=== PATIENT | female | born 1930 | race Caucasian/White ===

== ENCOUNTER → 2016-07-26 | Outpatient (CLI) | payer MEDICARE, OTHER | LOC: MW.CHIM 08:00 | PROVIDERS: ATTEND Internal Medicine | DX: I42.8 Other cardiomyopathies (principal); I10 Essential (primary) hypertension; I34.0 Nonrheumatic mitral (valve) insufficiency; I35.1 Nonrheumatic aortic (valve) insufficiency | CPT/HCPCS: 99204 ==

== ENCOUNTER → 2016-08-05 | Outpatient (CLI) | payer MEDICARE, OTHER ==
--- NOTE | 2016-08-09 11:44 | ECHO ---
EXAM DATE: 08/05/16 PATIENT'S AGE: 85 The echocardiogram report can be seen in this patient's EMR (Electronic Medical Record) in the Reports section. FOREIGN
== END | disposition home or self-care (01) ==
LOC: MW.US 13:56
PROVIDERS: ATTEND Internal Medicine
DX: I42.9 Cardiomyopathy, unspecified (principal); I34.0 Nonrheumatic mitral (valve) insufficiency; I35.1 Nonrheumatic aortic (valve) insufficiency; I51.7 Cardiomegaly
CPT/HCPCS: 93306

== ENCOUNTER 2017-05-11 13:41 | Emergency (ER) | payer MEDICARE, OTHER ==
[2017-05-11] MEDS ORDERED: Ondansetron 4 MG/2 ML SDV IVPUSH ONE (13:50)
[2017-05-11] MEDS ORDERED: Morphine 2 MG/ML Syringe IVPUSH ONE (13:50)
--- NOTE | 2017-05-11 13:54 | EDM.PDOC ---
ED HPI GENERAL MEDICAL PROBLEM - General Chief Complaint: Back Pain or Injury Stated Complaint: BACK PAIN Time Seen by Provider: 05/11/17 13:45 - History of Present Illness INITIAL COMMENTS - FREE TEXT/NARRATIVE: HISTORY AND PHYSICAL: History of present illness: Patient is an 86-year-old female presents concern of acute low back pain she was in the clinic and bent over and got an acute pain in her lower back in the region of her lower lumbar spine she has had back problems but there 20 years removed which she had surgery of her upper back she denies numbness weakness incontinence or retention bowel bladder states pain is worse with any movement Review of systems: As per history of present illness and below otherwise all systems reviewed and negative. Past medical history: As per history of present illness and as reviewed below otherwise noncontributory. Surgical history: As per history of present illness and as reviewed below otherwise noncontributory. Social history: No reported history of drug or alcohol abuse. Family history: As per history of present illness and as reviewed below otherwise noncontributory. Physical exam: HEENT: Atraumatic, normocephalic, pupils reactive, negative for conjunctival pallor or scleral icterus, mucous membranes moist, throat clear, neck supple, nontender, trachea midline. Lungs: Clear to auscultation, breath sounds equal bilaterally, chest nontender. Heart: S1S2, regular, negative for clicks, rubs, or JVD. Abdomen: Soft, nondistended, nontender. Negative for masses or hepatosplenomegaly. Negative for costovertebral tenderness. Pelvis: Stable nontender. Genitourinary: Deferred. Rectal: Deferred. Extremities: Atraumatic, negative for cords or calf pain. Neurovascular unremarkable. Neuro: Awake, alert, oriented. Cranial nerves II through XII unremarkable. Cerebellum unremarkable. Motor and sensory unremarkable throughout. Exam nonfocal. Back: Patient has tenderness in the paravertebral region of the lumbar spine no vertebral body or point tenderness motor and sensory upper inferior extremity is unremarkable neurovascular exams unremarkable Diagnostics: EBC CMP UA chest x-ray EKG CT lumbar spine Therapeutics: Saline at 125 mL an hour morphine sulfate 2 mg IV Zofran 4 mg IV Impression: #1 acute low back pain Definitive disposition and diagnosis as appropriate pending reevaluation and review of above. - Related Data Allergies Allergy/AdvReac Type Severity Reaction Status Date / Time No Known Allergies Allergy Verified 06/11/15 10:34 Home Meds: Home Meds Aspirin [Adult Low Dose Aspirin EC] 81 mg PO DAILY 04/01/14 [History] Losartan Potassium [Cozaar] 50 mg PO DAILY 04/01/14 [History] Spironolactone [Aldactone] 25 mg PO DAILY 04/01/14 [History] Carvedilol [Coreg] 12.5 mg DAILY 05/11/17 [History] Past Medical History HEENT History: Reports: Cataract Cardiovascular History: Reports: Heart Failure, Pacemaker Respiratory History: Reports: None Gastrointestinal History: Reports: None Genitourinary History: Reports: None 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: Musculoskeletal History: Reports: Arthritis Neurological History: Reports: None Psychiatric History: Reports: None Endocrine/Metabolic History: Reports: None Hematologic History: Reports: None Immunologic History: Reports: None Oncologic (Cancer) History: Reports: None Dermatologic History: Reports: None - Infectious Disease History Infectious Disease History: Reports: Chicken Pox, Measles, Mumps, Rubella, Shingles - Past Surgical History HEENT Surgical History: Reports: Cataract Surgery Social & Family History - Family History Family Medical History: Noncontributory - Tobacco Use Smoking Status *Q: Never Smoker Second Hand Smoke Exposure: No - Alcohol Use Days Per Week of Alcohol Use: 0 - Recreational Drug Use Recreational Drug Use: No ED ROS GENERAL - Review of Systems Review Of Systems: ROS reveals no pertinent complaints other than HPI. ED EXAM, GENERAL - Physical Exam Exam: See Below (See dictation) Course - Vital Signs Text/Narrative:: Patient with significant improvement able to ambulate weight-bear discussed admission for observation patient declines and request discharge home states she 'll be safe and has no concerns about ability to ambulate perform routine functions or fall risk Last Recorded V/S: Last Vital Signs Temp 36.3 C 05/11/17 13:57 Pulse 60 05/11/17 13:57 Resp 16 05/11/17 13:57 BP 116/53 L 05/11/17 13:57 Pulse Ox 97 05/11/17 13:57 - Orders/Labs/Meds Orders: Active Orders 24 hr Category Date Time Status EKG Documentation Completion [RC] STAT Care 05/11/17 13:50 Active Sodium Chloride 0.9% [Normal Saline] 1,000 ml Med 05/11/17 14:00 Active IV STAT Medication Orders Sodium Chloride (Normal Saline) 1,000 mls @ 125 mls/hr IV STAT [facility] Labs: Laboratory Tests 05/11/17 05/11/17 05/11/17 Range/Units 14:03 14:03 15:30 WBC 5.74 (4.0-11.0) K/uL RBC 3.68 L (4.30-5.90) M/uL Hgb 11.0 L (12.0-16.0) g/dL Hct 33.4 L (36.0-46.0) % MCV 90.8 (80.0-98.0) fL MCH 29.9 (27.0-32.0) pg MCHC 32.9 (31.0-37.0) g/dL RDW Std Deviation 44.6 (28.0-62.0) fl RDW Coeff of Sylwia 13 (11.0-15.0) % Plt Count 184 (150-400) K/uL MPV 10.80 (7.40-12.00) fL Neut % (Auto) 60.6 (48.0-80.0) % Lymph % (Auto) 26.3 (16.0-40.0) % [place] % (Auto) 11.5 (0.0-15.0) % Eos % (Auto) 1.6 (0.0-7.0) % Baso % (Auto) 0.0 (0.0-1.5) % Neut # (Auto) 3.5 (1.4-5.7) K/uL Lymph # (Auto) 1.5 (0.6-2.4) K/uL [place] # (Auto) 0.7 (0.0-0.8) K/uL Eos # (Auto) 0.1 (0.0-0.7) K/uL Baso # (Auto) 0.0 (0.0-0.1) K/uL Nucleated RBC % 0.0 /100WBC Nucleated RBCs # 0 K/uL Sodium 136 (136-146) mmol/L Potassium 4.4 (3.5-5.1) mmol/L Chloride 104 (98-110) mmol/L Carbon Dioxide 23 (21-31) mmol/L BUN 10 (6.0-23.0) mg/dL Creatinine 0.9 (0.6-1.5) mg/dL Est Cr Clr Drug Dosing TNP Estimated GFR (MDRD) 59.1 ml/min Glucose 86 (60-110) mg/dL Calcium 9.2 (8.8-10.8) mg/dL Total Bilirubin 0.6 (0.1-1.5) mg/dL AST 18 (5-40) IU/L ALT 13 (8-54) IU/L Alkaline Phosphatase 48 (40-150) Total Protein 6.3 (6.0-8.0) g/dL Albumin 3.9 (3.4-4.8) g/dL Globulin 2.4 (2.0-3.5) g/dL Albumin/Globulin Ratio 1.6 (1.3-2.8) Urine Color YELLOW Urine Appearance CLEAR Urine pH 7.0 (5.0-8.0) Ur Specific [place] 1.010 (1.001-1.035) Urine Protein NEGATIVE (NEGATIVE) mg/dL Urine Glucose (UA) NEGATIVE (NEGATIVE) mg/dL Urine Ketones NEGATIVE (NEGATIVE) mg/dL Urine Occult Blood NEGATIVE (NEGATIVE) Urine Nitrite NEGATIVE (NEGATIVE) Urine Bilirubin NEGATIVE (NEGATIVE) Urine Urobilinogen 0.2 (<2.0) EU/dL Ur Leukocyte Esterase NEGATIVE (NEGATIVE) Urine RBC 0-1 (0-2/HPF) Urine WBC 0-1 (0-5/HPF) Ur Epithelial Cells RARE (NONE-FEW) Urine Bacteria RARE (NEGATIVE) Meds: Medications Generic Name Dose Route Start Last Admin Trade Name Freq PRN Reason Stop Dose Admin Sodium Chloride 1,000 mls @ 125 mls/hr 05/11/17 14:00 Normal Saline IV STAT [facility] Discontinued Medications Generic Name Dose Route Start Last Admin Trade Name Freq PRN Reason Stop Dose Admin Acetaminophen 1,000 mg 05/11/17 15:37 05/11/17 15:43 Tylenol Extra Strength PO 05/11/17 15:38 1,000 mg ONETIME ONE Administration Morphine Sulfate 2 mg 05/11/17 13:50 Morphine IVPUSH 05/11/17 13:51 ONETIME ONE Ondansetron HCl 4 mg 05/11/17 13:50 Zofran IVPUSH 05/11/17 13:51 ONETIME ONE Departure - Departure Time of Disposition: 16:37 Disposition: Home, Self-Care 01 Condition: Good Clinical Impression: Back pain, Compression fracture - Discharge Information Referrals: PCP,None [Primary Care Provider] - Forms: ED Department Discharge Additional Instructions: The following information is given to patients seen in the emergency department who are being discharged to home. This information is to outline your options for follow-up care. We provide all patients seen in our emergency department with a follow-up referral. The need for follow-up, as well as the timing and circumstances, are variable depending upon the specifics of your emergency department visit. If you don't have a primary care physician on staff, we will provide you with a referral. We always advise you to contact your personal physician following an emergency department visit to inform them of the circumstance of the visit and for follow-up with them and/or the need for any referrals to a consulting specialist. The emergency department will also refer you to a specialist when appropriate. This referral assures that you have the opportunity for followup care with a specialist. All of these measure are taken in an effort to provide you with optimal care, which includes your followup. Under all circumstances we always encourage you to contact your private physician who remains a resource for coordinating your care. When calling for followup care, please make the office aware that this follow-up is from your recent emergency room visit. If for any reason you are refused follow-up, please contact the [facility] emergency department at and asked to speak to the emergency department charge nurse. Motrin/Tylenol as directed follow-up primary medical doctor call to schedule appointment return as needed as discussed - My Orders Last 24 Hours: My Active Orders 05/11/17 13:50 EKG Documentation Completion [RC] STAT 05/11/17 14:00 Sodium Chloride 0.9% [Normal Saline] 1,000 ml IV STAT - Assessment/Plan Last 24 Hours: My Active Orders 05/11/17 13:50 EKG Documentation Completion [RC] STAT 05/11/17 14:00 Sodium Chloride 0.9% [Normal Saline] 1,000 ml IV STAT
[2017-05-11] MEDS ORDERED: Sodium Chloride 0.9% 1,000 ML IV SCH (14:00)
[2017-05-11 14:17] VITALS: BP 116/53
[2017-05-11 14:34] LABS: CHLORIDE,CL 104 mmol/L (98-110); SODIUM,NA 136 mmol/L (136-146)
--- NOTE | 2017-05-11 14:59 | CR ---
EXAMINATION: AP chest radiograph. HISTORY: Shortness of breath. Comparison: 09/21/2016. FINDINGS: The trachea is midline. The heart is borderline in size. There is a left-sided pacemaker noted. Chron ic interstitial prominence. No focal consolidation or pleural effusion. Osseous structures appear osteopenic. IMPRESSION: No acute cardiopulmonary process.
--- NOTE | 2017-05-11 15:09 | CT ---
EXAMINATION: CT lumbar spine HISTORY: Pain COMPARISON: None TECHNIQUE: Axial CT images obtained through the lumbar spine without contrast. Coronal and sagittal r econstructions obtained. FINDINGS: Atelectasis noted within the lung bases. Visualized osseous structures appear osteopenic. T here is a mild compression deformity at T11. Mild superior endplate compression deformity noted at L2 . SI joints are symmetric. Mild marginal osteophytes noted. The visualized retroperitoneal structures appear grossly normal. IMPRESSION: 1. Moderate generalized osteopenia. 2. Age-indeterminate mild compression deformity at T11 and superior endplate compression deformity at L2. 3. Otherwise mild degenerative changes noted within the lumbar spine.
[2017-05-11] MEDS ORDERED: Acetaminophen 500 MG Tab PO ONE (15:37)
== END 2017-05-11 16:50 | disposition home or self-care (01) ==
LOC: MW.ED 13:41
DX: M48.55XA Collapsed vertebra, not elsewhere classified, thoracolumbar region, initial encounter for fracture (principal); Z79.82 Long term (current) use of aspirin; Z98.890 Other specified postprocedural states
CPT/HCPCS: 36415; 71045; 72131; 80053; 81001; 85025; 93005; 96360; 96361; 99284; A9270

== ENCOUNTER 2017-05-14 08:59 | Observation (INO) | payer MEDICARE, OTHER ==
[2017-05-14] MEDS ORDERED: Morphine 2 MG/ML Syringe IM ONE (09:22)
[2017-05-14] MEDS ORDERED: Ondansetron 4 MG Tab.DIS PO ONE (09:22)
--- NOTE | 2017-05-14 09:56 | EDM.PDOC ---
ED HPI GENERAL MEDICAL PROBLEM - General Chief Complaint: Back Pain or Injury Stated Complaint: BACK PAIN Time Seen by Provider: 05/14/17 09:49 - History of Present Illness INITIAL COMMENTS - FREE TEXT/NARRATIVE: HISTORY AND PHYSICAL: History of present illness: Patient is a 86-year-old female was seen by myself on the for low back pain that occurred when she bent over to clinic she was diagnosed with a compression fracture she opted for discharge home she returns now with low back pain intractable unresponsive to medication. She had difficulty getting around at home with this pain. There's been no numbness weakness incontinence or retention of bowel or bladder Review of systems: As per history of present illness and below otherwise all systems reviewed and negative. Past medical history: As per history of present illness and as reviewed below otherwise noncontributory. Surgical history: As per history of present illness and as reviewed below otherwise noncontributory. Social history: No reported history of drug or alcohol abuse. Family history: As per history of present illness and as reviewed below otherwise noncontributory. Physical exam: HEENT: Atraumatic, normocephalic, pupils reactive, negative for conjunctival pallor or scleral icterus, mucous membranes moist, throat clear, neck supple, nontender, trachea midline. Lungs: Clear to auscultation, breath sounds equal bilaterally, chest nontender. Heart: S1S2, regular, negative for clicks, rubs, or JVD. Abdomen: Soft, nondistended, nontender. Negative for masses or hepatosplenomegaly. Negative for costovertebral tenderness. Pelvis: Stable nontender. Genitourinary: Deferred. Rectal: Deferred. Extremities: Atraumatic, negative for cords or calf pain. Neurovascular unremarkable. Neuro: Awake, alert, oriented. Cranial nerves II through XII unremarkable. Cerebellum unremarkable. Motor and sensory unremarkable throughout. Exam nonfocal. Back: Patient has tenderness in region of her lower thoracic and upper lumbar spine this is in the region of her compression fracture Diagnostics: None Therapeutics: Morphine 2 mg IM Zofran 4 mg Impression: #1 intractable pain #2 history of vertebral compression fracture Definitive disposition and diagnosis as appropriate pending reevaluation and review of above. back Pain Score (Numeric/FACES): 9 - Related Data Allergies Allergy/AdvReac Type Severity Reaction Status Date / Time No Known Allergies Allergy Verified 05/14/17 09:12 Home Meds: Home Meds Aspirin [Adult Low Dose Aspirin EC] 81 mg PO DAILY 04/01/14 [History] Losartan Potassium [Cozaar] 50 mg PO DAILY 04/01/14 [History] Spironolactone [Aldactone] 25 mg PO DAILY 04/01/14 [History] Carvedilol [Coreg] 12.5 mg DAILY 05/11/17 [History] Vitamin E 400 unit PO DAILY 05/14/17 [History] Past Medical History HEENT History: Reports: Cataract Cardiovascular History: Reports: Heart Failure, Pacemaker Respiratory History: Reports: None Gastrointestinal History: Reports: None Genitourinary History: Reports: None 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: Musculoskeletal History: Reports: Arthritis Other Musculoskeletal History: back surgery, 20 yrs ago Neurological History: Reports: None Psychiatric History: Reports: None Endocrine/Metabolic History: Reports: None Hematologic History: Reports: None Immunologic History: Reports: None Oncologic (Cancer) History: Reports: None Dermatologic History: Reports: None - Infectious Disease History Infectious Disease History: Reports: Chicken Pox, Measles, Mumps, Rubella, Shingles - Past Surgical History HEENT Surgical History: Reports: Cataract Surgery Social & Family History - Family History Family Medical History: Noncontributory - Tobacco Use Smoking Status *Q: Never Smoker Second Hand Smoke Exposure: No - Caffeine Use Caffeine Use: Reports: None - Alcohol Use Days Per Week of Alcohol Use: 0 - Recreational Drug Use Recreational Drug Use: No ED ROS GENERAL - Review of Systems Review Of Systems: ROS reveals no pertinent complaints other than HPI. ED EXAM,LOWER BACK PAIN/INJURY - Physical Exam Exam: See Below (See dictation) Course - Vital Signs Last Recorded V/S: Last Vital Signs Temp 36.6 C 05/14/17 09:15 Pulse 61 05/14/17 09:15 Resp 18 05/14/17 09:15 BP 128/35 L 05/14/17 09:15 Pulse Ox 94 L 05/14/17 09:15 - Orders/Labs/Meds Meds: Medications Discontinued Medications Generic Name Dose Route Start Last Admin Trade Name Freq PRN Reason Stop Dose Admin Morphine Sulfate 2 mg 05/14/17 09:22 05/14/17 09:28 Morphine IM 05/14/17 09:23 2 mg ONETIME ONE Administration Ondansetron HCl 4 mg 05/14/17 09:22 05/14/17 09:28 Zofran Odt PO 05/14/17 09:23 4 mg ONETIME ONE Administration Departure - Departure Time of Disposition: 09:56 Disposition: Home, Self-Care 01 Condition: Good Clinical Impression: Vertebral compression fracture - Discharge Information Referrals: Rene Rousseau MD [Primary Care Provider] -
[2017-05-14] MEDS ORDERED: HYDROmorphone 2 MG/ML Syringe IVPUSH ONE (10:02)
--- NOTE | 2017-05-14 10:48 | PCM.HP ---
H&P History of Present Illness - General Date of Service: 05/14/17 Admit Problem/Dx: Intractable pain secondary to Lumbar Compression fracture - History of Present Illness Initial Comments - Free Text/Narative: 86-year-old female presenting to the emergency department with a chief complaint of lower back pain 4 days with past medical history of hypertension and bradycardia with pacemaker. Patient states that on of this last week while putting on her underwear she felt immediate pain in her lower back. She states that she did not fall but experienced sudden pain without radiation into her lower extremities. She denies any numbness, tingling, or weakness. Pain is currently 7 out of 10 and centralized to her lumbar spine. She did go to the emergency department the following day, Monday05/11/17, where she was evaluated and found to have an age-indeterminate mild compression deformity at T11 and superior endplate compression deformity at L2 by CT. At that time, she refused admission for her pain and states that she went home and took ibuprofen. Pain did not seem to improve and finally on Monday she preceded to come back to the emergency department for the same complaint. In the emergency department she was assessed and it was determined that her symptoms were secondary to her findings on 04/24/17. In the emergency room 05/11/17: CBC and UA were unremarkable. CMP showed mild elevation of BNP at 223. Chest x-ray was unremarkable. CT of lumbar spine showed moderate generalized osteopenia. Age-indeterminate mild compression deformity at T11 and superior endplate compression deformity at L2. Otherwise mild degenerative changes noted within the lumbar spine. Patient was admitted for intractable pain secondary to lumbar compression fracture. back Pain Score (Numeric/FACES): 9 - Related Data Allergies/Adverse Reactions: Allergies Allergy/AdvReac Type Severity Reaction Status Date / Time No Known Allergies Allergy Verified 05/14/17 09:12 Home Medications: Home Meds Aspirin [Adult Low Dose Aspirin EC] 81 mg PO DAILY 04/01/14 [History] Losartan Potassium [Cozaar] 50 mg PO DAILY 04/01/14 [History] Spironolactone [Aldactone] 25 mg PO DAILY 04/01/14 [History] Carvedilol [Coreg] 12.5 mg DAILY 05/11/17 [History] Vitamin E 400 unit PO DAILY 05/14/17 [History] Past Medical History HEENT History: Reports: Cataract Cardiovascular History: Reports: Heart Failure, Pacemaker Respiratory History: Reports: None Gastrointestinal History: Reports: None Genitourinary History: Reports: None 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: Musculoskeletal History: Reports: Arthritis Other Musculoskeletal History: back surgery, 20 yrs ago Neurological History: Reports: None Psychiatric History: Reports: None Endocrine/Metabolic History: Reports: None Hematologic History: Reports: None Immunologic History: Reports: None Oncologic (Cancer) History: Reports: None Dermatologic History: Reports: None - Infectious Disease History Infectious Disease History: Reports: Chicken Pox, Measles, Mumps, Rubella, Shingles - Past Surgical History HEENT Surgical History: Reports: Cataract Surgery Social & Family History - Family History Family Medical History: Noncontributory - Tobacco Use Smoking Status *Q: Never Smoker Second Hand Smoke Exposure: No - Caffeine Use Caffeine Use: Reports: None - Alcohol Use Days Per Week of Alcohol Use: 0 - Recreational Drug Use Recreational Drug Use: No H&P Review of Systems - Review of Systems: Review Of Systems: See Below General: Denies: Fever, Chills, Malaise, Weakness, Fatigue HEENT: Denies: Headaches, Sore Throat Pulmonary: Denies: Shortness of Breath, Wheezing, Cough, Sputum Cardiovascular: Denies: Chest Pain, Palpitations, Edema Gastrointestinal: Denies: Abdominal Pain, Black Stool, Bloody Stool, Diarrhea, Nausea, Vomiting Genitourinary: Denies: Dysuria, Hematuria, Flank Pain Musculoskeletal: Reports: Back Pain. Denies: Neck Pain, Leg Pain Skin: Denies: Cyanosis Psychiatric: Denies: Confusion Neurological: Denies: Confusion, Dizziness, Headache Exam - Exam Exam: See Below - Vital Signs Vital Signs: Last Vital Signs Temp 97.8 F 05/14/17 09:15 Pulse 64 05/14/17 10:21 Resp 18 05/14/17 10:21 BP 113/50 L 05/14/17 10:21 Pulse Ox 94 L 05/14/17 10:21 Weight: 65.771 kg - Exam Quality Assessment: DVT Prophylaxis General: Alert, Oriented, Cooperative, Mild Distress HEENT: Conjunctiva Clear, EACs Clear, EOMI, Hearing Intact, Mucosa Moist & [place] , Nares Patent, Normal Nasal Septum, Posterior Pharynx Clear, PERRLA Neck: Supple, Trachea Midline, 2 Lungs: Clear to Auscultation, Normal Respiratory Effort. No: Crackles, Rales, Rhonchi Cardiovascular: Regular Rate, Regular Rhythm, Normal S1, Normal S2 GI/Abdominal Exam: Normal Bowel Sounds, Soft, Non-Tender, No Organomegaly, No Distention, Pelvis Stable Back Exam: Vertebral Tenderness (Lower thoracic and L2-L5 with paraspinal muscle spasms. ) Extremities: Normal Inspection, Normal Range of Motion, Non-Tender, No Pedal Edema, Normal Capillary Refill, Limited Range of Motion. No: Arm Pain, Neha's Sign Peripheral Pulses: 2+: Radial (L), Radial (R), Posterior Tibial (L), Posterior Tibial (R), Dorsalis Pedis (L), Dorsalis Pedis (R) Skin: Warm, Dry, Intact Neurological: Cranial Nerves Intact Neuro Extensive - Mental Status: Alert, Oriented x3, Normal Mood/Affect, Normal Cognition Neuro Extensive - Motor, Sensory, Reflexes: CN II-XII Intact Psychiatric: Alert, Normal Affect, Normal Mood *Q Meaningful Use (ADM) - VTE *Q VTE Criteria *Q: - Stroke *Q Stroke Criteria *Q: - AMI *Q AMI Criteria *Q: - Problem List (1) Intractable back pain SNOMED Code(s): 357364625 ICD Code: M54.9 - DORSALGIA, UNSPECIFIED Status: Acute Priority: High Current Visit: Yes (2) Hypertension SNOMED Code(s): 16976985 ICD Code: I10 - ESSENTIAL (PRIMARY) HYPERTENSION Status: Chronic Priority : Low Current Visit: Yes Qualifiers: Hypertension type: unspecified Qualified Code(s): I10 - Essential (primary ) hypertension (3) History of bradycardia SNOMED Code(s): 444227761643201 ICD Code: Z86.79 - PERSONAL HISTORY OF OTHER DISEASES OF THE CIRCULATORY SYSTEM Status: Chronic Current Visit: Yes (4) Vertebral compression fracture SNOMED Code(s): 71190395 ICD Code: M48.50XA - COLLAPSED VERTEBRA, NEC, SITE UNSP, INIT Status: Acute Priority: High Current Visit: Yes Problem List Initiated/Reviewed/Updated: Yes Assessment/Plan Comment:: 86-year-old female admitted 05/14/17 for intractable pain secondary to lumbar compression fracture with past medical history of hypertension and bradycardia with pacer. Intractable pain: We'll treat with acetaminophen, morphine, and [place] 5-325. In addition have ordered 5 mg cyclobenzaprine 3 times a day when necessary for muscle spasms. 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 She is requested that we consult Dr. Doll to possibly stop by and see if she has any options. In addition, she is requesting possible home care. Hypertension: Currently well controlled well continue home medications and monitor. 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 Patient states it was placed [address] Rios in [facility]. It is quite old and they will not replace the pacer. Patient does mention that she is DNR/DNI. VTE proph: SCD, Heparin Dispo: 1-2 days pending.
[2017-05-14] MEDS ORDERED: Polyethylene Glycol 3350 Powder 17 GM Packet PO PRN (11:21)
[2017-05-14] MEDS ORDERED: Acetaminophen 325 MG Tab PO PRN (11:21)
[2017-05-14] MEDS ORDERED: Docusate Sodium 100 MG Cap PO PRN (11:21)
[2017-05-14] MEDS ORDERED: Ondansetron 4 MG Tab.DIS PO PRN (11:21)
[2017-05-14] MEDS ORDERED: Temazepam 15 MG Cap PO PRN (11:21)
[2017-05-14] MEDS ORDERED: Cyclobenzaprine 5 MG Tab PO PRN ×2 (11:21→20:30)
[2017-05-14 12:07] LABS: CHLORIDE,CL 106 mmol/L (98-110); SODIUM,NA 140 mmol/L (136-146)
[2017-05-14] MEDS: Heparin Sodium 5,000 Units/ML Vial SUBCUT SCH (12:37)
[2017-05-14] MEDS: Morphine 2 MG/ML Syringe IVPUSH PRN ×2 (13:06→20:25)
[2017-05-15] MEDS: Heparin Sodium 5,000 Units/ML Vial SUBCUT SCH ×3 (00:19→22:41)
[2017-05-15] MEDS: Morphine 2 MG/ML Syringe IVPUSH PRN ×2 (04:12→06:33)
[2017-05-15] MEDS: Aspirin 81 MG Tab.EC PO SCH (09:25)
[2017-05-15] MEDS: Ibuprofen 400 MG Tab PO PRN ×2 (10:34→23:05)
--- NOTE | 2017-05-15 12:05 | PCM.PN ---
- General Info Date of Service: 05/15/17 Admission Dx/Problem (Free Text): Intractable pain secondary to Lumbar Compression fracture Subjective Update: Haivng pain to back with movement. Some improvement. Only has received Morphine , no oral medication for management of pain. No chest pain or SOB. No weakness to limbs, only due to pain being induced with movement. She is nervous to move. Functional Status: Reports: Tolerating Diet, Urinating. Denies: Ambulating - Review of Systems General: Reports: No Symptoms. Denies: Fever Pulmonary: Reports: No Symptoms. Denies: Shortness of Breath Cardiovascular: Reports: No Symptoms. Denies: Chest Pain Gastrointestinal: Reports: No Symptoms. Denies: Abdominal Pain, Nausea, Vomiting Genitourinary: Reports: No Symptoms. Denies: Dysuria, Frequency, Burning, Incontinence Musculoskeletal: Reports: Back Pain (low back pain). Denies: Neck Pain Neurological: Reports: No Symptoms. Denies: Confusion Psychiatric: Reports: No Symptoms - Patient Data Vitals - Most Recent: Last Vital Signs Temp 99.5 F 05/15/17 08:00 Pulse 70 05/15/17 08:00 Resp 16 05/15/17 08:00 BP 97/43 L 05/15/17 08:00 Pulse Ox 91 L 05/15/17 08:00 Weight - Most Recent: 65.771 kg I&O - Last 24 Hours: Intake & Output 05/14/17 05/15/17 05/15/17 22:59 06:59 14:59 Intake Total 100 580 Output Total 750 900 Balance -650 -320 Lab Results Last 24 Hours: Laboratory Results - last 24 hr 05/14/17 05/14/17 Range/Units 11:39 20:55 Sodium 140 (136-146) mmol/L Potassium 4.1 (3.5-5.1) mmol/L Chloride 106 (98-110) mmol/L Carbon Dioxide 23 (21-31) mmol/L BUN 13 (6.0-23.0) mg/dL Creatinine 0.8 (0.6-1.5) mg/dL Est Cr Clr Drug Dosing 47.27 mL/min Estimated GFR (MDRD) > 60.0 ml/min Glucose 85 (60-110) mg/dL Calcium 8.9 (8.8-10.8) mg/dL Phosphorus 4.4 (2.4-4.7) mg/dL Magnesium 1.5 (1.5-2.3) mEq/L Total Bilirubin 0.5 (0.1-1.5) mg/dL AST 19 (5-40) IU/L ALT 15 (8-54) IU/L Alkaline Phosphatase 49 (40-150) Total Protein 5.7 L (6.0-8.0) g/dL Albumin 3.7 (3.4-4.8) g/dL Globulin 2.0 (2.0-3.5) g/dL Albumin/Globulin Ratio 1.9 (1.3-2.8) Urine Color YELLOW Urine Appearance HAZY Urine pH 6.0 (5.0-8.0) Ur Specific [place] 1.010 (1.001-1.035) Urine Protein NEGATIVE (NEGATIVE) mg/dL Urine Glucose (UA) NEGATIVE (NEGATIVE) mg/dL Urine Ketones NEGATIVE (NEGATIVE) mg/dL Urine Occult Blood NEGATIVE (NEGATIVE) Urine Nitrite NEGATIVE (NEGATIVE) Urine Bilirubin NEGATIVE (NEGATIVE) Urine Urobilinogen 0.2 (<2.0) EU/dL Ur Leukocyte Esterase TRACE (NEGATIVE) Urine RBC NONE SEEN (0-2/HPF) Urine WBC 0-1 (0-5/HPF) Ur Epithelial Cells RARE (NONE-FEW) Urine Bacteria FEW (NEGATIVE) Med Orders - Current: Current Medications Acetaminophen (Tylenol) 650 mg PO Q4H PRN PRN Reason: Pain (Mild 1-3)/fever Hydrocodone Bitart/Acetaminophen (Leon 325-5 Mg) 1 tab PO Q4H PRN PRN Reason: Pain (moderate 4-6) Aspirin (Halfprin) 81 mg PO DAILY [facility] Last Admin: 05/15/17 09:25 Dose: 81 mg Carvedilol (Coreg) 12.5 mg PO DAILY [facility] Cyclobenzaprine HCl (Flexeril) 5 mg PO Q8H PRN PRN Reason: Muscle Spasm Last Admin: 05/14/17 20:46 Dose: 5 mg Docusate Sodium (Colace) 100 mg PO BID PRN PRN Reason: Constipation Last Admin: 05/14/17 13:06 Dose: 100 mg Heparin Sodium (Porcine) (Heparin Sodium) 5,000 units SUBCUT Q12H [facility] Last Admin: 05/15/17 10:38 Dose: 5,000 units Ibuprofen (Motrin) 400 mg PO Q6H PRN PRN Reason: back pain Last Admin: 05/15/17 10:34 Dose: 400 mg Losartan Potassium (Cozaar) 50 mg PO DAILY [facility] Morphine Sulfate (Morphine) 2 mg IVPUSH Q2H PRN PRN Reason: Pain (severe 7-10) Last Admin: 05/15/17 06:33 Dose: 2 mg Ondansetron HCl (Zofran Odt) 4 mg PO Q4H PRN PRN Reason: nausea, able to take PO Polyethylene Glycol (Miralax) 17 gm PO DAILY PRN PRN Reason: Constipation Spironolactone (Aldactone) 25 mg PO DAILY [facility] Temazepam (Restoril) 15 mg PO BEDTIME PRN PRN Reason: Sleep Discontinued Medications Cyclobenzaprine HCl (Flexeril) 5 mg PO TID PRN PRN Reason: Muscle Spasm Last Admin: 05/14/17 12:37 Dose: 5 mg Hydromorphone HCl (Dilaudid) 0.5 mg IVPUSH ONETIME ONE Stop: 05/14/17 10:03 Last Admin: 05/14/17 10:19 Dose: 0.5 mg Morphine Sulfate (Morphine) 2 mg IM ONETIME ONE Stop: 05/14/17 09:23 Last Admin: 05/14/17 09:28 Dose: 2 mg Ondansetron HCl (Zofran Odt) 4 mg PO ONETIME ONE Stop: 05/14/17 09:23 Last Admin: 05/14/17 09:28 Dose: 4 mg - Exam General: Alert, Oriented, Cooperative, No Acute Distress Neck: Supple Lungs: Clear to Auscultation, Normal Respiratory Effort Cardiovascular: Regular Rate, Regular Rhythm GI/Abdominal Exam: Normal Bowel Sounds, Soft, Non-Tender, No Organomegaly, No Distention, No Abnormal Bruit, No Mass, Pelvis Stable Back Exam: Normal Inspection, Other (tenderness lower thoracic top of lumbar region, bilateral to spine). No: Full Range of Motion Extremities: Normal Inspection, Normal Range of Motion (hurts to back when moved , but ROM not affected.), Non-Tender, No Pedal Edema, Normal Capillary Refill Neurological: No New Focal Deficit Psy/Mental Status: Alert - Problem List & Annotations (1) Intractable back pain SNOMED Code(s): 970388434 Code(s): M54.9 - DORSALGIA, UNSPECIFIED Status: Acute Priority: High Current Visit: Yes (2) Vertebral compression fracture SNOMED Code(s): 14025652 Code(s): M48.50XA - COLLAPSED VERTEBRA, NEC, SITE UNSP, INIT Status: Acute Priority: High Current Visit: Yes Qualifiers: Encounter type: subsequent encounter (3) History of bradycardia SNOMED Code(s): 570625193570882 Code(s): Z86.79 - PERSONAL HISTORY OF OTHER DISEASES OF THE CIRCULATORY SYSTEM Status: Chronic Current Visit: Yes (4) Hypertension SNOMED Code(s): 34032994 Code(s): I10 - ESSENTIAL (PRIMARY) HYPERTENSION Status: Chronic Priority : Low Current Visit: Yes Qualifiers: Hypertension type: unspecified Qualified Code(s): I10 - Essential (primary ) hypertension (5) Pacemaker SNOMED Code(s): 798323545 Code(s): Z95.0 - PRESENCE OF CARDIAC PACEMAKER Status: Chronic Current Visit: Yes - Problem List Review Problem List Initiated/Reviewed/Updated: Yes - My Orders Last 24 Hours: My Active Orders 05/15/17 08:16 Consult to Physical Therapy [PT Evaluation and Treatment] [CONS] Routine 05/15/17 10:17 Ibuprofen [Motrin] 400 mg PO Q6H PRN - Plan Plan:: 86-year-old female admitted 05/14/17 for intractable pain secondary to lumbar compression fracture with past medical history of hypertension and bradycardia with pacer. 1. Intractable pain: Continue acetaminophen, morphine, and Leon 5-325. Will NSAID, Motrin PRN. Flexeril ordered PRN as well. PT ordered for evaluate and treatment, she did well and PT recommended neoprene back brace, spoke with [facility] will obtain brace today and monitor. Will arrange Home Health for discharge home. Hoping to control pain today with PO agents and PT. Possible home in am if pain better controlled. 2. Hypertension: Controlled. continue home medications and monitor. 3. Bradycardia with pacer: Stable. At end of battery life, no plan to replace. Monitored with Cardiology. VTE prophylaxis: Heparin Dispo: 1-2 days pending.
[2017-05-15] MEDS: Acetaminophen/HYDROcodone 325-5 MG Tab PO PRN ×2 (15:26→20:54)
[2017-05-15] MEDS: Spironolactone 25 MG Tab PO SCH (17:05)
[2017-05-15] MEDS: Carvedilol 12.5 MG Tab PO SCH (17:05)
[2017-05-15] MEDS: Losartan 50 MG Tab PO SCH (17:06)
[2017-05-15] MEDS: Docusate Sodium 100 MG Cap PO SCH (20:44)
[2017-05-16] MEDS: Acetaminophen/HYDROcodone 325-5 MG Tab PO PRN ×2 (08:20→20:43)
[2017-05-16] MEDS: Aspirin 81 MG Tab.EC PO SCH (08:21)
[2017-05-16] MEDS: Spironolactone 25 MG Tab PO SCH (08:21)
[2017-05-16] MEDS: Carvedilol 12.5 MG Tab PO SCH (08:21)
[2017-05-16] MEDS: Docusate Sodium 100 MG Cap PO SCH ×2 (08:21→20:44)
[2017-05-16] MEDS: Losartan 50 MG Tab PO SCH (08:22)
--- NOTE | 2017-05-16 09:10 | PCM.PN ---
- General Info Date of Service: 05/16/17 Admission Dx/Problem (Free Text): Intractable pain secondary to Lumbar Compression fracture Subjective Update: Having pain to back with movement, feeling better today. But doesn't feel safe to go home today, feels she needs a little more PT. Reports that oral medication , when given regularly, helps for management of pain. No chest pain or SOB. No weakness to limbs. Sitting up with meals. Functional Status: Reports: Pain Controlled (at times, still worse with movement , but doing more and able to ambulate to bathroom.), Tolerating Diet, Ambulating , Urinating - Review of Systems HEENT: Reports: No Symptoms. Denies: Headaches, Sore Throat, Visual Changes Pulmonary: Reports: No Symptoms. Denies: Shortness of Breath Cardiovascular: Reports: No Symptoms. Denies: Chest Pain Gastrointestinal: Reports: No Symptoms. Denies: Abdominal Pain, Nausea, Vomiting Genitourinary: Reports: No Symptoms. Denies: Dysuria, Frequency, Burning Musculoskeletal: Reports: Back Pain (low back pain, improving some.) Neurological: Reports: No Symptoms Psychiatric: Reports: No Symptoms - Patient Data Vitals - Most Recent: Last Vital Signs Temp 97.6 F 05/16/17 08:00 Pulse 65 05/16/17 08:21 Resp 20 05/16/17 08:00 BP 115/49 L 05/16/17 08:22 Pulse Ox 96 05/16/17 08:00 Weight - Most Recent: 65.771 kg I&O - Last 24 Hours: Intake & Output 05/15/17 05/16/17 05/16/17 22:59 06:59 14:59 Intake Total 650 400 Output Total 550 700 Balance 100 -300 Angel Results Last 24 Hours: Microbiology 05/14/17 20:55 Urine Culture - Final Urine, Clean Catch MIXED REEMA 10,000-100,000 CFU/ML Med Orders - Current: Current Medications Acetaminophen (Tylenol) 650 mg PO Q4H PRN PRN Reason: Pain (Mild 1-3)/fever Hydrocodone Bitart/Acetaminophen (Whitney 325-5 Mg) 1 tab PO Q4H PRN PRN Reason: Pain (moderate 4-6) Last Admin: 05/16/17 08:20 Dose: 1 tab Aspirin (Halfprin) 81 mg PO DAILY [facility] Last Admin: 05/16/17 08:21 Dose: 81 mg Carvedilol (Coreg) 12.5 mg PO DAILY [facility] Last Admin: 05/16/17 08:21 Dose: 12.5 mg Cyclobenzaprine HCl (Flexeril) 5 mg PO Q8H PRN PRN Reason: Muscle Spasm Last Admin: 05/14/17 20:46 Dose: 5 mg Docusate Sodium (Colace) 100 mg PO BID [facility] Last Admin: 05/16/17 08:21 Dose: 100 mg Heparin Sodium (Porcine) (Heparin Sodium) 5,000 units SUBCUT Q12H [facility] Last Admin: 05/15/17 22:41 Dose: 5,000 units Ibuprofen (Motrin) 400 mg PO Q6H PRN PRN Reason: back pain Last Admin: 05/15/17 23:05 Dose: 400 mg Losartan Potassium (Cozaar) 50 mg PO DAILY [facility] Last Admin: 05/16/17 08:22 Dose: 50 mg Morphine Sulfate (Morphine) 2 mg IVPUSH Q2H PRN PRN Reason: Pain (severe 7-10) Last Admin: 05/15/17 06:33 Dose: 2 mg Ondansetron HCl (Zofran Odt) 4 mg PO Q4H PRN PRN Reason: nausea, able to take PO Polyethylene Glycol (Miralax) 17 gm PO DAILY PRN PRN Reason: Constipation Spironolactone (Aldactone) 25 mg PO DAILY [facility] Last Admin: 05/16/17 08:21 Dose: 25 mg Temazepam (Restoril) 15 mg PO BEDTIME PRN PRN Reason: Sleep Discontinued Medications Cyclobenzaprine HCl (Flexeril) 5 mg PO TID PRN PRN Reason: Muscle Spasm Last Admin: 05/14/17 12:37 Dose: 5 mg Docusate Sodium (Colace) 100 mg PO BID PRN PRN Reason: Constipation Last Admin: 05/14/17 13:06 Dose: 100 mg Hydromorphone HCl (Dilaudid) 0.5 mg IVPUSH ONETIME ONE Stop: 05/14/17 10:03 Last Admin: 05/14/17 10:19 Dose: 0.5 mg Morphine Sulfate (Morphine) 2 mg IM ONETIME ONE Stop: 05/14/17 09:23 Last Admin: 05/14/17 09:28 Dose: 2 mg Ondansetron HCl (Zofran Odt) 4 mg PO ONETIME ONE Stop: 05/14/17 09:23 Last Admin: 05/14/17 09:28 Dose: 4 mg - Exam General: Alert, Oriented, Cooperative, No Acute Distress, Other (just got back to bed and is sore.) Neck: Supple Lungs: Clear to Auscultation, Normal Respiratory Effort Cardiovascular: Regular Rate, Regular Rhythm GI/Abdominal Exam: Normal Bowel Sounds, Soft, Non-Tender, No Organomegaly, No Distention, No Abnormal Bruit, No Mass, Pelvis Stable, Other (had BM today. ) Extremities: Normal Inspection, Normal Range of Motion, Non-Tender, No Pedal Edema, Normal Capillary Refill Neurological: No New Focal Deficit Psy/Mental Status: Alert, Normal Affect, Normal Mood - Problem List & Annotations (1) Intractable back pain SNOMED Code(s): 178367012 Code(s): M54.9 - DORSALGIA, UNSPECIFIED Status: Acute Priority: High Current Visit: Yes (2) Vertebral compression fracture SNOMED Code(s): 27412920 Code(s): M48.50XA - COLLAPSED VERTEBRA, NEC, SITE UNSP, INIT Status: Acute Priority: High Current Visit: Yes Qualifiers: Encounter type: subsequent encounter (3) History of bradycardia SNOMED Code(s): 416897875611003 Code(s): Z86.79 - PERSONAL HISTORY OF OTHER DISEASES OF THE CIRCULATORY SYSTEM Status: Chronic Current Visit: Yes (4) Hypertension SNOMED Code(s): 08995330 Code(s): I10 - ESSENTIAL (PRIMARY) HYPERTENSION Status: Chronic Priority : Low Current Visit: Yes Qualifiers: Hypertension type: unspecified Qualified Code(s): I10 - Essential (primary ) hypertension (5) Pacemaker SNOMED Code(s): 901990355 Code(s): Z95.0 - PRESENCE OF CARDIAC PACEMAKER Status: Chronic Current Visit: Yes - Problem List Review Problem List Initiated/Reviewed/Updated: Yes - My Orders Last 24 Hours: My Active Orders 05/15/17 08:16 Consult to Physical Therapy [PT Evaluation and Treatment] [CONS] Routine 05/15/17 10:17 Ibuprofen [Motrin] 400 mg PO Q6H PRN 05/15/17 21:00 Docusate Sodium [Colace] 100 mg PO BID 05/16/17 09:00 BMP [BASIC METABOLIC PANEL,BMP] [CHEM] Routine CBC WITH AUTO DIFF [HEME] Routine - Plan Plan:: 86-year-old female admitted 05/14/17 for intractable pain secondary to lumbar compression fracture with past medical history of hypertension and bradycardia with pacer. 1. Intractable pain: Improving some. Continue acetaminophen, morphine, and Whitney 5-325 as well as Motrin PRN. Flexeril ordered PRN as well. back brace to fitted when discharged. PT reports she is doing well. patient would like one more day with PT then home tomorrow, which is reasonable. Educated her that is she continues to feel unsafe going home, she may need short term rehabilitation at [facility]. Patient denies wanting this. Will arrange Home Health for discharge home. 2. Hypertension: Controlled. continue home medications and monitor. 3. Bradycardia with pacer: Stable. At end of battery life, no plan to replace. Monitored with Cardiology. VTE prophylaxis: Heparin Dispo: 1-2 days pending.
[2017-05-16 09:47] LABS: CHLORIDE,CL 104 mmol/L (98-110); SODIUM,NA 139 mmol/L (136-146)
[2017-05-16] MEDS: Heparin Sodium 5,000 Units/ML Vial SUBCUT SCH (11:57)
[2017-05-16] MEDS: Ibuprofen 400 MG Tab PO PRN ×2 (12:02→18:20)
[2017-05-17] MEDS: Aspirin 81 MG Tab.EC PO SCH (09:40)
[2017-05-17] MEDS: Spironolactone 25 MG Tab PO SCH (09:40)
[2017-05-17] MEDS: Losartan 50 MG Tab PO SCH (09:40)
[2017-05-17] MEDS: Carvedilol 12.5 MG Tab PO SCH (09:40)
[2017-05-17] MEDS: Docusate Sodium 100 MG Cap PO SCH (09:41)
--- NOTE | 2017-05-17 10:53 | PCM.DCSUM1 ---
Discharge Summary - Hospital Course Brief History: 86-year-old female presenting to the emergency department with a chief complaint of lower back pain 4 days with past medical history of hypertension and bradycardia with pacemaker. Patient states that on of this last week while putting on her underwear she felt immediate pain in her lower back. She states that she did not fall but experienced sudden pain without radiation into her lower extremities. She denies any numbness, tingling , or weakness. Pain is currently 7 out of 10 and centralized to her lumbar spine. She did go to the emergency department the following day, Monday05/11/17 , where she was evaluated and found to have an age-indeterminate mild compression deformity at T11 and superior endplate compression deformity at L2 by CT. At that time, she refused admission for her pain and states that she went home and took ibuprofen. Pain did not seem to improve and finally on Monday she preceded to come back to the emergency department for the same complaint. In the emergency department she was assessed and it was determined that her symptoms were secondary to her findings on 04/24/17. In the emergency room 05/11/17: CBC and UA were unremarkable. CMP showed mild elevation of BNP at 223. Chest x-ray was unremarkable. CT of lumbar spine showed moderate generalized osteopenia. Age-indeterminate mild compression deformity at T11 and superior endplate compression deformity at L2. Otherwise mild degenerative changes noted within the lumbar spine. Patient was admitted for intractable pain secondary to thoracic and lumbar compression fracture - Discharge Data Discharge Date: 05/17/17 Discharge Disposition: Home, W Home Health Agency 06 Condition: Good - Discharge Diagnosis/Problem(s) (1) Intractable back pain SNOMED Code(s): 092040385 ICD Code: M54.9 - DORSALGIA, UNSPECIFIED Status: Acute Priority: High Current Visit: Yes (2) Vertebral compression fracture SNOMED Code(s): 61563870 ICD Code: M48.50XA - COLLAPSED VERTEBRA, NEC, SITE UNSP, INIT Status: Acute Priority: High Current Visit: Yes Qualifiers: Encounter type: subsequent encounter (3) History of bradycardia SNOMED Code(s): 487410978672753 ICD Code: Z86.79 - PERSONAL HISTORY OF OTHER DISEASES OF THE CIRCULATORY SYSTEM Status: Chronic Current Visit: Yes (4) Hypertension SNOMED Code(s): 22857547 ICD Code: I10 - ESSENTIAL (PRIMARY) HYPERTENSION Status: Chronic Priority : Low Current Visit: Yes Qualifiers: Hypertension type: unspecified Qualified Code(s): I10 - Essential (primary ) hypertension (5) Pacemaker SNOMED Code(s): 668767600 ICD Code: Z95.0 - PRESENCE OF CARDIAC PACEMAKER Status: Chronic Current Visit: Yes - Patient Summary/Data Consults: Consultations 05/15/17 08:16 Consult to Physical Therapy [PT Evaluation and Treatment] [CONS] Routine - Patient Instructions Diet: Usual Diet as Tolerated Activity: As Tolerated Driving: Do Not Drive Showering/Bathing: May Shower Notify Provider of: Fever, Increased Pain, Swelling and Redness, Drainage, Nausea and/or Vomiting - Discharge Plan Prescriptions/Med Rec: Acetaminophen [Tylenol] 650 mg PO Q6H PRN #30 tablet PRN Reason: Pain (Mild 1-3)/fever Cyclobenzaprine [Flexeril] 5 mg PO BID PRN #15 tab PRN Reason: Muscle Spasm Docusate Sodium [Colace] 100 mg PO DAILY #30 cap Hydrocodone/Acetaminophen [[place] 5-325 Tablet] 1 each PO Q6H PRN #20 tablet PRN Reason: Pain Ibuprofen [Motrin] 400 mg PO QID PRN #30 tab PRN Reason: Pain Home Medications: Home Meds Aspirin [Adult Low Dose Aspirin EC] 81 mg PO DAILY 04/01/14 [History] Losartan Potassium [Cozaar] 50 mg PO DAILY 04/01/14 [History] Spironolactone [Aldactone] 25 mg PO DAILY 04/01/14 [History] Carvedilol [Coreg] 12.5 mg DAILY 05/11/17 [History] Vitamin E 400 unit PO DAILY 05/14/17 [History] Acetaminophen [Tylenol] 650 mg PO Q6H PRN #30 tablet 05/17/17 [Rx] Cyclobenzaprine [Flexeril] 5 mg PO BID PRN #15 tab 05/17/17 [Rx] Docusate Sodium [Colace] 100 mg PO DAILY #30 cap 05/17/17 [Rx] Hydrocodone/Acetaminophen [[place] 5-325 Tablet] 1 each PO Q6H PRN #20 tablet [Rx] Ibuprofen [Motrin] 400 mg PO QID PRN #30 tab 05/17/17 [Rx] Polyethylene Glycol 3350 [MiraLAX] 17 gm PO DAILY PRN packet 05/17/17 [Rx] Referrals: Rene Rousseau MD [Primary Care Provider] - - Discharge Summary/Plan Comment DC Time >30 min.: No Discharge Summary/Plan Comment: Discharge Diagnoses: T11 compression fracture L2 compression fracture Low back pain HTN Hx bradycardia Pacemaker near end of battery life Kristin was admitted due to low back pain secondary to new T11 and L2 compression fractures. She was treated with [place], Motrin and Flexeril along with physical therapy. Today she is doing much better and is able to ambulate with walker per self. She has some trouble with pain especially when moving from laying to sitting position in bed, but once up she reports she does well. She has denied wanting to go to SNF for short term rehab. Family is near and can help. They are also obtaining some helpers who can drive to her appointments during this time. She will also go home with Home Health, shelter is needed to monitor pain control with medications and PT would be beneficial to assist with back pain and exercises to improve muscle tone. She will be unable to leave the house due to pain and the assistance of a caregiver and assistive device to ambulate. Plan of care to be followed by Dr Rousseau, patients PCP. She will be sent home with pain medications Van Etten along with Motrin and Flexeril. She takes [place] and Flexeril sparingly because she doesn't enjoy them, but knows they do help with her pain and movement. She was encouraged to place heat or ice to low back for further pain relief as needed as well, leaving in place only for 20 minutes then to remove. PT also recommend warm and form back brace, since patient liked the gait belt and the support it provided. Patient is unsure if she wants this, but prescription was sent to [facility] and is available if she would like to pick this up. She will be discharge home today, with follow up arranged with Dr Rousseau in 1 week. She is to return to clinic or ED if concerns should arise. - General Info Date of Service: 05/17/17 Admission Dx/Problem (Free Text: Intractable pain secondary to Lumbar Compression fracture Subjective Update: DOing much better today. nervous to go home, but is ready for her own bed. Pain is very well controlled, hurts worse when moving from lying position to sitting. Once up she feels good. No numbness or weakness to legs and no incontinence noted. Denies chest pain or SOB. Functional Status: Reports: Pain Controlled, Tolerating Diet, Ambulating, Urinating - Review of Systems Pulmonary: Reports: No Symptoms. Denies: Shortness of Breath Cardiovascular: Reports: No Symptoms. Denies: Chest Pain, Palpitations, Edema Gastrointestinal: Reports: No Symptoms. Denies: Abdominal Pain, Nausea, Vomiting Genitourinary: Reports: No Symptoms. Denies: Dysuria, Frequency, Incontinence Musculoskeletal: Reports: Back Pain (low back pain, much improved since admission. ) - Patient Data Vitals - Most Recent: Last Vital Signs Temp 97.6 F 05/17/17 08:00 Pulse 64 05/17/17 09:40 Resp 18 05/17/17 08:00 BP 125/54 L 05/17/17 09:40 Pulse Ox 96 05/17/17 08:00 Weight - Most Recent: 65.771 kg I&O - Last 24 hours: Intake & Output 05/16/17 05/17/17 05/17/17 22:59 06:59 14:59 Intake Total 480 240 Output Total 500 1200 Balance -20 -960 JOAN Results - Last 24 hrs: Microbiology 05/14/17 20:55 Urine Culture - Final Urine, Clean Catch MIXED REEMA 10,000-100,000 CFU/ML Med Orders - Current: Current Medications Acetaminophen (Tylenol) 650 mg PO Q4H PRN PRN Reason: Pain (Mild 1-3)/fever Hydrocodone Bitart/Acetaminophen ([place] 325-5 Mg) 1 tab PO Q4H PRN PRN Reason: Pain (moderate 4-6) Last Admin: 05/16/17 20:43 Dose: 1 tab Aspirin (Halfprin) 81 mg PO DAILY [facility] Last Admin: 05/17/17 09:40 Dose: 81 mg Carvedilol (Coreg) 12.5 mg PO DAILY [facility] Last Admin: 05/17/17 09:40 Dose: 12.5 mg Cyclobenzaprine HCl (Flexeril) 5 mg PO Q8H PRN PRN Reason: Muscle Spasm Last Admin: 05/14/17 20:46 Dose: 5 mg Docusate Sodium (Colace) 100 mg PO BID [facility] Last Admin: 05/17/17 09:41 Dose: Not Given Heparin Sodium (Porcine) (Heparin Sodium) 5,000 units SUBCUT Q12H [facility] Last Admin: 05/17/17 00:00 Dose: 5,000 units Ibuprofen (Motrin) 400 mg PO Q6H PRN PRN Reason: back pain Last Admin: 05/16/17 18:20 Dose: 400 mg Losartan Potassium (Cozaar) 50 mg PO DAILY [facility] Last Admin: 05/17/17 09:40 Dose: 50 mg Morphine Sulfate (Morphine) 2 mg IVPUSH Q2H PRN PRN Reason: Pain (severe 7-10) Last Admin: 05/15/17 06:33 Dose: 2 mg Ondansetron HCl (Zofran Odt) 4 mg PO Q4H PRN PRN Reason: nausea, able to take PO Polyethylene Glycol (Miralax) 17 gm PO DAILY PRN PRN Reason: Constipation Spironolactone (Aldactone) 25 mg PO DAILY [facility] Last Admin: 05/17/17 09:40 Dose: 25 mg Temazepam (Restoril) 15 mg PO BEDTIME PRN PRN Reason: Sleep Discontinued Medications Cyclobenzaprine HCl (Flexeril) 5 mg PO TID PRN PRN Reason: Muscle Spasm Last Admin: 05/14/17 12:37 Dose: 5 mg Docusate Sodium (Colace) 100 mg PO BID PRN PRN Reason: Constipation Last Admin: 05/14/17 13:06 Dose: 100 mg Hydromorphone HCl (Dilaudid) 0.5 mg IVPUSH ONETIME ONE Stop: 05/14/17 10:03 Last Admin: 05/14/17 10:19 Dose: 0.5 mg Morphine Sulfate (Morphine) 2 mg IM ONETIME ONE Stop: 05/14/17 09:23 Last Admin: 05/14/17 09:28 Dose: 2 mg Ondansetron HCl (Zofran Odt) 4 mg PO ONETIME ONE Stop: 05/14/17 09:23 Last Admin: 05/14/17 09:28 Dose: 4 mg - Exam General: Reports: Alert, Oriented, Cooperative, No Acute Distress Neck: Reports: Supple Lungs: Reports: Clear to Auscultation, Normal Respiratory Effort Cardiovascular: Reports: Regular Rate, Regular Rhythm GI/Abdominal Exam: Normal Bowel Sounds, Soft, Non-Tender, No Organomegaly, No Distention, No Abnormal Bruit, No Mass, Pelvis Stable Back Exam: Reports: Normal Inspection, Full Range of Motion (pain is induced with movement, but improved. ) Extremities: Normal Inspection, Normal Range of Motion, Non-Tender, No Pedal Edema, Normal Capillary Refill Neurological: Reports: No New Focal Deficit Psy/Mental Status: Reports: Alert, Normal Affect, Normal Mood *Q Meaningful Use (DIS) - VTE *Q VTE Criteria *Q: - Stroke *Q Stroke Criteria *Q: - AMI *Q AMI Criteria *Q:
[2017-05-17] MEDS: Acetaminophen/HYDROcodone 325-5 MG Tab PO PRN (12:04)
[2017-05-17] MEDS: Heparin Sodium 5,000 Units/ML Vial SUBCUT SCH ×2 (12:05)
[2017-05-17 12:16] VITALS: BP 122/58
== END 2017-05-17 13:10 | disposition home health service (06) ==
LOC: MW.ED 08:59 → MW.MS 10:32
PROVIDERS: ADMIT Family Medicine; ATTEND Family Medicine
DX: M48.54XA Collapsed vertebra, not elsewhere classified, thoracic region, initial encounter for fracture (principal); M48.56XA Collapsed vertebra, not elsewhere classified, lumbar region, initial encounter for fracture; I10 Essential (primary) hypertension; Z95.0 Presence of cardiac pacemaker; Z86.79 Personal history of other diseases of the circulatory system; Z79.82 Long term (current) use of aspirin; Z79.899 Other long term (current) drug therapy
CPT/HCPCS: 36415; 80048; 80053; 81001; 83735; 84100; 85025; 87086; 96372; 96374; 96375; 96376; 97110; 97161; 97530; 99284; A9270; G0378; J1170; J1644; J2270

== ENCOUNTER 2017-06-30 12:09 | Emergency (ER) | payer MEDICARE, OTHER ==
--- NOTE | 2017-06-30 12:18 | EDM.PDOC ---
ED HPI GENERAL MEDICAL PROBLEM - General Chief Complaint: Back Pain or Injury Stated Complaint: BACK PAIN Time Seen by Provider: 06/30/17 12:18 Source of Information: Reports: Patient, EMS History Limitations: Reports: No Limitations - History of Present Illness INITIAL COMMENTS - FREE TEXT/NARRATIVE: HISTORY AND PHYSICAL: []86-year-old female presenting per EMS with back pain History of Present Illness: [Patient does have history of compression fractures T 11 and L2 History of hypertension and a pacemaker. Patient received 50 mics of fentanyl per EMS Review of Systems: As per history of present illness and below otherwise all systems reviewed and negative. Past medical history: As per history of present illness and as reviewed below otherwise noncontributory. Surgical history: As per history of present illness and as reviewed below otherwise noncontributory. Social history: No reported history of drug or alcohol abuse. Family history: As per history of present illness and as reviewed below otherwise noncontributory. Physical exam: Alert and oriented female answering questions appropriately in full sentences without any shortness of breath. She does have her back brace on HEENT: Atraumatic, normocehpalic, pupils reactive, negative for conjunctival pallor or scleral icterus, mucous membranes moist, throat clear, neck supple, nontender, trachea midline. Lungs: Clear to auscultation, breath sounds equal bilaterally, chest non tender. Heart: S1S2, regular, negative for clicks, rubs, or JVD. Abdomen: Soft, nondistended, nontender. Negative for masses or hepatossplenmegaly. Negative for costovertebral tenderness. Pelvis: Stable nontender. Genitourinary: Deferred. Rectal: Deferred Extremities: Atraumatic, negative for cords or calf pain. Neurovascular unremarkable. Neuro: Awake, alert, oriented. Cranial nerves II through XII unremarkable. Cerebellum unremarkable. Motor and sensory unremarkable throughout. Exam nonfocal. Diagnostics: [X-ray thoracic and lumbar spine] Therapeutics: [] Impression: [Back pain] Plan: [Discharged to home Prescription written for tramadol Follow-up with your primary care] Definitive disposition and diagnosis as appropriate pending reevaluation and review of above. Onset: Sudden Duration: Day(s): (2), Getting Worse Location: Reports: Back back Pain Score (Numeric/FACES): 4 - Related Data Allergies Allergy/AdvReac Type Severity Reaction Status Date / Time No Known Allergies Allergy Verified 06/30/17 12:15 Home Meds: Home Meds Aspirin [Adult Low Dose Aspirin EC] 81 mg PO DAILY 04/01/14 [History] Losartan Potassium [Cozaar] 50 mg PO DAILY 04/01/14 [History] Spironolactone [Aldactone] 25 mg PO DAILY 04/01/14 [History] Carvedilol [Coreg] 12.5 mg DAILY 05/11/17 [History] Vitamin E 400 unit PO DAILY 05/14/17 [History] Acetaminophen [Tylenol] 650 mg PO Q6H PRN #30 tablet 05/17/17 [Rx] Cyclobenzaprine [Flexeril] 5 mg PO BID PRN #15 tab 05/17/17 [Rx] Docusate Sodium [Colace] 100 mg PO DAILY #30 cap 05/17/17 [Rx] Hydrocodone/Acetaminophen [[place] 5-325 Tablet] 1 each PO Q6H PRN #20 tablet [Rx] Ibuprofen [Motrin] 400 mg PO QID PRN #30 tab 05/17/17 [Rx] Polyethylene Glycol 3350 [MiraLAX] 17 gm PO DAILY PRN packet 05/17/17 [Rx] Past Medical History HEENT History: Reports: Cataract Cardiovascular History: Reports: Heart Failure, Pacemaker Respiratory History: Reports: None Gastrointestinal History: Reports: None Genitourinary History: Reports: None 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: Musculoskeletal History: Reports: Arthritis Other Musculoskeletal History: back surgery, 20 yrs ago Neurological History: Reports: None Psychiatric History: Reports: None Endocrine/Metabolic History: Reports: None Hematologic History: Reports: None Immunologic History: Reports: None Oncologic (Cancer) History: Reports: None Dermatologic History: Reports: None - Infectious Disease History Infectious Disease History: Reports: Chicken Pox, Measles, Mumps, Rubella, Shingles - Past Surgical History HEENT Surgical History: Reports: Cataract Surgery Social & Family History - Family History Family Medical History: Noncontributory - Tobacco Use Smoking Status *Q: Never Smoker Second Hand Smoke Exposure: No - Caffeine Use Caffeine Use: Reports: None - Alcohol Use Days Per Week of Alcohol Use: 0 - Recreational Drug Use Recreational Drug Use: No ED ROS GENERAL - Review of Systems Review Of Systems: ROS reveals no pertinent complaints other than HPI. ED EXAM,LOWER BACK PAIN/INJURY - Physical Exam Exam: See Below (See dictation) Course - Vital Signs Last Recorded V/S: Last Vital Signs Temp 36.4 C 06/30/17 12:16 Pulse 107 H 06/30/17 12:16 Resp 18 06/30/17 12:16 BP 92/44 L 06/30/17 12:16 Pulse Ox 95 06/30/17 12:16 - Orders/Labs/Meds Orders: Active Orders 24 hr Category Date Time Status Lumbar Spine 2 or 3V [CR] Stat Exams 06/30/17 12:22 Taken Thoracic Spine 3V [CR] Stat Exams 06/30/17 12:21 Taken Departure - Departure Time of Disposition: 14:22 Disposition: Home, Self-Care 01 Condition: Good Clinical Impression: Back pain Qualifiers: Back pain location: low back pain Chronicity: chronic Back pain laterality: unspecified Sciatica presence: without sciatica Qualified Code(s): M54.5 - Low back pain; G89.29 - Other chronic pain; G89.29 - Other chronic pain - Discharge Information Instructions: Muscle Strain, [id number], Pain Medicine Instructions, Easy-to- Read, Chronic Back Pain Forms: ED Department Discharge Additional Instructions: The following information is given to patients seen in the emergency department who are being discharged to home. This information is to outline your options for follow-up care. We provide all patients seen in our emergency department with a follow-up referral. The need for follow-up, as well as the timing and circumstances, are variable depending upon the specifics of your emergency department visit. If you don't have a primary care physician on staff, we will provide you with a referral. We always advise you to contact your personal physician following an emergency department visit to inform them of the circumstance of the visit and for follow-up with them and/or the need for any referrals to a consulting specialist. The emergency department will also refer you to a specialist when appropriate. This referral assures that you have the opportunity for followup care with a specialist. All of these measure are taken in an effort to provide you with optimal care, which includes your followup. Under all circumstances we always encourage you to contact your private physician who remains a resource for coordinating your care. When calling for followup care, please make the office aware that this follow-up is from your recent emergency room visit. If for any reason you are refused follow-up, please contact the [facility] emergency department at and asked to speak to the emergency department charge nurse. If you've been found to have chronic back pain which she you have made worse by walking Have reviewed your prescription for tramadol Follow-up with your primary care provider next week - My Orders Last 24 Hours: My Active Orders 06/30/17 12:21 Thoracic Spine 3V [CR] Stat 06/30/17 12:22 Lumbar Spine 2 or 3V [CR] Stat - Assessment/Plan Last 24 Hours: My Active Orders 06/30/17 12:21 Thoracic Spine 3V [CR] Stat 06/30/17 12:22 Lumbar Spine 2 or 3V [CR] Stat
--- NOTE | 2017-06-30 14:23 | CR ---
EXAMINATION: Thoracic and lumbar spine HISTORY: Pain COMPARISON: Chest radiograph 09/21/2016. TECHNIQUE: AP and lateral views of the thoracic and lumbar spine FINDINGS: There is moderate thoracic kyphosis with wedge deformities noted within the mid and lower t horacic spine. Kyphoplasty changes demonstrated. Overall these appear unchanged from the prior radiog raph. Osseous structures appear osteopenic. Lungs are clear. Left-sided pacemaker is noted. Aorta is tortuous. Compression deformities also noted within the lumbar spine. There is a moderate compression deformity at L3 which appears more pronounced when compared to a CT dated 05/11/2017. There is possibly slightl y increased compression at L1 along the superior endplate as well. SI joints are symmetric. IMPRESSION: 1. Generalized osteopenia. 2. Moderate compression deformity at L3 which has increased in comparison to 05/11/2009. 3. Otherwise multiple stable thoracolumbar compression deformities.
[2017-06-30 14:33] VITALS: BP 98/31
== END 2017-06-30 15:09 | disposition home or self-care (01) ==
LOC: MW.ED 12:09
DX: M54.5 Low back pain (principal); G89.29 Other chronic pain; I11.0 Hypertensive heart disease with heart failure; I50.9 Heart failure, unspecified; Z95.0 Presence of cardiac pacemaker; Z79.82 Long term (current) use of aspirin; Z79.899 Other long term (current) drug therapy; Z98.890 Other specified postprocedural states
CPT/HCPCS: 72072; 72072-26; 72100; 72100-26; 99283; 99284

== ENCOUNTER 2017-07-04 11:37 | Inpatient (IN) | payer MEDICARE ==
[2017-07-04] MEDS ORDERED: Ketorolac 30 MG/ML SDV IVPUSH ONE (11:55)
--- NOTE | 2017-07-04 11:57 | EDM.PDOC ---
ED HPI GENERAL MEDICAL PROBLEM - General Chief Complaint: Back Pain or Injury Stated Complaint: BACK PAIN Time Seen by Provider: 07/04/17 11:40 Source of Information: Reports: Patient History Limitations: Reports: No Limitations - History of Present Illness INITIAL COMMENTS - FREE TEXT/NARRATIVE: History of present illness: []Patient was seen here or days ago and had x-ray showing worsening L3 compression fracture. Patient is here with back pain and constipation. She lives alone and does not want to drink because it is difficult to get up. Review of systems: As per history of present illness and below otherwise all systems reviewed and negative. Past medical history: As per history of present illness and as reviewed below otherwise noncontributory. Surgical history: As per history of present illness and as reviewed below otherwise noncontributory. Social history: No reported history of drug or alcohol abuse. Family history: As per history of present illness and as reviewed below otherwise noncontributory. Physical exam: General: Well developed, well nourished in NAD HEENT: Atraumatic, normocephalic, pupils reactive, negative for conjunctival pallor or scleral icterus, mucous membranes dry, throat clear, neck supple, nontender, trachea midline. Lungs: Clear to auscultation, breath sounds equal bilaterally, chest nontender. Heart: S1S2, regular, negative for clicks, rubs, or JVD. Abdomen: Soft, nondistended, nontender. Negative for masses or hepatosplenomegaly. Negative for costovertebral tenderness. Patient tender to palpation over upper mid lumbar vertebrae. Pelvis: Stable nontender. Genitourinary: Deferred. Rectal: Deferred. Extremities: Atraumatic, negative for cords or calf pain. Neurovascular unremarkable. Neuro: Awake, alert, oriented. Motor and sensory unremarkable throughout. Exam nonfocal. Diagnostics: []UA positive for ketones Therapeutics: []IV fluids given for hydration Toradol and Valium given for pain and spasm Impression: []L3 compression fracture, dehydration, constipation from hydrocodone Plan: []Admit for observation for hydration and pain control Definitive disposition and diagnosis as appropriate pending reevaluation and review of above. middle back Pain Score (Numeric/FACES): 10 - Related Data Allergies Allergy/AdvReac Type Severity Reaction Status Date / Time No Known Allergies Allergy Verified 07/04/17 11:50 Home Meds: Home Meds Aspirin [Adult Low Dose Aspirin EC] 81 mg PO DAILY 04/01/14 [History] Losartan Potassium [Cozaar] 50 mg PO DAILY 04/01/14 [History] Spironolactone [Aldactone] 25 mg PO DAILY 04/01/14 [History] Carvedilol [Coreg] 12.5 mg DAILY 05/11/17 [History] Vitamin E 400 unit PO DAILY 05/14/17 [History] Acetaminophen [Tylenol] 650 mg PO Q6H PRN #30 tablet 05/17/17 [Rx] Cyclobenzaprine [Flexeril] 5 mg PO BID PRN #15 tab 05/17/17 [Rx] Docusate Sodium [Colace] 100 mg PO DAILY #30 cap 05/17/17 [Rx] Hydrocodone/Acetaminophen [[place] 5-325 Tablet] 1 each PO Q6H PRN #20 tablet [Rx] Ibuprofen [Motrin] 400 mg PO QID PRN #30 tab 05/17/17 [Rx] Polyethylene Glycol 3350 [MiraLAX] 17 gm PO DAILY PRN packet 05/17/17 [Rx] Past Medical History HEENT History: Reports: Cataract Cardiovascular History: Reports: Heart Failure, Pacemaker Respiratory History: Reports: None Gastrointestinal History: Reports: None Genitourinary History: Reports: None 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: Musculoskeletal History: Reports: Arthritis Other Musculoskeletal History: back surgery, 20 yrs ago Neurological History: Reports: None Psychiatric History: Reports: None Endocrine/Metabolic History: Reports: None Hematologic History: Reports: None Immunologic History: Reports: None Oncologic (Cancer) History: Reports: None Dermatologic History: Reports: None - Infectious Disease History Infectious Disease History: Reports: Chicken Pox, Measles, Mumps, Rubella, Shingles - Past Surgical History HEENT Surgical History: Reports: Cataract Surgery Social & Family History - Family History Family Medical History: Noncontributory - Tobacco Use Smoking Status *Q: Never Smoker Second Hand Smoke Exposure: No - Caffeine Use Caffeine Use: Reports: None - Alcohol Use Days Per Week of Alcohol Use: 0 - Recreational Drug Use Recreational Drug Use: No ED ROS GENERAL - Review of Systems Review Of Systems: See Below (See history of present illness) ED EXAM,LOWER BACK PAIN/INJURY - Physical Exam Exam: See Below (See history of present illness) Course - Vital Signs Last Recorded V/S: Last Vital Signs Temp 98.1 F 07/04/17 12:46 Pulse 60 07/04/17 13:24 Resp 16 07/04/17 13:24 BP 101/41 L 07/04/17 13:24 Pulse Ox 99 07/04/17 13:24 - Orders/Labs/Meds Orders: Active Orders 24 hr Category Date Time Status Patient Status [ADT] Stat ADT 07/04/17 13:46 Active Labs: Laboratory Tests 07/04/17 Range/Units 13:00 Urine Color YELLOW Urine Appearance CLEAR Urine pH 5.0 (5.0-8.0) Ur Specific [place] 1.015 (1.001-1.035) Urine Protein NEGATIVE (NEGATIVE) mg/dL Urine Glucose (UA) NEGATIVE (NEGATIVE) mg/dL Urine Ketones 15 H (NEGATIVE) mg/dL Urine Occult Blood TRACE-INTACT (NEGATIVE) Urine Nitrite NEGATIVE (NEGATIVE) Urine Bilirubin NEGATIVE (NEGATIVE) Urine Urobilinogen 0.2 (<2.0) EU/dL Ur Leukocyte Esterase NEGATIVE (NEGATIVE) Urine RBC NONE SEEN (0-2/HPF) Urine WBC 0-1 (0-5/HPF) Ur Epithelial Cells RARE (NONE-FEW) Urine Bacteria RARE (NEGATIVE) Urine Mucus LIGHT (NONE-MOD) Meds: Medications Discontinued Medications Generic Name Dose Route Start Last Admin Trade Name Shayla PRN Reason Stop Dose Admin Diazepam 2.5 mg 07/04/17 11:55 07/04/17 12:06 Valium IV 07/04/17 11:56 2.5 mg ONETIME ONE Administration Lactated Ringer's 1,000 mls @ 999 mls/hr 07/04/17 12:59 07/04/17 13:00 Ringers, Lactated IV 07/04/17 13:59 999 mls/hr .BOLUS ONE Administration Ketorolac Tromethamine 15 mg 07/04/17 11:55 07/04/17 12:07 Toradol IVPUSH 07/04/17 11:56 15 mg ONETIME ONE Administration Ondansetron HCl 4 mg 07/04/17 13:11 07/04/17 13:23 Zofran IVPUSH 07/04/17 13:12 4 mg ONETIME ONE Administration Departure - Departure Time of Disposition: 14:07 Disposition: Refer to Observation Condition: Fair Clinical Impression: Dehydration Compression fracture of L3 lumbar vertebra Qualifiers: Encounter type: initial encounter Fracture type: closed Qualified Code(s): S32.030A - Wedge compression fracture of third lumbar vertebra, initial encounter for closed fracture - Discharge Information Forms: ED Department Discharge - My Orders Last 24 Hours: My Active Orders 07/04/17 13:46 Patient Status [ADT] Stat - Assessment/Plan Last 24 Hours: My Active Orders 07/04/17 13:46 Patient Status [ADT] Stat
[2017-07-04] MEDS ORDERED: Lactated Ringers 1,000 ML IV ONE (12:59)
[2017-07-04] MEDS ORDERED: Ondansetron 4 MG/2 ML SDV IVPUSH ONE (13:11)
[2017-07-04] MEDS ORDERED: Magnesium Citrate Solution 296 ML Bottle PO ONE (14:48)
[2017-07-04] MEDS ORDERED: LORazepam 0.5 MG Tab PO PRN (14:48)
[2017-07-04] MEDS ORDERED: Polyethylene Glycol 3350 Powder 17 GM Packet PO PRN (14:49)
[2017-07-04] MEDS ORDERED: Temazepam 15 MG Cap PO PRN (15:00)
[2017-07-04] MEDS ORDERED: Ondansetron 4 MG Tab.DIS PO PRN (15:00)
--- NOTE | 2017-07-04 15:09 | PCM.HP ---
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 She did not fall. She was diagnosed in our ED with L# 3 compression fracture. She lives at [place] and is unable to manage being there currently. She states no BM x over one week. She did not have any head injury. She still drives a car usually and most recently has been using a walker to assist in ambulation. middle back Pain Score (Numeric/FACES): 10 - Related Data Allergies/Adverse Reactions: Allergies Allergy/AdvReac Type Severity Reaction Status Date / Time No Known Allergies Allergy Verified 07/04/17 11:50 Home Medications: Home Meds Aspirin [Adult Low Dose Aspirin EC] 81 mg PO DAILY 04/01/14 [History] Losartan Potassium [Cozaar] 50 mg PO DAILY 04/01/14 [History] Spironolactone [Aldactone] 25 mg PO DAILY 04/01/14 [History] Carvedilol [Coreg] 12.5 mg DAILY 05/11/17 [History] Vitamin E 400 unit PO DAILY 05/14/17 [History] Acetaminophen [Tylenol] 650 mg PO Q6H PRN #30 tablet 05/17/17 [Rx] Cyclobenzaprine [Flexeril] 5 mg PO BID PRN #15 tab 05/17/17 [Rx] Docusate Sodium [Colace] 100 mg PO DAILY #30 cap 05/17/17 [Rx] Hydrocodone/Acetaminophen [[place] 5-325 Tablet] 1 each PO Q6H PRN #20 tablet [Rx] Ibuprofen [Motrin] 400 mg PO QID PRN #30 tab 05/17/17 [Rx] Polyethylene Glycol 3350 [MiraLAX] 17 gm PO DAILY PRN packet 05/17/17 [Rx] Past Medical History HEENT History: Reports: Cataract Cardiovascular History: Reports: Heart Failure, Pacemaker Respiratory History: Reports: None Gastrointestinal History: Reports: None Genitourinary History: Reports: None 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: Musculoskeletal History: Reports: Arthritis Other Musculoskeletal History: back surgery, 20 yrs ago Neurological History: Reports: None Psychiatric History: Reports: None Endocrine/Metabolic History: Reports: None Hematologic History: Reports: None Immunologic History: Reports: None Oncologic (Cancer) History: Reports: None Dermatologic History: Reports: None - Infectious Disease History Infectious Disease History: Reports: Chicken Pox, Measles, Mumps, Rubella, Shingles - Past Surgical History HEENT Surgical History: Reports: Cataract Surgery Cardiovascular Surgical History: Reports: Pacer Social & Family History - Family History Family Medical History: Noncontributory - Tobacco Use Smoking Status *Q: Never Smoker Second Hand Smoke Exposure: No - Caffeine Use Caffeine Use: Reports: None - Alcohol Use Days Per Week of Alcohol Use: 0 Date/Time of Last Drink Comment: rarely drinks wine. Her last serving of wine was about six months ago. - Recreational Drug Use Recreational Drug Use: No H&P Review of Systems - Review of Systems: Review Of Systems: See Below General: Denies: Fever, Chills HEENT: Denies: Sore Throat Pulmonary: Denies: Shortness of Breath, Cough, Sputum Cardiovascular: Denies: Chest Pain, Palpitations Gastrointestinal: Denies: Abdominal Pain, Black Stool, Bloody Stool, Hematemesis , Hematochezia, Melena Genitourinary: Denies: Dysuria, Hematuria Skin: Denies: Cyanosis Psychiatric: Denies: Confusion Neurological: Denies: Seizure Exam - Exam Exam: See Below - Vital Signs Vital Signs: Last Vital Signs Temp 98.1 F 07/04/17 12:46 Pulse 60 07/04/17 13:24 Resp 16 07/04/17 13:24 BP 101/41 L 07/04/17 13:24 Pulse Ox 99 07/04/17 13:24 Weight: 63.503 kg - Exam General: Alert, Oriented, Cooperative HEENT: Conjunctiva Clear, EOMI Neck: Supple, Trachea Midline Lungs: Clear to Auscultation, Normal Respiratory Effort Cardiovascular: Regular Rate, Regular Rhythm GI/Abdominal Exam: Soft, Non-Tender (Female) Exam: Deferred Back Exam: Other (moderate tenderness left paravertebral region at about T2-3 area) Extremities: No: Pedal Edema Neurological: Cranial Nerves Intact, Normal Speech Neuro Extensive - Mental Status: Normal Mood/Affect Psychiatric: No: Hallucinations - Patient Data Lab Results Last 24 hrs: Laboratory Results - last 24 hr 07/04/17 Range/Units 13:00 Urine Color YELLOW Urine Appearance CLEAR Urine pH 5.0 (5.0-8.0) Ur Specific [place] 1.015 (1.001-1.035) Urine Protein NEGATIVE (NEGATIVE) mg/dL Urine Glucose (UA) NEGATIVE (NEGATIVE) mg/dL Urine Ketones 15 H (NEGATIVE) mg/dL Urine Occult Blood TRACE-INTACT (NEGATIVE) Urine Nitrite NEGATIVE (NEGATIVE) Urine Bilirubin NEGATIVE (NEGATIVE) Urine Urobilinogen 0.2 (<2.0) EU/dL Ur Leukocyte Esterase NEGATIVE (NEGATIVE) Urine RBC NONE SEEN (0-2/HPF) Urine WBC 0-1 (0-5/HPF) Ur Epithelial Cells RARE (NONE-FEW) Urine Bacteria RARE (NEGATIVE) Urine Mucus LIGHT (NONE-MOD) *Q Meaningful Use (ADM) - VTE *Q VTE Criteria *Q: - Stroke *Q Stroke Criteria *Q: - AMI *Q AMI Criteria *Q: - Problem List (1) Compression fracture of L3 lumbar vertebra SNOMED Code(s): 274198828 ICD Code: S32.030A - WEDGE COMPRESSION FRACTURE OF THIRD LUMBAR VERTEBRA, INIT Status: Acute Qualifiers: Encounter type: initial encounter Fracture type: closed Qualified Code(s) : S32.030A - Wedge compression fracture of third lumbar vertebra, initial encounter for closed fracture Problem List Initiated/Reviewed/Updated: Yes Orders Last 24hrs: Active Orders 24 hr Category Date Time Status Patient Status [ADT] Stat ADT 07/04/17 13:46 Active Communication Order [RC] STAT Care 07/04/17 15:03 Ordered Oxygen Therapy [RC] PRN Care 07/04/17 14:44 Ordered Oxygen Therapy [RC] PRN Care 07/04/17 15:00 Ordered VTE/DVT Education [RC] PER UNIT ROUTINE Care 07/04/17 14:44 Ordered VTE/DVT Education [RC] PER UNIT ROUTINE Care 07/04/17 15:00 Ordered Vital Signs [RC] Q4H Care 07/04/17 14:44 Ordered Vital Signs [RC] Q4H Care 07/04/17 15:00 Ordered Consult to Physical Therapy [PT Evaluation and Cons 07/05/17 08:00 Active Treatment] [CONS] Stat Regular Diet [DIET] Diet 07/04/17 Dinner Ordered CBC WITH AUTO DIFF [HEME] Stat Lab 07/04/17 14:58 Ordered COMPREHENSIVE METABOLIC PN,CMP [CHEM] Stat Lab 07/04/17 14:58 Ordered MAGNESIUM [CHEM] Stat Lab 07/04/17 14:58 Ordered Acetaminophen [Tylenol] Med 07/04/17 14:44 Ordered 650 mg PO Q4H PRN Aspirin [Halfprin] Med 07/05/17 09:00 Ordered 81 mg PO DAILY Carvedilol [Coreg] Med 07/05/17 09:00 Ordered 12.5 mg PO DAILY Cyclobenzaprine [Flexeril] Med 07/04/17 14:49 Ordered 5 mg PO BID PRN Docusate Sodium [Colace] Med 07/04/17 15:00 Ordered 100 mg PO BID Heparin Sodium Med 07/04/17 14:45 Ordered 5,000 units SUBCUT Q8H Ibuprofen [Motrin] Med 07/04/17 14:49 Ordered 400 mg PO QID PRN LORazepam [Ativan] Med 07/04/17 14:48 Ordered 0.5 mg PO Q4H PRN Lactated Ringers @ 75 MLS/HR(1000ml) Med 07/04/17 15:15 Ordered Lactated Ringers [Ringers, Lactated] 1,000 ml IV ASDIRECTED Losartan [Cozaar] Med 07/05/17 09:00 Ordered 50 mg PO DAILY Morphine Med 07/04/17 14:44 Ordered 4 mg IVPUSH Q2H PRN Ondansetron [Zofran ODT] Med 07/04/17 15:00 Ordered 4 mg PO Q4H PRN Polyethylene Glycol 3350 [MiraLAX] Med 07/04/17 14:49 Ordered 17 gm PO DAILY PRN Spironolactone [Aldactone] Med 07/05/17 09:00 Ordered 25 mg PO DAILY Temazepam [Restoril] Med 07/04/17 15:00 Ordered 15 mg PO BEDTIME PRN Resuscitation Status Routine Resus Stat 07/04/17 14:44 Ordered Medication Orders Acetaminophen (Tylenol) 650 mg PO Q4H PRN PRN Reason: Pain (Mild 1-3)/fever Aspirin (Halfprin) 81 mg PO DAILY [facility] Carvedilol (Coreg) 12.5 mg PO DAILY [facility] Cyclobenzaprine HCl (Flexeril) 5 mg PO BID PRN PRN Reason: Muscle Spasm Docusate Sodium (Colace) 100 mg PO BID [facility] Heparin Sodium (Porcine) (Heparin Sodium) 5,000 units SUBCUT BID [facility] Lactated Ringer's (Ringers, Lactated) 1,000 mls @ 75 mls/hr IV ASDIRECTED [facility] Ibuprofen (Motrin) 400 mg PO QID PRN PRN Reason: Pain Lorazepam (Ativan) 0.5 mg PO Q4H PRN PRN Reason: Anxiety Losartan Potassium (Cozaar) 50 mg PO DAILY [facility] Morphine Sulfate (Morphine) 4 mg IVPUSH Q2H PRN PRN Reason: Pain (severe 7-10) Stop: 07/05/17 14:47 Ondansetron HCl (Zofran Odt) 4 mg PO Q4H PRN PRN Reason: nausea, able to take PO Polyethylene Glycol (Miralax) 17 gm PO DAILY PRN PRN Reason: Constipation Spironolactone (Aldactone) 25 mg PO DAILY [facility] Temazepam (Restoril) 15 mg PO BEDTIME PRN PRN Reason: Sleep Assessment/Plan Comment:: admit for pain control treate with Mg citrate see orders she is willing to consider [place] placement after acute care hospitalization for rehabilitation Vel Galindo MD
[2017-07-04] MEDS ORDERED: Lactated Ringers 1,000 ML IV SCH (15:15)
[2017-07-04] MEDS: Heparin Sodium 5,000 Units/ML Vial SUBCUT SCH ×2 (16:24→21:02)
[2017-07-04] MEDS: Docusate Sodium 100 MG Cap PO SCH ×2 (16:25→21:06)
[2017-07-04] MEDS: Morphine 4 MG/ML Syringe IVPUSH PRN ×2 (20:57→23:27)
[2017-07-04] MEDS ORDERED: Ibuprofen 400 MG Tab PO ONE (23:30)
[2017-07-04] MEDS: Ibuprofen 200 MG Tab PO PRN (23:39)
[2017-07-05] MEDS: Morphine 4 MG/ML Syringe IVPUSH PRN ×3 (02:42→12:47)
--- NOTE | 2017-07-05 09:05 | PCM.PN ---
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 Pain is worst on L side of lower back and shoots down L leg. Had multiple BMs overnight , she feels relieved with this. "I needed to be cleaned out." No chest pain or shortness of breath, and no calf tenderness. Functional Status: Reports: Pain Controlled, Tolerating Diet, Urinating - Review of Systems General: Reports: No Symptoms. Denies: Fever, Weakness, Fatigue HEENT: Reports: No Symptoms. Denies: Headaches, Sore Throat, Visual Changes Pulmonary: Reports: No Symptoms. Denies: Shortness of Breath, Cough, Sputum Cardiovascular: Reports: No Symptoms. Denies: Chest Pain, Palpitations, Edema Gastrointestinal: Reports: No Symptoms. Denies: Abdominal Pain, Constipation, Nausea, Vomiting Genitourinary: Reports: No Symptoms. Denies: Dysuria, Frequency, Burning Musculoskeletal: Reports: Back Pain (Mainly located to L side of lumbar spine and worse with movement.) Neurological: Reports: No Symptoms Psychiatric: Reports: No Symptoms - Patient Data Vitals - Most Recent: Last Vital Signs Temp 97.4 F 07/05/17 04:43 Pulse 60 07/05/17 04:43 Resp 14 07/05/17 04:43 BP 98/45 L 07/05/17 04:43 Pulse Ox 95 07/05/17 04:43 Weight - Most Recent: 63.503 kg I&O - Last 24 Hours: Intake & Output 07/04/17 07/05/17 07/05/17 22:59 06:59 14:59 Intake Total 1374 Output Total 850 Balance 524 Lab Results Last 24 Hours: Laboratory Results - last 24 hr 07/04/17 07/04/17 Range/Units 15:16 15:16 WBC 5.24 (4.0-11.0) K/uL RBC 3.37 L (4.30-5.90) M/uL Hgb 10.1 L (12.0-16.0) g/dL Hct 29.8 L (36.0-46.0) % MCV 88.4 (80.0-98.0) fL MCH 30.0 (27.0-32.0) pg MCHC 33.9 (31.0-37.0) g/dL RDW Std Deviation 42.3 (28.0-62.0) fl RDW Coeff of Sylwia 13 (11.0-15.0) % Plt Count 153 (150-400) K/uL MPV 10.50 (7.40-12.00) fL Neut % (Auto) 61.3 (48.0-80.0) % Lymph % (Auto) 22.3 (16.0-40.0) % [place] % (Auto) 14.9 (0.0-15.0) % Eos % (Auto) 1.3 (0.0-7.0) % Baso % (Auto) 0.2 (0.0-1.5) % Neut # (Auto) 3.2 (1.4-5.7) K/uL Lymph # (Auto) 1.2 (0.6-2.4) K/uL [place] # (Auto) 0.8 (0.0-0.8) K/uL Eos # (Auto) 0.1 (0.0-0.7) K/uL Baso # (Auto) 0.0 (0.0-0.1) K/uL Nucleated RBC % 0.0 /100WBC Nucleated RBCs # 0 K/uL Sodium 135 L (136-145) mmol/L Potassium 4.5 (3.5-5.1) mmol/L Chloride 100 (98-107) mmol/L Carbon Dioxide 26.1 (21.0-32.0) mmol/L BUN 16 (7.0-18.0) mg/dL Creatinine 0.9 (0.6-1.0) mg/dL Est Cr Clr Drug Dosing 42.02 mL/min Estimated GFR (MDRD) 59.1 ml/min Glucose 75 (74-106) mg/dL Calcium 8.6 (8.5-10.1) mg/dL Magnesium 1.1 L (1.5-2.0) mg/dL Total Bilirubin 0.5 (0.2-1.0) mg/dL AST 16 (15-37) IU/L ALT 14 (14-63) IU/L Alkaline Phosphatase 53 (46-116) U/L Total Protein 5.6 L (6.4-8.2) g/dL Albumin 2.9 L (3.4-5.0) g/dL Globulin 2.7 (2.0-3.5) g/dL Albumin/Globulin Ratio 1.1 L (1.3-2.8) Med Orders - Current: Current Medications Acetaminophen (Tylenol) 650 mg PO Q4H PRN PRN Reason: Pain (Mild 1-3)/fever Aspirin (Halfprin) 81 mg PO DAILY [facility] Carvedilol (Coreg) 12.5 mg PO DAILY [facility] Cyclobenzaprine HCl (Flexeril) 5 mg PO BID PRN PRN Reason: Muscle Spasm Docusate Sodium (Colace) 100 mg PO BID [facility] Last Admin: 07/04/17 21:06 Dose: 100 mg Heparin Sodium (Porcine) (Heparin Sodium) 5,000 units SUBCUT BID [facility] Last Admin: 07/04/17 21:02 Dose: 5,000 units Ibuprofen (Motrin) 400 mg PO QID PRN PRN Reason: Pain Last Admin: 07/04/17 23:39 Dose: 400 mg Lorazepam (Ativan) 0.5 mg PO Q4H PRN PRN Reason: Anxiety Losartan Potassium (Cozaar) 50 mg PO DAILY [facility] Morphine Sulfate (Morphine) 4 mg IVPUSH Q2H PRN PRN Reason: Pain (severe 7-10) Stop: 07/05/17 14:47 Last Admin: 07/05/17 02:42 Dose: 4 mg Ondansetron HCl (Zofran Odt) 4 mg PO Q4H PRN PRN Reason: nausea, able to take PO Polyethylene Glycol (Miralax) 17 gm PO DAILY PRN PRN Reason: Constipation Spironolactone (Aldactone) 25 mg PO DAILY [facility] Temazepam (Restoril) 15 mg PO BEDTIME PRN PRN Reason: Sleep Discontinued Medications Diazepam (Valium) 2.5 mg IV ONETIME ONE Stop: 07/04/17 11:56 Last Admin: 07/04/17 12:06 Dose: 2.5 mg Lactated Ringer's (Ringers, Lactated) 1,000 mls @ 999 mls/hr IV .BOLUS ONE Stop: 07/04/17 13:59 Last Admin: 07/04/17 13:00 Dose: 999 mls/hr Lactated Ringer's (Ringers, Lactated) 1,000 mls @ 75 mls/hr IV ASDIRECTED [facility] Last Admin: 07/04/17 16:37 Dose: 75 mls/hr Ketorolac Tromethamine (Toradol) 15 mg IVPUSH ONETIME ONE Stop: 07/04/17 11:56 Last Admin: 07/04/17 12:07 Dose: 15 mg Magnesium Citrate (Citrate Of Magnesia) 296 ml PO ONETIME ONE Stop: 07/04/17 14:49 Last Admin: 07/04/17 16:25 Dose: 296 ml Ondansetron HCl (Zofran) 4 mg IVPUSH ONETIME ONE Stop: 07/04/17 13:12 Last Admin: 07/04/17 13:23 Dose: 4 mg - Exam General: Alert, Oriented, Cooperative, No Acute Distress Lungs: Clear to Auscultation, Normal Respiratory Effort Cardiovascular: Regular Rate, Regular Rhythm GI/Abdominal Exam: Normal Bowel Sounds, Soft, Non-Tender, No Organomegaly, No Distention, No Abnormal Bruit, No Mass, Pelvis Stable Back Exam: Normal Inspection, Decreased Range of Motion (due to pain, readjust self in bed carefully and with whinces of pain noted. No pain to palpation of lumbar back or over spine. But reports the pain is mainly in L lumbar and shoots down L leg with movement. ) Extremities: Normal Inspection, Normal Range of Motion, Non-Tender, No Pedal Edema, Normal Capillary Refill Neurological: No New Focal Deficit, Strength Equal Bilateral Psy/Mental Status: Alert, Normal Affect, Normal Mood - Problem List & Annotations (1) Compression fracture of L3 lumbar vertebra SNOMED Code(s): 732766376 Code(s): S32.030A - WEDGE COMPRESSION FRACTURE OF THIRD LUMBAR VERTEBRA, INIT Status: Acute Current Visit: Yes Qualifiers: Encounter type: subsequent encounter Fracture type: closed (2) Intractable back pain SNOMED Code(s): 928787167 Code(s): M54.9 - DORSALGIA, UNSPECIFIED Status: Acute Priority: High Current Visit: No (3) Constipation SNOMED Code(s): 66693491 Code(s): K59.00 - CONSTIPATION, UNSPECIFIED Status: Acute Current Visit: Yes Qualifiers: Constipation type: slow transit constipation Qualified Code(s): K59.01 - Slow transit constipation (4) Hypertension SNOMED Code(s): 03936957 Code(s): I10 - ESSENTIAL (PRIMARY) HYPERTENSION Status: Chronic Priority : Low Current Visit: No Qualifiers: Hypertension type: unspecified Qualified Code(s): I10 - Essential (primary ) hypertension (5) Pacemaker SNOMED Code(s): 455332507 Code(s): Z95.0 - PRESENCE OF CARDIAC PACEMAKER Status: Chronic Current Visit: No - Problem List Review Problem List Initiated/Reviewed/Updated: Yes - Plan Plan:: This 86 year old female admitted with worsening of L3 compression fracture and intractable back pain 1. Intractable back pain: Xrays from ED show worsening of L3 compression fractures when compared to April 2017 imaging and last admission. Continue with Tylenol, Motrin, Morphine and Flexeril PRN for pain. PT to evaluate and consult today. Discussed with patient the likelyhood of needing short term rehabilitation at [place], which she is still reluctant to but is coming to realize she may need this. Upon review of clinic chart, will continue Calcitonin nasal spray started by Dr Rousseau at follow up beginning of May. 2. Constipation: Improved. Given Mag Citrate last night, had multiple BMs overnight, feeling better. Continue Bowel regimen. Colace and Miralax ordered. Appears euvolemic now, will discontinue IVFs and encourage PO fluid intake. 3. HTN: BP stable. BP normally runs between high 90s-110 SBP.Will monitor. VTE prophylaxis: heparin Dispo: 2-3 days pending improvement
[2017-07-05] MEDS: Losartan 50 MG Tab PO SCH (09:59)
[2017-07-05] MEDS: Docusate Sodium 100 MG Cap PO SCH ×2 (09:59→20:08)
[2017-07-05] MEDS: Aspirin 81 MG Tab.EC PO SCH (10:00)
[2017-07-05] MEDS: Spironolactone 25 MG Tab PO SCH (10:00)
[2017-07-05] MEDS: Carvedilol 12.5 MG Tab PO SCH (10:01)
[2017-07-05] MEDS: Heparin Sodium 5,000 Units/ML Vial SUBCUT SCH ×2 (10:01→20:08)
[2017-07-05] MEDS: Ibuprofen 200 MG Tab PO PRN ×2 (11:29→17:16)
[2017-07-05] MEDS ORDERED: Ibuprofen 400 MG Tab PO ONE ×2 (11:29→17:17)
[2017-07-05] MEDS: Cyclobenzaprine 5 MG Tab PO PRN ×2 (11:29→22:28)
[2017-07-05] MEDS: Calcitonin (Salmon) Nasal Spray 3.7 ML Bottle NAS SCH (11:49)
[2017-07-05] MEDS ORDERED: Magnesium Sulfate/Water 4 GM in Premix Bag 1 BAG IV ONE (19:26)
[2017-07-06] MEDS ORDERED: Ibuprofen 400 MG Tab PO ONE ×3 (01:33→16:53)
[2017-07-06] MEDS: Ibuprofen 200 MG Tab PO PRN (01:33)
[2017-07-06 05:51] LABS: CHLORIDE,CL 105 mmol/L (98-107); SODIUM,NA 140 mmol/L (136-145)
[2017-07-06] MEDS: Acetaminophen 325 MG Tab PO PRN ×3 (06:09→20:00)
--- NOTE | 2017-07-06 08:09 | PCM.PN ---
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 Back pain is better, ice helped a lot overnight. No chest pain or SOB. No abdominal pain or urinary symptoms. Eating and drinking well. Functional Status: Reports: Pain Controlled, Tolerating Diet, Ambulating, Urinating - Review of Systems General: Reports: No Symptoms HEENT: Reports: No Symptoms Pulmonary: Reports: No Symptoms. Denies: Shortness of Breath Cardiovascular: Reports: No Symptoms. Denies: Chest Pain Gastrointestinal: Reports: No Symptoms. Denies: Abdominal Pain, Nausea, Vomiting Genitourinary: Reports: No Symptoms. Denies: Dysuria, Frequency, Burning Musculoskeletal: Reports: Back Pain (L Lumbar spine, improving some.) Neurological: Reports: No Symptoms Psychiatric: Reports: No Symptoms - Patient Data Vitals - Most Recent: Last Vital Signs Temp 97.8 F 07/06/17 07:54 Pulse 64 07/06/17 07:54 Resp 16 07/06/17 07:54 BP 123/66 07/06/17 07:54 Pulse Ox 94 L 07/06/17 07:54 Weight - Most Recent: 63.503 kg I&O - Last 24 Hours: Intake & Output 07/05/17 07/06/17 07/06/17 22:59 06:59 14:59 Intake Total 240 450 Output Total 800 1600 Balance -560 -1150 Lab Results Last 24 Hours: Laboratory Results - last 24 hr 07/06/17 Range/Units 04:58 Sodium 140 (136-145) mmol/L Potassium 4.1 (3.5-5.1) mmol/L Chloride 105 (98-107) mmol/L Carbon Dioxide 29.5 (21.0-32.0) mmol/L BUN 10 (7.0-18.0) mg/dL Creatinine 0.7 (0.6-1.0) mg/dL Est Cr Clr Drug Dosing 54.02 mL/min Estimated GFR (MDRD) > 60.0 ml/min Glucose 88 (74-106) mg/dL Calcium 8.5 (8.5-10.1) mg/dL Magnesium 2.2 H (1.5-2.0) mg/dL Med Orders - Current: Current Medications Acetaminophen (Tylenol) 650 mg PO Q4H PRN PRN Reason: Pain (Mild 1-3)/fever Last Admin: 07/06/17 06:09 Dose: 650 mg Aspirin (Halfprin) 81 mg PO DAILY [facility] Last Admin: 07/05/17 10:00 Dose: 81 mg Calcitonin [place] (Miacalcin Nasal [place]) 0 ml TARSHA DAILY [facility] Last Admin: 07/05/17 11:49 Dose: 1 spray Carvedilol (Coreg) 12.5 mg PO DAILY [facility] Last Admin: 07/05/17 10:01 Dose: 12.5 mg Cyclobenzaprine HCl (Flexeril) 5 mg PO BID PRN PRN Reason: Muscle Spasm Last Admin: 07/05/17 22:28 Dose: 5 mg Docusate Sodium (Colace) 100 mg PO BID [facility] Last Admin: 07/05/17 20:08 Dose: Not Given Heparin Sodium (Porcine) (Heparin Sodium) 5,000 units SUBCUT BID [facility] Last Admin: 07/05/17 20:08 Dose: 5,000 units Ibuprofen (Motrin) 400 mg PO QID PRN PRN Reason: Pain Lorazepam (Ativan) 0.5 mg PO Q4H PRN PRN Reason: Anxiety Losartan Potassium (Cozaar) 50 mg PO DAILY [facility] Last Admin: 07/05/17 09:59 Dose: 50 mg Ondansetron HCl (Zofran Odt) 4 mg PO Q4H PRN PRN Reason: nausea, able to take PO Polyethylene Glycol (Miralax) 17 gm PO DAILY PRN PRN Reason: Constipation Spironolactone (Aldactone) 25 mg PO DAILY [facility] Last Admin: 07/05/17 10:00 Dose: 25 mg Temazepam (Restoril) 15 mg PO BEDTIME PRN PRN Reason: Sleep Discontinued Medications Diazepam (Valium) 2.5 mg IV ONETIME ONE Stop: 07/04/17 11:56 Last Admin: 07/04/17 12:06 Dose: 2.5 mg Lactated Ringer's (Ringers, Lactated) 1,000 mls @ 999 mls/hr IV .BOLUS ONE Stop: 07/04/17 13:59 Last Admin: 07/04/17 13:00 Dose: 999 mls/hr Lactated Ringer's (Ringers, Lactated) 1,000 mls @ 75 mls/hr IV ASDIRECTED SOCRATES Last Admin: 07/04/17 16:37 Dose: 75 mls/hr Magnesium Sulfate 4 gm/ Premix 100 mls @ 50 mls/hr IV ONETIME ONE Stop: 07/05/17 21:25 Last Admin: 07/05/17 20:05 Dose: 50 mls/hr Ibuprofen (Motrin) 400 mg PO QID PRN PRN Reason: Pain Last Admin: 07/06/17 01:33 Dose: 400 mg Ketorolac Tromethamine (Toradol) 15 mg IVPUSH ONETIME ONE Stop: 07/04/17 11:56 Last Admin: 07/04/17 12:07 Dose: 15 mg Magnesium Citrate (Citrate Of Magnesia) 296 ml PO ONETIME ONE Stop: 07/04/17 14:49 Last Admin: 07/04/17 16:25 Dose: 296 ml Morphine Sulfate (Morphine) 4 mg IVPUSH Q2H PRN PRN Reason: Pain (severe 7-10) Stop: 07/05/17 14:47 Last Admin: 07/05/17 12:47 Dose: 4 mg Ondansetron HCl (Zofran) 4 mg IVPUSH ONETIME ONE Stop: 07/04/17 13:12 Last Admin: 07/04/17 13:23 Dose: 4 mg - Exam General: Alert, Oriented, Cooperative, No Acute Distress Neck: Supple Lungs: Clear to Auscultation, Normal Respiratory Effort Cardiovascular: Regular Rate, Regular Rhythm GI/Abdominal Exam: Normal Bowel Sounds, Soft, Non-Tender, No Organomegaly, No Distention, No Abnormal Bruit, No Mass, Pelvis Stable Back Exam: Normal Inspection, Full Range of Motion (but at times limited with pain). No: Muscle Spasm Neurological: No New Focal Deficit Psy/Mental Status: Alert, Normal Affect, Normal Mood - Problem List & Annotations (1) Compression fracture of L3 lumbar vertebra SNOMED Code(s): 977859689 Code(s): S32.030A - WEDGE COMPRESSION FRACTURE OF THIRD LUMBAR VERTEBRA, INIT Status: Acute Current Visit: Yes Qualifiers: Encounter type: subsequent encounter Fracture type: closed (2) Intractable back pain SNOMED Code(s): 491048311 Code(s): M54.9 - DORSALGIA, UNSPECIFIED Status: Acute Priority: High Current Visit: No (3) Constipation SNOMED Code(s): 37431990 Code(s): K59.00 - CONSTIPATION, UNSPECIFIED Status: Acute Current Visit: Yes Qualifiers: Constipation type: slow transit constipation Qualified Code(s): K59.01 - Slow transit constipation (4) Hypertension SNOMED Code(s): 45722816 Code(s): I10 - ESSENTIAL (PRIMARY) HYPERTENSION Status: Chronic Priority : Low Current Visit: No Qualifiers: Hypertension type: unspecified Qualified Code(s): I10 - Essential (primary ) hypertension (5) Pacemaker SNOMED Code(s): 373641515 Code(s): Z95.0 - PRESENCE OF CARDIAC PACEMAKER Status: Chronic Current Visit: No - Problem List Review Problem List Initiated/Reviewed/Updated: Yes - My Orders Last 24 Hours: My Active Orders 07/05/17 09:15 Calcitonin (Vesta) [Miacalcin Nasal [place]] See Dose Instructions TARSHA DAILY - Plan Plan:: This 86 year old female admitted with worsening of L3 compression fracture and intractable back pain 1. Intractable back pain: Some improvement. Worked with PT only once yesterday. Encouraged to continue with PT so she is able to work on getting home and improving her pain. Continue with Tylenol, Motrin, Morphine and Flexeril PRN for pain. Plan for short term rehabilitation at [place]. Continue Calcitonin nasal spray. 2. Constipation: Improved. Continue Bowel regimen. Colace and Miralax ordered. AEncourage PO fluid intake. 3. HTN: BP stable. BP normally runs between high 90s-110 SBP.Will monitor. VTE prophylaxis: heparin Dispo: 2-3 days pending improvement, likely discharge to [facility] tomorrow.
[2017-07-06] MEDS: Aspirin 81 MG Tab.EC PO SCH (08:56)
[2017-07-06] MEDS: Docusate Sodium 100 MG Cap PO SCH ×2 (08:56→20:00)
[2017-07-06] MEDS: Carvedilol 12.5 MG Tab PO SCH (08:57)
[2017-07-06] MEDS: Losartan 50 MG Tab PO SCH (08:57)
[2017-07-06] MEDS: Spironolactone 25 MG Tab PO SCH (08:57)
[2017-07-06] MEDS: Heparin Sodium 5,000 Units/ML Vial SUBCUT SCH ×2 (08:58→20:00)
[2017-07-06] MEDS: Ibuprofen 400 MG Tab PO PRN ×2 (09:01→16:53)
[2017-07-06] MEDS: Calcitonin (Salmon) Nasal Spray 3.7 ML Bottle NAS SCH (09:32)
[2017-07-06] MEDS: Cyclobenzaprine 5 MG Tab PO PRN (11:12)
[2017-07-06] MEDS ORDERED: Acetaminophen/HYDROcodone 325-5 MG Tab PO PRN (20:19)
[2017-07-07] MEDS: Ibuprofen 400 MG Tab PO PRN ×2 (03:14→11:19)
[2017-07-07] MEDS ORDERED: Ibuprofen 400 MG Tab PO ONE ×2 (03:14→11:19)
--- NOTE | 2017-07-07 09:02 | PCM.DCSUM1 ---
Discharge Summary - Hospital Course Brief History: This 86 jennifer old female with pmh of HTN, bradycardia with a pacemaker, and recent back pain presented to the ED with onset of back pain last night. She did not fall. She was diagnosed in our ED with L3 compression fracture, which appeared to have worsened since last admission in April 2017. She lives at [place] and is unable to manage being there currently. She states no BM x over one week. She did not have any head injury. She still drives a car usually and most recently has been using a walker to assist in ambulation. She denies incontinence or falling at home. In the ED labwork WNL. She was given Toradol and Valium for back pain. She was admitted due to intractable back pain and difficulty with ambulation secondary to pain. PCP, Dr Rousseau - Discharge Data Discharge Date: 07/07/17 Discharge Disposition: DC/Tfer to [facility] 03 Condition: Good - Discharge Diagnosis/Problem(s) (1) Compression fracture of L3 lumbar vertebra SNOMED Code(s): 658891072 ICD Code: S32.030A - WEDGE COMPRESSION FRACTURE OF THIRD LUMBAR VERTEBRA, INIT Status: Acute Current Visit: Yes Qualifiers: Encounter type: subsequent encounter Fracture type: closed (2) Intractable back pain SNOMED Code(s): 536625469 ICD Code: M54.9 - DORSALGIA, UNSPECIFIED Status: Acute Priority: High Current Visit: No (3) Constipation SNOMED Code(s): 83060547 ICD Code: K59.00 - CONSTIPATION, UNSPECIFIED Status: Acute Current Visit : Yes Qualifiers: Constipation type: slow transit constipation Qualified Code(s): K59.01 - Slow transit constipation (4) Hypertension SNOMED Code(s): 30235008 ICD Code: I10 - ESSENTIAL (PRIMARY) HYPERTENSION Status: Chronic Priority : Low Current Visit: No Qualifiers: Hypertension type: unspecified Qualified Code(s): I10 - Essential (primary ) hypertension (5) Pacemaker SNOMED Code(s): 839221417 ICD Code: Z95.0 - PRESENCE OF CARDIAC PACEMAKER Status: Chronic Current Visit: No - Patient Instructions Diet: Heart Healthy Diet Activity: As Tolerated Showering/Bathing: May Shower Notify Provider of: Fever, Increased Pain, Swelling and Redness, Drainage, Nausea and/or Vomiting Other/Special Instructions: PT/OT to evaluate and treat for back pain - Discharge Plan Prescriptions/Med Rec: Acetaminophen/HYDROcodone [[place] 325-5 MG] 1 tab PO Q4H PRN #20 tablet PRN Reason: Pain Bisacodyl [Dulcolax] 10 mg RC DAILY PRN #10 supp PRN Reason: Constipation Calcitonin ([place]) [Miacalcin Nasal [place]] 1 spray TARSHA DAILY #1 bottle Cyclobenzaprine [Flexeril] 5 mg PO BID PRN #15 tab PRN Reason: Muscle Spasm Home Medications: Home Meds Aspirin [Adult Low Dose Aspirin EC] 81 mg PO DAILY 04/01/14 [History] Losartan Potassium [Cozaar] 50 mg PO DAILY 04/01/14 [History] Spironolactone [Aldactone] 25 mg PO DAILY 04/01/14 [History] Carvedilol [Coreg] 12.5 mg DAILY 05/11/17 [History] Vitamin E 400 unit PO DAILY 05/14/17 [History] Acetaminophen [Tylenol] 650 mg PO Q6H PRN #30 tablet 05/17/17 [Rx] Ibuprofen [Motrin] 400 mg PO QID PRN #30 tab 05/17/17 [Rx] Acetaminophen/HYDROcodone [[place] 325-5 MG] 1 tab PO Q4H PRN #20 tablet 07/07/17 [Rx] Bisacodyl [Dulcolax] 10 mg RC DAILY PRN #10 supp 07/07/17 [Rx] Calcitonin ([place]) [Miacalcin Nasal [place]] 1 spray TARSHA DAILY #1 bottle [Rx] Cyclobenzaprine [Flexeril] 5 mg PO BID PRN #15 tab 07/07/17 [Rx] Docusate Sodium [Colace] 100 mg PO BID #60 cap 07/07/17 [Rx] Polyethylene Glycol 3350 [MiraLAX] 17 gm PO DAILY #0 packet 07/07/17 [Rx] Patient Handouts: Acetaminophen; Hydrocodone tablets or capsules, Calcitonin nasal spray, Spinal Compression Fracture Referrals: Chema Silverman MD [Physician] - - Discharge Summary/Plan Comment DC Time >30 min.: No Discharge Summary/Plan Comment: Discharge Diagnoses: Back pain secondary to L3 compression fx HTN Constipation risk with opioids Hx bradycardia Pacemaker [place] was admitted and treated for intractable back pain with Morphine initially , then transitioned to Tyelnol, Motrin and [place] along with occassional Flexeril for muscle spasms. Calcitonin nasally continued as well. PT was consulted for evaluation and treatment. It was felt due to pain and at times inability to transfer safely due to pain she should be transitioned to [facility] for short term rehabilitation and pain control. Kristin continues to be very reluctant about going to [facility], but it was expressed to her that her safety at home is a concern, especially since she lives alone. She was encouraged she may only need a couple weeks of rehab with the goal of then returning Home. She has remained medically stable and is ready for transfer to [facility] today. Her case was discussed with Dr Silverman, who will assume care upon transfer to [facility]. I will notify her PCP Dr Rousseau of transfer. She will be transferred to [facility] today. She was encouraged to return to ED or clinic if concerns should arise. 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 Denies: Pain Controlled (not at this moment, but improving after laying down.) - Review of Systems General: Reports: Malaise. Denies: Fever, Weakness Pulmonary: Reports: No Symptoms. Denies: Shortness of Breath Cardiovascular: Reports: No Symptoms. Denies: Chest Pain, Edema, Lightheadedness Gastrointestinal: Reports: No Symptoms. Denies: Abdominal Pain, Nausea, Vomiting Genitourinary: Reports: No Symptoms. Denies: Dysuria, Frequency, Burning Musculoskeletal: Reports: No Symptoms, Back Pain (lumbar back pain, mainly to L side) Neurological: Reports: No Symptoms Psychiatric: Reports: No Symptoms - Patient Data Vitals - Most Recent: Last Vital Signs Temp 98.1 F 07/07/17 08:00 Pulse 63 07/07/17 08:00 Resp 16 07/07/17 08:00 BP 127/63 07/07/17 08:00 Pulse Ox 95 07/07/17 08:00 Weight - Most Recent: 63.503 kg I&O - Last 24 hours: Intake & Output 07/06/17 07/07/17 07/07/17 22:59 06:59 14:59 Intake Total 1140 Output Total 400 Balance 740 Med Orders - Current: Current Medications Acetaminophen (Tylenol) 650 mg PO Q4H PRN PRN Reason: Pain (Mild 1-3)/fever Last Admin: 07/06/17 20:00 Dose: 650 mg Hydrocodone Bitart/Acetaminophen ([place] 325-5 Mg) 1 tab PO Q3H PRN PRN Reason: Pain Last Admin: 07/07/17 07:37 Dose: 1 tab Aspirin (Halfprin) 81 mg PO DAILY [facility] Last Admin: 07/06/17 08:56 Dose: 81 mg Calcitonin [place] (Miacalcin Nasal [place]) 0 ml TARSHA DAILY [facility] Last Admin: 07/06/17 09:32 Dose: 1 spray Carvedilol (Coreg) 12.5 mg PO DAILY [facility] Last Admin: 07/06/17 08:57 Dose: 12.5 mg Cyclobenzaprine HCl (Flexeril) 5 mg PO BID PRN PRN Reason: Muscle Spasm Last Admin: 07/06/17 11:12 Dose: 5 mg Docusate Sodium (Colace) 100 mg PO BID [facility] Last Admin: 07/06/17 20:00 Dose: 100 mg Heparin Sodium (Porcine) (Heparin Sodium) 5,000 units SUBCUT BID [facility] Last Admin: 07/06/17 20:00 Dose: 5,000 units Ibuprofen (Motrin) 400 mg PO QID PRN PRN Reason: Pain Last Admin: 07/07/17 03:14 Dose: 400 mg Lorazepam (Ativan) 0.5 mg PO Q4H PRN PRN Reason: Anxiety Losartan Potassium (Cozaar) 50 mg PO DAILY [facility] Last Admin: 07/06/17 08:57 Dose: 50 mg Ondansetron HCl (Zofran Odt) 4 mg PO Q4H PRN PRN Reason: nausea, able to take PO Polyethylene Glycol (Miralax) 17 gm PO DAILY PRN PRN Reason: Constipation Spironolactone (Aldactone) 25 mg PO DAILY [facility] Last Admin: 07/06/17 08:57 Dose: 25 mg Temazepam (Restoril) 15 mg PO BEDTIME PRN PRN Reason: Sleep Discontinued Medications Diazepam (Valium) 2.5 mg IV ONETIME ONE Stop: 03/13/18 11:56 Last Admin: 07/04/17 12:06 Dose: 2.5 mg Lactated Ringer's (Ringers, Lactated) 1,000 mls @ 999 mls/hr IV .BOLUS ONE Stop: 07/04/17 13:59 Last Admin: 07/04/17 13:00 Dose: 999 mls/hr Lactated Ringer's (Ringers, Lactated) 1,000 mls @ 75 mls/hr IV ASDIRECTED SOCRATES Last Admin: 07/04/17 16:37 Dose: 75 mls/hr Magnesium Sulfate 4 gm/ Premix 100 mls @ 50 mls/hr IV ONETIME ONE Stop: 07/05/17 21:25 Last Admin: 07/05/17 20:05 Dose: 50 mls/hr Ibuprofen (Motrin) 400 mg PO QID PRN PRN Reason: Pain Last Admin: 07/06/17 01:33 Dose: 400 mg Ketorolac Tromethamine (Toradol) 15 mg IVPUSH ONETIME ONE Stop: 07/04/17 11:56 Last Admin: 07/04/17 12:07 Dose: 15 mg Magnesium Citrate (Citrate Of Magnesia) 296 ml PO ONETIME ONE Stop: 07/04/17 14:49 Last Admin: 07/04/17 16:25 Dose: 296 ml Morphine Sulfate (Morphine) 4 mg IVPUSH Q2H PRN PRN Reason: Pain (severe 7-10) Stop: 07/05/17 14:47 Last Admin: 07/05/17 12:47 Dose: 4 mg Ondansetron HCl (Zofran) 4 mg IVPUSH ONETIME ONE Stop: 07/04/17 13:12 Last Admin: 07/04/17 13:23 Dose: 4 mg - Exam General: Reports: Alert, Oriented, Cooperative, No Acute Distress Lungs: Reports: Clear to Auscultation, Normal Respiratory Effort Cardiovascular: Reports: Regular Rate, Regular Rhythm GI/Abdominal Exam: Normal Bowel Sounds, Soft, Non-Tender, No Organomegaly, No Distention, No Abnormal Bruit, No Mass, Pelvis Stable Back Exam: Reports: Normal Inspection, Decreased Range of Motion (limited with pain, but able to move fully through pain.). Denies: CVA Tenderness (L), CVA Tenderness (R) Extremities: Normal Inspection, Normal Range of Motion, Non-Tender, No Pedal Edema, Normal Capillary Refill Skin: Reports: Warm, Dry Neurological: Reports: No New Focal Deficit Psy/Mental Status: Reports: Alert, Normal Affect, Normal Mood *Q Meaningful Use (DIS) - VTE *Q VTE Criteria *Q: - Stroke *Q Stroke Criteria *Q: - AMI *Q AMI Criteria *Q:
[2017-07-07] MEDS: Heparin Sodium 5,000 Units/ML Vial SUBCUT SCH (10:25)
[2017-07-07] MEDS: Losartan 50 MG Tab PO SCH (10:25)
[2017-07-07] MEDS: Carvedilol 12.5 MG Tab PO SCH (10:25)
[2017-07-07] MEDS: Cyclobenzaprine 5 MG Tab PO PRN (10:25)
[2017-07-07] MEDS: Aspirin 81 MG Tab.EC PO SCH (10:26)
[2017-07-07] MEDS: Spironolactone 25 MG Tab PO SCH (10:26)
[2017-07-07] MEDS: Docusate Sodium 100 MG Cap PO SCH (10:26)
[2017-07-07 10:27] VITALS: BP 141/65
[2017-07-07] MEDS: Calcitonin (Salmon) Nasal Spray 3.7 ML Bottle NAS SCH (10:29)
== END 2017-07-07 11:20 | DRG 552 ==
LOC: MW.ED 11:37 → MW.MS 15:00 → OBSVTOIN 15:00 → MW.MS 15:15
PROVIDERS: ADMIT Family Medicine; ATTEND Family Medicine
DX: S32.030A Wedge compression fracture of third lumbar vertebra, initial encounter for closed fracture (principal); E86.0 Dehydration; I50.9 Heart failure, unspecified; M54.9 Dorsalgia, unspecified; K59.01 Slow transit constipation; I10 Essential (primary) hypertension; Z95.0 Presence of cardiac pacemaker; R00.1 Bradycardia, unspecified; Z79.899 Other long term (current) drug therapy
CPT/HCPCS: 36415; 81001; 96365; 96375; 99285; A9270; J1885; J2405; J7120; 80048; 80053; 83735; 85025; 97110-GP; 97161-GP; 97530-GP; 99283; J1644; J2270; J3475

== ENCOUNTER 2017-09-27 08:59 | Inpatient (IN) | payer MEDICARE, OTHER ==
[2017-09-27] MEDS ORDERED: Morphine 2 MG/ML Syringe IVPUSH ONE (09:25)
[2017-09-27] MEDS ORDERED: Ondansetron 4 MG/2 ML SDV IVPUSH ONE (09:25)
[2017-09-27] MEDS ORDERED: Sodium Chloride 0.9% 10 ML Syringe FLUSH PRN (09:26)
[2017-09-27] MEDS ORDERED: Sodium Chloride 0.9% 2.5 ML Syringe FLUSH PRN (09:26)
--- NOTE | 2017-09-27 09:29 | EDM.PDOC ---
ED HPI GENERAL MEDICAL PROBLEM - General Chief Complaint: Lower Extremity Injury/Pain Stated Complaint: AMB Time Seen by Provider: 09/27/17 09:22 - History of Present Illness INITIAL COMMENTS - FREE TEXT/NARRATIVE: HISTORY AND PHYSICAL: History of present illness: Patient is an 86-year-old female history of vertebral body compression fractures who presents with concern of low back and right hip pain she is in an assisted living setting right now and states she has difficulty ambulating due to this discomfort she denies fall or trauma or other concern she denies abdominal pain nausea vomiting fever chills or urinary symptoms. Review of systems: As per history of present illness and below otherwise all systems reviewed and negative. Past medical history: As per history of present illness and as reviewed below otherwise noncontributory. Surgical history: As per history of present illness and as reviewed below otherwise noncontributory. Social history: No reported history of drug or alcohol abuse. Family history: As per history of present illness and as reviewed below otherwise noncontributory. Physical exam: HEENT: Atraumatic, normocephalic, pupils reactive, negative for conjunctival pallor or scleral icterus, mucous membranes moist, throat clear, neck supple, nontender, trachea midline. Lungs: Clear to auscultation, breath sounds equal bilaterally, chest nontender. Heart: S1S2, regular, negative for clicks, rubs, or JVD. Abdomen: Soft, nondistended, nontender. Negative for masses or hepatosplenomegaly. Negative for costovertebral tenderness. Pelvis: Stable nontender. Genitourinary: Deferred. Rectal: Deferred. Extremities: Right hip is without demonstrable localized pain she's got some discomfort with range of motion is no shortening or rotation CMS neurovascular exam is unremarkable Neuro: Awake, alert, follows commands moves all extremities is limited but grossly nonfocal exam Diagnostics: CBC CMP PT/INR UA urine culture chest x-ray CT lumbar spine CT abdomen and pelvis Therapeutics: Saline at 125 mL an hour morphine sulfate 2 mg IV Zofran for millirems Impression: #1 history of vertebral compression fracture #2 low back pain #3 right hip pain Definitive disposition and diagnosis as appropriate pending reevaluation and review of above. - Related Data Allergies Allergy/AdvReac Type Severity Reaction Status Date / Time No Known Allergies Allergy Verified 07/04/17 11:50 Home Meds: Home Meds Aspirin [Adult Low Dose Aspirin EC] 81 mg PO DAILY 04/01/14 [History] Losartan Potassium [Cozaar] 50 mg PO DAILY 04/01/14 [History] Spironolactone [Aldactone] 25 mg PO DAILY 04/01/14 [History] Carvedilol [Coreg] 12.5 mg DAILY 05/11/17 [History] Vitamin E 400 unit PO DAILY 05/14/17 [History] Acetaminophen [Tylenol] 650 mg PO Q6H PRN #30 tablet 05/17/17 [Rx] Ibuprofen [Motrin] 400 mg PO QID PRN #30 tab 05/17/17 [Rx] Acetaminophen/HYDROcodone [Alexander 325-5 MG] 1 tab PO Q4H PRN #20 tablet 07/07/17 [Rx] Bisacodyl [Dulcolax] 10 mg RC DAILY PRN #10 supp 07/07/17 [Rx] Calcitonin ([place]) [Miacalcin Nasal [place]] 1 spray TARSHA DAILY #1 bottle [Rx] Cyclobenzaprine [Flexeril] 5 mg PO BID PRN #15 tab 07/07/17 [Rx] Docusate Sodium [Colace] 100 mg PO BID #60 cap 07/07/17 [Rx] Polyethylene Glycol 3350 [MiraLAX] 17 gm PO DAILY #0 packet 07/07/17 [Rx] Past Medical History HEENT History: Reports: Cataract Cardiovascular History: Reports: Arrhythmia, Heart Failure, Pacemaker Respiratory History: Reports: None Gastrointestinal History: Reports: None Genitourinary History: Reports: None [employer] 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: Musculoskeletal History: Reports: Arthritis Other Musculoskeletal History: back surgery, 20 yrs ago Neurological History: Reports: None Psychiatric History: Reports: None Endocrine/Metabolic History: Reports: None Hematologic History: Reports: None Immunologic History: Reports: None Oncologic (Cancer) History: Reports: None Dermatologic History: Reports: None - Infectious Disease History Infectious Disease History: Reports: Chicken Pox, Measles, Mumps, Rubella, Shingles - Past Surgical History HEENT Surgical History: Reports: Cataract Surgery Cardiovascular Surgical History: Reports: Pacer Social & Family History - Family History Family Medical History: Noncontributory - Tobacco Use Smoking Status *Q: Never Smoker - Caffeine Use Caffeine Use: Reports: None - Recreational Drug Use Recreational Drug Use: No Review of Systems - Review of Systems Review Of Systems: ROS reveals no pertinent complaints other than HPI. ED EXAM, GENERAL - Physical Exam Exam: See Below (The dictation) Course - Vital Signs Text/Narrative:: Patient's ED course has been unremarkable CT demonstrated L1-L2 and L3 compression fractures there was noted be some small bilateral pleural effusions and suggestion of a possible hydropic gallbladder consideration of a calculus cholecystitis was discussed with radiology and general surgery patient will be admitted as observation with dehydration rule out cholecystitis and bilateral pleural effusions. I discussed case with admitting physician. Last Recorded V/S: Last Vital Signs Temp 36.6 C 09/27/17 09:18 Pulse 65 09/27/17 09:18 Resp 18 09/27/17 09:18 BP 97/60 09/27/17 09:18 Pulse Ox 94 L 09/27/17 09:18 - Orders/Labs/Meds Orders: Active Orders 24 hr Category Date Time Status EKG Documentation Completion [RC] STAT Care 09/27/17 09:24 Active CULTURE URINE [RM] Stat Lab 09/27/17 09:25 Ordered UA W/MICROSCOPIC [URIN] Stat Lab 09/27/17 09:25 Ordered Sodium Chloride 0.9% [Normal Saline] 1,000 ml Med 09/27/17 09:30 Active IV STAT Sodium Chloride 0.9% [Saline Flush] Med 09/27/17 09:26 Active 10 ml FLUSH ASDIRECTED PRN Sodium Chloride 0.9% [Saline Flush] Med 09/27/17 09:26 Active 2.5 ml FLUSH ASDIRECTED PRN Saline Lock Insert [OM.PC] Stat Oth 09/27/17 09:24 Ordered Medication Orders Sodium Chloride (Normal Saline) 1,000 mls @ 125 mls/hr IV STAT SOCRATES Last Admin: 09/27/17 10:13 Dose: 125 mls/hr Sodium Chloride (Saline Flush) 10 ml FLUSH ASDIRECTED PRN PRN Reason: Keep Vein Open Sodium Chloride (Saline Flush) 2.5 ml FLUSH ASDIRECTED PRN PRN Reason: Keep Vein Open Labs: Laboratory Tests 09/27/17 09/27/17 09/27/17 Range/Units 09:35 09:35 09:35 WBC 4.94 (4.0-11.0) K/uL RBC 3.15 L (4.30-5.90) M/uL Hgb 9.7 L (12.0-16.0) g/dL Hct 28.8 L (36.0-46.0) % MCV 91.4 (80.0-98.0) fL MCH 30.8 (27.0-32.0) pg MCHC 33.7 (31.0-37.0) g/dL RDW Std Deviation 50.6 (28.0-62.0) fl RDW Coeff of Sylwia 15 (11.0-15.0) % Plt Count 177 (150-400) K/uL MPV 10.70 (7.40-12.00) fL Neut % (Auto) 68.5 (48.0-80.0) % Lymph % (Auto) 20.0 (16.0-40.0) % Amelia % (Auto) 10.3 (0.0-15.0) % Eos % (Auto) 1.0 (0.0-7.0) % Baso % (Auto) 0.2 (0.0-1.5) % Neut # (Auto) 3.4 (1.4-5.7) K/uL Lymph # (Auto) 1.0 (0.6-2.4) K/uL Amelia # (Auto) 0.5 (0.0-0.8) K/uL Eos # (Auto) 0.1 (0.0-0.7) K/uL Baso # (Auto) 0.0 (0.0-0.1) K/uL Nucleated RBC % 0.0 /100WBC Nucleated RBCs # 0 K/uL INR 1.12 Sodium 138 (136-145) mmol/L Potassium 3.5 (3.5-5.1) mmol/L Chloride 105 (98-107) mmol/L Carbon Dioxide 17.1 L (21.0-32.0) mmol/L BUN 36 H (7.0-18.0) mg/dL Creatinine 1.9 H (0.6-1.0) mg/dL Est Cr Clr Drug Dosing TNP Estimated GFR (MDRD) 24.9 ml/min Glucose 98 (74-106) mg/dL Calcium 8.5 (8.5-10.1) mg/dL Total Bilirubin 0.7 (0.2-1.0) mg/dL AST 21 (15-37) IU/L ALT 37 (14-63) IU/L Alkaline Phosphatase 73 (46-116) U/L Total Protein 5.6 L (6.4-8.2) g/dL Albumin 3.1 L (3.4-5.0) g/dL Globulin 2.5 (2.0-3.5) g/dL Albumin/Globulin Ratio 1.2 L (1.3-2.8) Meds: Medications Generic Name Dose Route Start Last Admin Trade Name Freq PRN Reason Stop Dose Admin Sodium Chloride 1,000 mls @ 125 mls/hr 09/27/17 09:30 09/27/17 10:13 Normal Saline IV 125 mls/hr STAT SOCRATES Administration Sodium Chloride 10 ml 09/27/17 09:26 Saline Flush FLUSH ASDIRECTED PRN Keep Vein Open Sodium Chloride 2.5 ml 09/27/17 09:26 Saline Flush FLUSH ASDIRECTED PRN Keep Vein Open Discontinued Medications Generic Name Dose Route Start Last Admin Trade Name Jossq PRN Reason Stop Dose Admin Morphine Sulfate 2 mg 09/27/17 09:25 09/27/17 10:13 Morphine IVPUSH 09/27/17 09:26 2 mg ONETIME ONE Administration Ondansetron HCl 4 mg 09/27/17 09:25 09/27/17 10:13 Zofran IVPUSH 09/27/17 09:26 4 mg ONETIME ONE Administration Departure - Departure Time of Disposition: 11:42 Disposition: Refer to Observation Condition: Good Clinical Impression: Dehydration, Lumbar compression fracture, Pleural effusion, Abnormal CAT scan - Discharge Information Forms: ED Department Discharge - My Orders Last 24 Hours: My Active Orders 09/27/17 09:24 EKG Documentation Completion [RC] STAT Saline Lock Insert [OM.PC] Stat 09/27/17 09:25 CULTURE URINE [RM] Stat UA W/MICROSCOPIC [URIN] Stat 09/27/17 09:26 Sodium Chloride 0.9% [Saline Flush] 10 ml FLUSH ASDIRECTED PRN Sodium Chloride 0.9% [Saline Flush] 2.5 ml FLUSH ASDIRECTED PRN 09/27/17 09:30 Sodium Chloride 0.9% [Normal Saline] 1,000 ml IV STAT - Assessment/Plan Last 24 Hours: My Active Orders 09/27/17 09:24 EKG Documentation Completion [RC] STAT Saline Lock Insert [OM.PC] Stat 09/27/17 09:25 CULTURE URINE [RM] Stat UA W/MICROSCOPIC [URIN] Stat 09/27/17 09:26 Sodium Chloride 0.9% [Saline Flush] 10 ml FLUSH ASDIRECTED PRN Sodium Chloride 0.9% [Saline Flush] 2.5 ml FLUSH ASDIRECTED PRN 09/27/17 09:30 Sodium Chloride 0.9% [Normal Saline] 1,000 ml IV STAT
[2017-09-27] MEDS ORDERED: Sodium Chloride 0.9% 1,000 ML IV SCH ×2 (09:30→12:30)
[2017-09-27 10:14] LABS: CHLORIDE,CL 105 mmol/L (98-107); SODIUM,NA 138 mmol/L (136-145)
--- NOTE | 2017-09-27 11:12 | CT ---
CT scan of the abdomen and pelvis Clinical history: Pain Comparison: No recent exams. Ultrasound of the kidneys dated November 03, 2014. Findings: There are bilateral moderately large pleural effusions and there is cardiomegaly with a car diac pacer in place. No pericardial effusion. Scanning through the abdomen reveals a homogeneous liver normal spleen and normal size nonobstructed kidneys. There is a hydropic gallbladder. This is suggestive of possible a calculus cholecystitis. Co nsider ultrasound. Scanning through the low abdomen to the pelvis demonstrates a small amount of pelv ic peritoneal fluid behind the bladder and a small amount of perineal fluid along the posterior right gutter. Etiology for this is indeterminate, but it could be related to the gallbladder. Calcified ph leboliths and vascular calcifications in the pelvis are noted. Osseous structures demonstrate multiple compression fractures of the lumbar spine L1-L2 and L3 levels . No abnormalities of the bony pelvis detected. Impression: Bilateral pleural effusions. Hydropic gallbladder suggesting possible acalculus cholecyst itis. Small amount of pelvic peritoneal fluid and fluid along the right paracolic cutter, possibly re lated to the gallbladder
--- NOTE | 2017-09-27 11:17 | CT ---
CT scan of the lumbar spine Clinical history: Pain rating toward right groin Comparison: None Findings: Multiple computed images demonstrate a severely osteopenic spine with compression deformiti es at T11 L1 and L2 and L3 levels compatible with benign osteopenic compressions. There is ossific de nsity material in the disc space at L5-S1 possibly postsurgical from lung ago antecedent techniques. There is no spondylolysis or spondylolisthesis or destructive process identified. No lumbar spinal ca nal compromise. Impression: Multiple benign compression deformities without central canal compromise
--- NOTE | 2017-09-27 11:19 | CR ---
Single view chest x-ray Clinical history: Chest pain and shortness of breath Comparison: May 11, 2017 Findings: Cardiac pacer is in good position as before. There is stable moderate cardiomegaly with no evolving acute pneumonia or failure. Impression: Stable cardiomegaly without acute pneumonia or failure
--- NOTE | 2017-09-27 12:14 | PCM.HP ---
H&P History of Present Illness - General Date of Service: 09/27/17 Admit Problem/Dx: Admission Diagnosis/Problem Admission Diagnosis/Problem Dehydration Source of Information: Patient History Limitations: Reports: No Limitations - History of Present Illness Initial Comments - Free Text/Narative: This 86 year old female with pmh of pacemaker, HTN, CHF with EF 35-40%, and chronic back pain from L1-L3 compression fractures presented to the ED today via EMS due to worsening R sided lower back pain which radiates to the front of her R thigh. She reports ambulating is very tough due to the extreme pain. She denies any falls, trauma or injuries recently. She reports a couple days ago she was doing daily housework and bent over to get clothes out of the dryer and felt a twinge in her back. Since then the pain bell progressively worsened. She reports most days her pain is good and has no issues. She uses Tylenol for pain and intermittent NSAIDs like Ibuprofen. In June she was admitted for similar symptoms and discharged to [facility] for short term rehabilitation with PT, which she reports she stayed a couple weeks and then went home. She denies chest pain , SOB or palpitations. No orthopnea. She reports improving edema to lower legs, but edema is still present. No fevers, chills or malaise. She reports some nausea and poor appetite, but she reports this is due to some pain. She hasn't been drinking much. Her last BM was yesterday, she denies it being black or bloody. She denies any abdominal pain, indigestion or bloating. No urine or stool incontinence In the ED no leukocytosis noted, Hgb 9.7, down from past of 10.6, BUN 36 and Cr 1.9, which are elevated from baseline of 10/0.9. CXR revealed Cardiomegaly otherwise no pneumonia or CHF appearances. Abdomen/Pelvis CT obtained which revealed bilateral moderate pleural pleural effusions, hydropic gallbladder suggesting possible acalculus cholecystitis. Small amount of pelvic and peritoneal fluid along the right paracolic gutter. Recommended ultrasound. She was treated with IVFs and Morphine in the ED. Admission to observation for back pain and further evaluation of gallbladder Upon review of clinic records from Dr Rousseau and Dr Wyatt Kristin was seen by neurosurgery in [place] who recommended surgery for her lumbar spine. She saw both Dr Rousseau and Dr Maria in consultation for pre-operative clearance. Dr Palmer recommended further evaluation with EPS and ECHO before he would clear patient for surgery. He also started her on Lasix 20 mg daily to her Coreg 12.5 BID, Cozaar 50 mg daily, Aldactone 25 mg daily. I spoke with Kristin regarding this and she reports she is headed to [place] October 24 to have pacemaker replaced. When discussing the next step for lumbar surgery, she reports she is really unsure about wanting to having this due to her age. I did contact Dr Palmer about admission due to elevated BUN CR and recent addition of Lasix. She was seen by Dr Hawk in [place] for pacemaker replacement. It was felt she is have CHF exacerbation due to pacemaker at [facility]. At that time Cr noted to be 1.4 and BUN 28. No changes to medications made. Dr Maria felt she is no where near stable enough to have back surgery until pacemaker exchanged and CHF is under control. ECHO from beginning of August 2017 revealed LV EF 35-40%, biatrial enlargement, moderate MR, AR and TR. Lower Back Pain Score (Numeric/FACES): 8 - Related Data Allergies/Adverse Reactions: Allergies Allergy/AdvReac Type Severity Reaction Status Date / Time No Known Allergies Allergy Verified 07/04/17 11:50 Home Medications: Home Meds Aspirin [Adult Low Dose Aspirin EC] 81 mg PO DAILY 04/01/14 [History] Losartan Potassium [Cozaar] 50 mg PO DAILY 04/01/14 [History] Spironolactone [Aldactone] 25 mg PO DAILY 04/01/14 [History] Carvedilol [Coreg] 12.5 mg DAILY 05/11/17 [History] Vitamin E 400 unit PO DAILY 05/14/17 [History] Ibuprofen [Motrin] 400 mg PO QID PRN #30 tab 05/17/17 [Rx] Acetaminophen/HYDROcodone [[place] 325-5 MG] 1 tab PO Q4H PRN #20 tablet 07/07/17 [Rx] Calcitonin ([place]ctor) [Miacalcin Nasal [place]] 1 spray TARSHA DAILY #1 bottle [Rx] Cyclobenzaprine [Flexeril] 5 mg PO BID PRN #15 tab 07/07/17 [Rx] Docusate Sodium [Colace] 100 mg PO BID #60 cap 07/07/17 [Rx] Acetaminophen [Tylenol] 650 mg PO Q8H PRN 09/27/17 [History] Furosemide 20 mg PO DAILY 09/27/17 [History] traMADol [Ultram] 50 mg PO BID PRN 09/27/17 [History] Past Medical History HEENT History: Reports: Cataract Cardiovascular History: Reports: Arrhythmia, Heart Failure, Pacemaker Respiratory History: Reports: None. Denies: COPD Gastrointestinal History: Reports: None Genitourinary History: Reports: None SCISSORS GRINDER History: Reports: Musculoskeletal History: Reports: Arthritis Other Musculoskeletal History: back surgery, 20 yrs ago Neurological History: Reports: None Psychiatric History: Reports: None Endocrine/Metabolic History: Reports: None. Denies: Diabetes, Type II Hematologic History: Reports: None Immunologic History: Reports: None Oncologic (Cancer) History: Reports: None Dermatologic History: Reports: None - Infectious Disease History Infectious Disease History: Reports: Chicken Pox, Measles, Mumps, Rubella, Shingles - Past Surgical History HEENT Surgical History: Reports: Cataract Surgery Cardiovascular Surgical History: Reports: Pacer Social & Family History - Family History Family Medical History: Noncontributory - Tobacco Use Smoking Status *Q: Never Smoker - Caffeine Use Caffeine Use: Reports: None - Alcohol Use Alcohol Use History: No - Recreational Drug Use Recreational Drug Use: No - Living Situation & Occupation Living situation: Reports: Alone Occupation: Retired H&P Review of Systems - Review of Systems: Review Of Systems: See Below General: Reports: No Symptoms. Denies: Fever, Chills, Malaise, Weakness HEENT: Reports: No Symptoms. Denies: Headaches, Hearing Changes, Sinus Congestion, Sore Throat, Vertigo Pulmonary: Reports: No Symptoms. Denies: Shortness of Breath, Cough, Sputum Cardiovascular: Reports: Edema (improving to lower legs). Denies: Chest Pain, Palpitations, Orthopnea Gastrointestinal: Reports: Nausea. Denies: Abdominal Pain, Black Stool, Bloody Stool Genitourinary: Reports: No Symptoms. Denies: Dysuria, Frequency, Burning Musculoskeletal: Reports: Back Pain (R lower back pain with radiation to front of R thigh) Exam - Exam Exam: See Below - Vital Signs Vital Signs: Last Vital Signs Temp 97.9 F 09/27/17 09:18 Pulse 65 09/27/17 09:18 Resp 18 09/27/17 09:18 BP 97/60 09/27/17 09:18 Pulse Ox 94 L 09/27/17 09:18 - Exam Quality Assessment: DVT Prophylaxis. No: Supplemental Oxygen General: Alert, Oriented, Cooperative HEENT: Conjunctiva Clear, Nares Patent, Posterior Pharynx Clear. No: Mucosa Moist & [place] (dry) Neck: Supple, Trachea Midline, JVD (via US with Dr Maria) Lungs: Clear to Auscultation, Normal Respiratory Effort Cardiovascular: Regular Rate, Regular Rhythm. No: Systolic Murmur GI/Abdominal Exam: Normal Bowel Sounds, Soft, Non-Tender, No Organomegaly, No Distention, No Abnormal Bruit, No Mass, Pelvis Stable Back Exam: Normal Inspection, Other (Tenderness noted to R lower back, no vertebral in nature. Then radiates to anterior R thigh. Able to do straight leg raise, but on the R side it exacerbates the pain. No numbness, tingling or sensation loss. ) Extremities: Normal Inspection, Normal Range of Motion, Pedal Edema (+1 pedal edema) Neurological: Cranial Nerves Intact Neuro Extensive - Mental Status: Alert, Oriented x3, Normal Mood/Affect, Normal Cognition, Memory Intact Neuro Extensive - Motor, Sensory, Reflexes: CN II-XII Intact Psychiatric: Alert, Normal Affect, Normal Mood - Patient Data Lab Results Last 24 hrs: Laboratory Results - last 24 hr 09/27/17 09/27/17 09/27/17 Range/Units 09:35 09:35 09:35 WBC 4.94 (4.0-11.0) K/uL RBC 3.15 L (4.30-5.90) M/uL Hgb 9.7 L (12.0-16.0) g/dL Hct 28.8 L (36.0-46.0) % MCV 91.4 (80.0-98.0) fL MCH 30.8 (27.0-32.0) pg MCHC 33.7 (31.0-37.0) g/dL RDW Std Deviation 50.6 (28.0-62.0) fl RDW Coeff of Sylwia 15 (11.0-15.0) % Plt Count 177 (150-400) K/uL MPV 10.70 (7.40-12.00) fL Neut % (Auto) 68.5 (48.0-80.0) % Lymph % (Auto) 20.0 (16.0-40.0) % [place] % (Auto) 10.3 (0.0-15.0) % Eos % (Auto) 1.0 (0.0-7.0) % Baso % (Auto) 0.2 (0.0-1.5) % Neut # (Auto) 3.4 (1.4-5.7) K/uL Lymph # (Auto) 1.0 (0.6-2.4) K/uL [place] # (Auto) 0.5 (0.0-0.8) K/uL Eos # (Auto) 0.1 (0.0-0.7) K/uL Baso # (Auto) 0.0 (0.0-0.1) K/uL Nucleated RBC % 0.0 /100WBC Nucleated RBCs # 0 K/uL INR 1.12 Sodium 138 (136-145) mmol/L Potassium 3.5 (3.5-5.1) mmol/L Chloride 105 (98-107) mmol/L Carbon Dioxide 17.1 L (21.0-32.0) mmol/L BUN 36 H (7.0-18.0) mg/dL Creatinine 1.9 H (0.6-1.0) mg/dL Est Cr Clr Drug Dosing TNP Estimated GFR (MDRD) 24.9 ml/min Glucose 98 (74-106) mg/dL Calcium 8.5 (8.5-10.1) mg/dL Total Bilirubin 0.7 (0.2-1.0) mg/dL AST 21 (15-37) IU/L ALT 37 (14-63) IU/L Alkaline Phosphatase 73 (46-116) U/L Total Protein 5.6 L (6.4-8.2) g/dL Albumin 3.1 L (3.4-5.0) g/dL Globulin 2.5 (2.0-3.5) g/dL Albumin/Globulin Ratio 1.2 L (1.3-2.8) Result Diagrams: 09/27/17 09:35 09/27/17 09:35 *Q Meaningful Use (ADM) - VTE Risk Assess *Q Each Risk Factor Represents 1 Point: Swollen Legs, Current, Congestive heart failure (CHF) Total Score 1 Point Risk Factors: 2 Each Risk Factor Represents 2 Points: None Total Score 2 Point Risk Factors: 0 Each Risk Factor Represents 3 Points: Age 75 Years or Greater Total Score 3 Point Risk Factors: 3 Each Risk Factor Represents 5 Points: None Total Score 5 Point Risk Factors: 0 Venous Thromboembolism Risk Factor Score *Q: 5 - Problem List (1) Back pain SNOMED Code(s): 339389725 ICD Code: M54.9 - DORSALGIA, UNSPECIFIED Status: Acute Current Visit: No Qualifiers: Back pain location: low back pain Chronicity: chronic Back pain laterality: right Sciatica presence: without sciatica Qualified Code(s): M54.5 - Low back pain; G89.29 - Other chronic pain (2) HUYEN (acute kidney injury) SNOMED Code(s): 45976554 ICD Code: N17.9 - ACUTE KIDNEY FAILURE, UNSPECIFIED Status: Acute Current Visit: Yes (3) Dehydration SNOMED Code(s): 12089888 ICD Code: E86.0 - DEHYDRATION Status: Acute Current Visit: Yes (4) Compression fracture of L3 lumbar vertebra SNOMED Code(s): 531340962 ICD Code: S32.030A - WEDGE COMPRESSION FRACTURE OF THIRD LUMBAR VERTEBRA, INIT Status: Acute Current Visit: No Qualifiers: Encounter type: subsequent encounter Fracture type: closed (5) Hypertension SNOMED Code(s): 55110400 ICD Code: I10 - ESSENTIAL (PRIMARY) HYPERTENSION Status: Chronic Priority : Low Current Visit: No Qualifiers: Hypertension type: essential hypertension Qualified Code(s): I10 - Essential (primary) hypertension (6) Pacemaker SNOMED Code(s): 682964137 ICD Code: Z95.0 - PRESENCE OF CARDIAC PACEMAKER Status: Chronic Current Visit: No (7) Non-ischemic cardiomyopathy SNOMED Code(s): 70029581 ICD Code: I42.8 - OTHER CARDIOMYOPATHIES Status: Chronic Current Visit: Yes (8) 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 SNOMED Code(s): 733663833 ICD Code: Z45.010 - ENCNTR FOR CHECKING AND TEST OF CARD PACEMAKER PULSE GNRTR Status: Chronic Current Visit: Yes (9) Sleep apnea SNOMED Code(s): 34239310 ICD Code: G47.30 - SLEEP APNEA, UNSPECIFIED Status: Chronic Current Visit : Yes (10) Osteoporosis SNOMED Code(s): 54116782 ICD Code: M81.0 - AGE-RELATED OSTEOPOROSIS W/O CURRENT PATHOLOGICAL FRACTURE Status: Chronic Current Visit: Yes (11) Aortic valve regurgitation SNOMED Code(s): 53428973 ICD Code: I35.1 - NONRHEUMATIC AORTIC (VALVE) INSUFFICIENCY Status: Chronic Current Visit: Yes Qualifiers: Cardiac valve disease etiology: nonrheumatic Qualified Code(s): I35.1 - Nonrheumatic aortic (valve) insufficiency (12) Mitral valve regurgitation SNOMED Code(s): 38502565 ICD Code: I34.0 - NONRHEUMATIC MITRAL (VALVE) INSUFFICIENCY Status: Chronic Current Visit: Yes Qualifiers: Cardiac valve disease etiology: nonrheumatic Qualified Code(s): I34.0 - Nonrheumatic mitral (valve) insufficiency Problem List Initiated/Reviewed/Updated: Yes Orders Last 24hrs: Active Orders 24 hr Category Date Time Status Patient Status [ADT] Stat ADT 09/27/17 11:44 Active EKG Documentation Completion [RC] STAT Care 09/27/17 09:24 Active Notify Provider Consults [RC] ASDIRECTED Care 09/27/17 11:46 Active Consult to Physician [CONS] Stat Cons 09/27/17 11:45 Active CULTURE BLOOD [BC] Stat Lab 09/27/17 11:40 Ordered CULTURE BLOOD [BC] Stat Lab 09/27/17 11:40 Ordered CULTURE URINE [RM] Stat Lab 09/27/17 11:57 Ordered UA W/MICROSCOPIC [URIN] Stat Lab 09/27/17 11:57 Ordered Sodium Chloride 0.9% [Normal Saline] 1,000 ml Med 09/27/17 09:30 Active IV STAT Sodium Chloride 0.9% [Saline Flush] Med 09/27/17 09:26 Active 10 ml FLUSH ASDIRECTED PRN Sodium Chloride 0.9% [Saline Flush] Med 09/27/17 09:26 Active 2.5 ml FLUSH ASDIRECTED PRN Blood Culture x2 Reflex Set [OM.PC] Stat Oth 09/27/17 11:40 Ordered Saline Lock Insert [OM.PC] Stat Oth 09/27/17 09:24 Ordered Medication Orders Sodium Chloride (Normal Saline) 1,000 mls @ 125 mls/hr IV STAT SOCRATES Last Admin: 09/27/17 10:13 Dose: 125 mls/hr Sodium Chloride (Saline Flush) 10 ml FLUSH ASDIRECTED PRN PRN Reason: Keep Vein Open Sodium Chloride (Saline Flush) 2.5 ml FLUSH ASDIRECTED PRN PRN Reason: Keep Vein Open Assessment/Plan Comment:: This 86 year old female admitted with back pain with some HUYEN with non-ischemic CHF 1. Back pain: Will treat conservatively with Tylenol, Flexeril, Morphine PRN and PT to evaluate and treat. Ice/heat therapy PRN pain. No NSAIDs due to HUYEN. Continue Calcitonin nasal spray. 2. HUYEN: Received 1 L NS in the ED, will give another 1 L NS tonight gently, 75 ml/hr. Discussed with Dr Palmer. He evaluated patient and agreed with IVFs, along with continuing her diuretics. HUYEN maybe related to not eating drinking along with nausea recently. JVD observed with Dr Maira at bedside with ultrasound 3. Hydropic gallbladder: Discussed case with Dr Rodrigues, he will visit with patient. Poor surgical candidate due to CHF. No antibiotics at this time, no fever, leukocytosis, no abdominal pain, no elevation in LFTs. CL diet for now. US reveals abnormal gallbladder with pericholecystic fluid consistent with acalculus cholecystitis. May be due to her not eating recently. Will await consultation from Dr Rodrigues. 4. 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 Pacemaker to be replaced October 24 in [place]. Will monitor fluids closely, continue Spironolactone and Lasix per Dr Maria recommendations. Monitor Cr in am. Will add on BNP due to recent CHF exacerbation. Dr Maria recommends nielsen placement for strict urine output. Daily weights, low salt diet. 5. HTN: BP run low 100-110 SBP normally. Continue Coreg, Hold Losartan due to HUYEN. VTE prophylaxis: Hgb dropped 1 gm since 09/22 in [place]. Check Hemoccult. SCDs for now and monitor If hemoccult neg, start Heparin. Dispo: 1-2 days.
[2017-09-27] MEDS: Heparin Sodium 5,000 Units/ML Vial SUBCUT SCH ×2 (13:01→13:04)
[2017-09-27] MEDS: Cyclobenzaprine 5 MG Tab PO PRN (13:02)
[2017-09-27] MEDS ORDERED: Bisacodyl 10 MG Supp RECTAL PRN (13:12)
--- NOTE | 2017-09-27 15:02 | US ---
Abdominal sonogram attention the gallbladder Clinical history: Abnormal CT scan same date. Findings: Gallbladder is distended with thickened gallbladder wall and pericholecystic fluid without calculi. The findings are consistent with acalculus cholecystitis. This can be seen in patients who h ave not been eating. The bile duct is normal. Liver is somewhat echogenic. There is an incidental rig ht renal cyst of no consequence. Impression: abnormal gallbladder with pericholecystic fluid consistent with a calculus cholecystitis
[2017-09-27] MEDS: traMADol 50 MG Tab PO PRN (15:16)
--- NOTE | 2017-09-27 17:48 | PCM.CONS ---
H&P History of Present Illness - General Date of Service: 09/27/17 Admit Problem/Dx: Admission Diagnosis/Problem Admission Diagnosis/Problem Dehydration Weakness. No energy. Feels like heart isn't "pumping" very well. Source of Information: Patient History Limitations: Reports: No Limitations - History of Present Illness Onset of Symptoms: Reports: Today Location: Reports: Chest Severity: Moderate Improves with: Reports: Rest Worsens with: Reports: Movement Associated Symptoms: Reports: Chest Pain, Loss of Appetite, Weakness. Denies: Confusion, Cough, Fever/Chills, Syncope Lower Back Pain Score (Numeric/FACES): 8 - Related Data Allergies/Adverse Reactions: Allergies Allergy/AdvReac Type Severity Reaction Status Date / Time No Known Allergies Allergy Verified 07/04/17 11:50 Home Medications: Home Meds Aspirin [Adult Low Dose Aspirin EC] 81 mg PO DAILY 04/01/14 [History] Losartan Potassium [Cozaar] 50 mg PO DAILY 04/01/14 [History] Spironolactone [Aldactone] 25 mg PO DAILY 04/01/14 [History] Carvedilol [Coreg] 12.5 mg DAILY 05/11/17 [History] Vitamin E 400 unit PO DAILY 05/14/17 [History] Ibuprofen [Motrin] 400 mg PO QID PRN #30 tab 05/17/17 [Rx] Acetaminophen/HYDROcodone [[place] 325-5 MG] 1 tab PO Q4H PRN #20 tablet 07/07/17 [Rx] Calcitonin ([place]) [Miacalcin Nasal [place]] 1 spray TARSHA DAILY #1 bottle [Rx] Cyclobenzaprine [Flexeril] 5 mg PO BID PRN #15 tab 07/07/17 [Rx] Docusate Sodium [Colace] 100 mg PO BID #60 cap 07/07/17 [Rx] Acetaminophen [Tylenol] 650 mg PO Q8H PRN 09/27/17 [History] Furosemide 20 mg PO DAILY 09/27/17 [History] traMADol [Ultram] 50 mg PO BID PRN 09/27/17 [History] Past Medical History HEENT History: Reports: Cataract Cardiovascular History: Reports: Arrhythmia, Heart Failure, Pacemaker Respiratory History: Reports: None. Denies: COPD Gastrointestinal History: Reports: None Genitourinary History: Reports: None [employer] History: Reports: Musculoskeletal History: Reports: Arthritis Other Musculoskeletal History: back surgery, 20 yrs ago Neurological History: Reports: None Psychiatric History: Reports: None Endocrine/Metabolic History: Reports: None. Denies: Diabetes, Type II Hematologic History: Reports: None Immunologic History: Reports: None Oncologic (Cancer) History: Reports: None Dermatologic History: Reports: None - Infectious Disease History Infectious Disease History: Reports: Chicken Pox, Measles, Mumps, Rubella, Shingles - Past Surgical History HEENT Surgical History: Reports: Cataract Surgery Cardiovascular Surgical History: Reports: Pacer Social & Family History - Family History Family Medical History: Noncontributory - Tobacco Use Smoking Status *Q: Never Smoker Second Hand Smoke Exposure: No - Caffeine Use Caffeine Use: Reports: None - Recreational Drug Use Recreational Drug Use: No - Living Situation & Occupation Living situation: Reports: Alone Occupation: Retired H&P Review of Systems - Review of Systems: Review Of Systems: See Below General: Reports: Malaise, Weakness, Fatigue, Decreased Appetite. Denies: Fever , Chills, Weight Loss HEENT: Reports: No Symptoms Pulmonary: Denies: Shortness of Breath, Wheezing Cardiovascular: Reports: Dyspnea on Exertion, Other (No energy.) Gastrointestinal: Reports: Decreased Appetite, Flatus. Denies: Abdominal Pain, Anorexia, Black Stool, Bloody Stool, Constipation, Diarrhea, Difficulty Swallowing, Distension, Hematemesis, Hematochezia, Melena, Nausea, Vomiting Genitourinary: Reports: No Symptoms Musculoskeletal: Reports: No Symptoms Skin: Denies: Cyanosis, Jaundice, Mottled, Pallor, Diaphoresis Psychiatric: Denies: Confusion Neurological: Denies: Confusion Hematologic/Lymphatic: Reports: Anemia Immunologic: Reports: No Symptoms Exam - Exam Exam: See Below - Vital Signs Vital Signs: Last Vital Signs Temp 97.5 F 09/27/17 16:22 Pulse 63 09/27/17 16:22 Resp 16 09/27/17 16:22 BP 88/47 L 09/27/17 16:22 Pulse Ox 96 09/27/17 16:22 Weight: 148 lb 12.8 oz - Exam Quality Assessment: Supplemental Oxygen General: Alert, Oriented, Cooperative, Mild Distress, Lethargic HEENT: Conjunctiva Clear, Nares Patent, Pupils Equal. No: Scleral Icterus Neck: Supple, Trachea Midline Lungs: Clear to Auscultation, Decreased Breath Sounds (both bases). No: Crackles, Rales, Rhonchi Cardiovascular: Regular Rate, Regular Rhythm (Heart rate is slow but not bradycardic by definition.), Other (Due for pacemaker change 10/24/17.). No: Systolic Murmur, Diastolic Murmur GI/Abdominal Exam: Normal Bowel Sounds, Soft, Non-Tender, No Distention, No Mass. No: Guarding, Rigid, Rebound (Female) Exam: Deferred Rectal (Female) Exam: Deferred Extremities: Normal Inspection. No: Neha's Sign Peripheral Pulses: 4+: Posterior Tibial (L), Posterior Tibial (R), Dorsalis Pedis (L), Dorsalis Pedis (R) Skin: Warm, Dry, Intact Neurological: Cranial Nerves Intact Neuro Extensive - Mental Status: Alert, Oriented x3, Normal Mood/Affect, Normal Cognition Psychiatric: Alert, Normal Affect, Normal Mood - Patient Data Lab Results Last 24 hrs: Laboratory Results - last 24 hr 09/27/17 09/27/17 09/27/17 Range/Units 09:35 09:35 09:35 WBC 4.94 (4.0-11.0) K/uL RBC 3.15 L (4.30-5.90) M/uL Hgb 9.7 L (12.0-16.0) g/dL Hct 28.8 L (36.0-46.0) % MCV 91.4 (80.0-98.0) fL MCH 30.8 (27.0-32.0) pg MCHC 33.7 (31.0-37.0) g/dL RDW Std Deviation 50.6 (28.0-62.0) fl RDW Coeff of Sylwia 15 (11.0-15.0) % Plt Count 177 (150-400) K/uL MPV 10.70 (7.40-12.00) fL Neut % (Auto) 68.5 (48.0-80.0) % Lymph % (Auto) 20.0 (16.0-40.0) % [place] % (Auto) 10.3 (0.0-15.0) % Eos % (Auto) 1.0 (0.0-7.0) % Baso % (Auto) 0.2 (0.0-1.5) % Neut # (Auto) 3.4 (1.4-5.7) K/uL Lymph # (Auto) 1.0 (0.6-2.4) K/uL [place] # (Auto) 0.5 (0.0-0.8) K/uL Eos # (Auto) 0.1 (0.0-0.7) K/uL Baso # (Auto) 0.0 (0.0-0.1) K/uL Nucleated RBC % 0.0 /100WBC Nucleated RBCs # 0 K/uL INR 1.12 Sodium 138 (136-145) mmol/L Potassium 3.5 (3.5-5.1) mmol/L Chloride 105 (98-107) mmol/L Carbon Dioxide 17.1 L (21.0-32.0) mmol/L BUN 36 H (7.0-18.0) mg/dL Creatinine 1.9 H (0.6-1.0) mg/dL Est Cr Clr Drug Dosing TNP Estimated GFR (MDRD) 24.9 ml/min Glucose 98 (74-106) mg/dL Calcium 8.5 (8.5-10.1) mg/dL Total Bilirubin 0.7 (0.2-1.0) mg/dL AST 21 (15-37) IU/L ALT 37 (14-63) IU/L Alkaline Phosphatase 73 (46-116) U/L B-Natriuretic Peptide (<100) PG/ML Total Protein 5.6 L (6.4-8.2) g/dL Albumin 3.1 L (3.4-5.0) g/dL Globulin 2.5 (2.0-3.5) g/dL Albumin/Globulin Ratio 1.2 L (1.3-2.8) Urine Color Urine Appearance Urine pH (5.0-8.0) Ur Specific [place] (1.001-1.035) Urine Protein (NEGATIVE) mg/dL Urine Glucose (UA) (NEGATIVE) mg/dL Urine Ketones (NEGATIVE) mg/dL Urine Occult Blood (NEGATIVE) Urine Nitrite (NEGATIVE) Urine Bilirubin (NEGATIVE) Urine Urobilinogen (<2.0) EU/dL Ur Leukocyte Esterase (NEGATIVE) Urine RBC (0-2/HPF) Urine WBC (0-5/HPF) Ur Epithelial Cells (NONE-FEW) Amorphous Sediment (NEGATIVE) Urine Bacteria (NEGATIVE) 09/27/17 09/27/17 Range/Units 09:35 11:57 WBC (4.0-11.0) K/uL RBC (4.30-5.90) M/uL Hgb (12.0-16.0) g/dL Hct (36.0-46.0) % MCV (80.0-98.0) fL MCH (27.0-32.0) pg MCHC (31.0-37.0) g/dL RDW Std Deviation (28.0-62.0) fl RDW Coeff of Sylwia (11.0-15.0) % Plt Count (150-400) K/uL MPV (7.40-12.00) fL Neut % (Auto) (48.0-80.0) % Lymph % (Auto) (16.0-40.0) % [place] % (Auto) (0.0-15.0) % Eos % (Auto) (0.0-7.0) % Baso % (Auto) (0.0-1.5) % Neut # (Auto) (1.4-5.7) K/uL Lymph # (Auto) (0.6-2.4) K/uL [place] # (Auto) (0.0-0.8) K/uL Eos # (Auto) (0.0-0.7) K/uL Baso # (Auto) (0.0-0.1) K/uL Nucleated RBC % /100WBC Nucleated RBCs # K/uL INR Sodium (136-145) mmol/L Potassium (3.5-5.1) mmol/L Chloride (98-107) mmol/L Carbon Dioxide (21.0-32.0) mmol/L BUN (7.0-18.0) mg/dL Creatinine (0.6-1.0) mg/dL Est Cr Clr Drug Dosing Estimated GFR (MDRD) ml/min Glucose (74-106) mg/dL Calcium (8.5-10.1) mg/dL Total Bilirubin (0.2-1.0) mg/dL AST (15-37) IU/L ALT (14-63) IU/L Alkaline Phosphatase (46-116) U/L B-Natriuretic Peptide 1866 H (<100) PG/ML Total Protein (6.4-8.2) g/dL Albumin (3.4-5.0) g/dL Globulin (2.0-3.5) g/dL Albumin/Globulin Ratio (1.3-2.8) Urine Color YELLOW Urine Appearance CLEAR Urine pH 5.5 (5.0-8.0) Ur Specific [place] 1.015 (1.001-1.035) Urine Protein TRACE (NEGATIVE) mg/dL Urine Glucose (UA) NEGATIVE (NEGATIVE) mg/dL Urine Ketones NEGATIVE (NEGATIVE) mg/dL Urine Occult Blood NEGATIVE (NEGATIVE) Urine Nitrite NEGATIVE (NEGATIVE) Urine Bilirubin NEGATIVE (NEGATIVE) Urine Urobilinogen 0.2 (<2.0) EU/dL Ur Leukocyte Esterase NEGATIVE (NEGATIVE) Urine RBC 0-2 (0-2/HPF) Urine WBC 2-4 (0-5/HPF) Ur Epithelial Cells FEW (NONE-FEW) Amorphous Sediment FEW (NEGATIVE) Urine Bacteria FEW (NEGATIVE) Result Diagrams: 09/27/17 09:35 09/27/17 09:35 [place] Results Last 24 hrs: Microbiology 09/27/17 12:28 Anaerobic Blood Culture - Final Blood - Venous - Lab Draw 09/27/17 12:01 Anaerobic Blood Culture - Final Blood - Venous Consult PN Assessment/Plan Procedures: Procedures ASSAY OF BLOOD/URIC ACID (06/11/15) ASSAY OF MAGNESIUM (07/04/17) ASSAY OF NATRIURETIC PEPTIDE (09/21/16) ASSAY OF PHOSPHORUS (05/14/17) ASSAY THYROID STIM HORMONE (07/12/16) C-REACTIVE PROTEIN (06/11/15) CARDIOVASCULAR STRESS TEST (01/20/14) CHEST X-RAY 2VW FRONTAL&LATL (09/21/16) COMPLETE CBC AUTOMATED (07/12/16) COMPLETE CBC W/AUTO DIFF WBC (07/04/17) COMPREHEN METABOLIC PANEL (07/04/17) CT LUMBAR SPINE W/O DYE (05/11/17) DRAIN/INJ JOINT/BURSA W/O US (05/15/14) ELECTROCARDIOGRAM TRACING (05/11/17) EMERGENCY DEPT VISIT (07/04/17) EMERGENCY DEPT VISIT (06/30/17) EMERGENCY DEPT VISIT (06/11/15) HT MUSCLE IMAGE SPECT MULT (01/20/14) HYDRATE IV INFUSION ADD-ON (05/11/17) HYDRATION IV INFUSION INIT (05/11/17) LIPID PANEL (11/09/15) METABOLIC PANEL TOTAL CA (07/04/17) OFFICE/OUTPATIENT VISIT EST (09/21/16) OFFICE/OUTPATIENT VISIT EST (06/18/15) OFFICE/OUTPATIENT VISIT EST (10/27/14) OFFICE/OUTPATIENT VISIT EST (05/15/14) OFFICE/OUTPATIENT VISIT EST (12/06/13) PPSV23 VACC 2 YRS+ SUBQ/IM (11/09/15) PT EVAL LOW COMPLEX 20 MIN (07/04/17) RBC SED RATE AUTOMATED (11/09/15) REMOVE IMPACTED EAR WAX UNI (11/09/15) ROUTINE VENIPUNCTURE (07/04/17) THER/PROPH/DIAG INJ IV PUSH (05/14/17) THER/PROPH/DIAG INJ SC/IM (05/14/17) THER/PROPH/DIAG IV INF INIT (07/04/17) THERAPEUTIC ACTIVITIES (07/04/17) THERAPEUTIC EXERCISES (07/04/17) TTE W/DOPPLER COMPLETE (08/24/17) TX/PRO/DX INJ NEW DRUG ADDON (07/04/17) TX/PRO/DX INJ SAME DRUG BIOINFORMATICIST (05/14/17) URINALYSIS AUTO W/SCOPE (07/04/17) URINE CULTURE/COLONY COUNT (05/14/17) US EXAM ABDO BACK WALL RIVERA (11/03/14) US EXAM OF HEAD AND NECK (02/04/15) VITAMIN B-12 (07/12/16) X-RAY EXAM CHEST 1 VIEW (05/11/17) X-RAY EXAM HIPS BI 2 VIEWS (08/31/17) X-RAY EXAM L-S SPINE 2/3 VWS (06/30/17) X-RAY EXAM OF ANKLE (06/11/15) X-RAY EXAM OF ELBOW (04/10/14) X-RAY EXAM OF FOOT (06/23/15) X-RAY EXAM THORAC SPINE 3VWS (06/30/17) (1) Gallbladder dilatation SNOMED Code(s): 079087162 Code(s): K82.8 - OTHER SPECIFIED DISEASES OF GALLBLADDER Priority: Low Current Visit: Yes (2) Dehydration SNOMED Code(s): 39798360 Code(s): E86.0 - DEHYDRATION Priority: High Current Visit: Yes (3) Pleural effusion SNOMED Code(s): 92214935 Code(s): J90 - PLEURAL EFFUSION, NOT ELSEWHERE CLASSIFIED Priority: Medium Current Visit: Yes Problem List Initiated/Reviewed/Updated: Yes Plan: Ultrasound and CT scan personally reviewed. I agree gallbladder is dilated on radiologic imaging. The gallbladder is not palpably enlarged and there is no [place]' or [place]' sign. She has not been eating well and I suspect this may partially account for the dilatation. In the absence of fever and leucocytosis, I do not think this represents a true acalculus cholecystitis. With her bilateral pleural effusions and need for a pacemaker generator change, I would be more concerned about her cardiac status. I see no indication that she would need a percutaneous cholecystostomy tube. If we can improve her cardiac function, this may help resolve the pleural effusions. RECOMMEND: Clear to full liquid diet. Would recheck a CBCAD in the morning, if not already ordered. Continue to follow chemistries, especially her renal function. She may to be considered for earlier pacemaker generator change. Thank you.
[2017-09-27] MEDS: Docusate Sodium 100 MG Cap PO SCH (20:29)
[2017-09-27] MEDS: Carvedilol 12.5 MG Tab PO SCH (20:44)
[2017-09-27] MEDS: Acetaminophen 500 MG Tab PO PRN (21:04)
[2017-09-28] MEDS: Acetaminophen 500 MG Tab PO PRN ×2 (06:47→13:31)
[2017-09-28] MEDS ORDERED: Potassium Chloride 20 MEQ Tab.ER PO ONE (07:23)
--- NOTE | 2017-09-28 07:37 | PCM.PN ---
- General Info Date of Service: 09/28/17 Admission Dx/Problem (Free Text): Admission Diagnosis/Problem Admission Diagnosis/Problem Dehydration, back pain Subjective Update: Feeling a littler better this morning, No chest pain or SOB. lying nearly flat with 1 pillow currently. Just got back to bed from sitting in the chair for breakfast, only CL diet and requesting more food. " I am hungry." Feels edema to lower legs has improved. She refused nielsen catheter last night. Back pain is improved slightly. But it hurts worse with movement and sitting. Functional Status: Reports: Pain Controlled, Tolerating Diet, Ambulating, Urinating - Review of Systems General: Reports: Fatigue. Denies: Fever, Weakness, Malaise, Chills HEENT: Reports: No Symptoms. Denies: Headaches, Sore Throat, Rhinitis, Visual Changes Pulmonary: Reports: No Symptoms. Denies: Shortness of Breath, Pleuritic Chest Pain, Sputum Cardiovascular: Reports: No Symptoms. Denies: Chest Pain, Palpitations, Dyspnea on Exertion, Orthopnea Gastrointestinal: Reports: No Symptoms. Denies: Abdominal Pain, Nausea, Vomiting Genitourinary: Reports: No Symptoms. Denies: Dysuria, Frequency, Burning Musculoskeletal: Reports: Back Pain (continues, but slightly improved, continues to radiate to R front of thigh) Neurological: Reports: No Symptoms Psychiatric: Reports: No Symptoms - Patient Data Vitals - Most Recent: Last Vital Signs Temp 97.6 F 09/28/17 07:17 Pulse 65 09/28/17 07:17 Resp 18 09/28/17 07:17 BP 102/55 L 09/28/17 07:17 Pulse Ox 93 L 09/28/17 07:17 Weight - Most Recent: 65.7 kg I&O - Last 24 Hours: Intake & Output 09/27/17 09/28/17 09/28/17 22:59 06:59 14:59 Intake Total 320 1790 Output Total 0 200 Balance 320 1590 Lab Results Last 24 Hours: Laboratory Results - last 24 hr 09/27/17 09/27/17 09/27/17 Range/Units 09:35 09:35 09:35 WBC 4.94 (4.0-11.0) K/uL RBC 3.15 L (4.30-5.90) M/uL Hgb 9.7 L (12.0-16.0) g/dL Hct 28.8 L (36.0-46.0) % MCV 91.4 (80.0-98.0) fL MCH 30.8 (27.0-32.0) pg MCHC 33.7 (31.0-37.0) g/dL RDW Std Deviation 50.6 (28.0-62.0) fl RDW Coeff of Sylwia 15 (11.0-15.0) % Plt Count 177 (150-400) K/uL MPV 10.70 (7.40-12.00) fL Neut % (Auto) 68.5 (48.0-80.0) % Lymph % (Auto) 20.0 (16.0-40.0) % Nash % (Auto) 10.3 (0.0-15.0) % Eos % (Auto) 1.0 (0.0-7.0) % Baso % (Auto) 0.2 (0.0-1.5) % Neut # (Auto) 3.4 (1.4-5.7) K/uL Lymph # (Auto) 1.0 (0.6-2.4) K/uL Nash # (Auto) 0.5 (0.0-0.8) K/uL Eos # (Auto) 0.1 (0.0-0.7) K/uL Baso # (Auto) 0.0 (0.0-0.1) K/uL Nucleated RBC % 0.0 /100WBC Nucleated RBCs # 0 K/uL INR 1.12 Sodium 138 (136-145) mmol/L Potassium 3.5 (3.5-5.1) mmol/L Chloride 105 (98-107) mmol/L Carbon Dioxide 17.1 L (21.0-32.0) mmol/L BUN 36 H (7.0-18.0) mg/dL Creatinine 1.9 H (0.6-1.0) mg/dL Est Cr Clr Drug Dosing TNP Estimated GFR (MDRD) 24.9 ml/min Glucose 98 (74-106) mg/dL Calcium 8.5 (8.5-10.1) mg/dL Total Bilirubin 0.7 (0.2-1.0) mg/dL AST 21 (15-37) IU/L ALT 37 (14-63) IU/L Alkaline Phosphatase 73 (46-116) U/L B-Natriuretic Peptide (<100) PG/ML Total Protein 5.6 L (6.4-8.2) g/dL Albumin 3.1 L (3.4-5.0) g/dL Globulin 2.5 (2.0-3.5) g/dL Albumin/Globulin Ratio 1.2 L (1.3-2.8) Urine Color Urine Appearance Urine pH (5.0-8.0) Ur Specific [place] (1.001-1.035) Urine Protein (NEGATIVE) mg/dL Urine Glucose (UA) (NEGATIVE) mg/dL Urine Ketones (NEGATIVE) mg/dL Urine Occult Blood (NEGATIVE) Urine Nitrite (NEGATIVE) Urine Bilirubin (NEGATIVE) Urine Urobilinogen (<2.0) EU/dL Ur Leukocyte Esterase (NEGATIVE) Urine RBC (0-2/HPF) Urine WBC (0-5/HPF) Ur Epithelial Cells (NONE-FEW) Amorphous Sediment (NEGATIVE) Urine Bacteria (NEGATIVE) 09/27/17 09/27/17 09/28/17 Range/Units 09:35 11:57 05:00 WBC 4.70 (4.0-11.0) K/uL RBC 3.24 L (4.30-5.90) M/uL Hgb 9.8 L (12.0-16.0) g/dL Hct 30.0 L (36.0-46.0) % MCV 92.6 (80.0-98.0) fL MCH 30.2 (27.0-32.0) pg MCHC 32.7 (31.0-37.0) g/dL RDW Std Deviation 51.3 (28.0-62.0) fl RDW Coeff of Sylwia 15 (11.0-15.0) % Plt Count 203 (150-400) K/uL MPV 11.10 (7.40-12.00) fL Neut % (Auto) 56.0 (48.0-80.0) % Lymph % (Auto) 27.2 (16.0-40.0) % Nash % (Auto) 15.3 H (0.0-15.0) % Eos % (Auto) 1.3 (0.0-7.0) % Baso % (Auto) 0.2 (0.0-1.5) % Neut # (Auto) 2.6 (1.4-5.7) K/uL Lymph # (Auto) 1.3 (0.6-2.4) K/uL Nash # (Auto) 0.7 (0.0-0.8) K/uL Eos # (Auto) 0.1 (0.0-0.7) K/uL Baso # (Auto) 0.0 (0.0-0.1) K/uL Nucleated RBC % 0.0 /100WBC Nucleated RBCs # 0 K/uL INR Sodium (136-145) mmol/L Potassium (3.5-5.1) mmol/L Chloride (98-107) mmol/L Carbon Dioxide (21.0-32.0) mmol/L BUN (7.0-18.0) mg/dL Creatinine (0.6-1.0) mg/dL Est Cr Clr Drug Dosing Estimated GFR (MDRD) ml/min Glucose (74-106) mg/dL Calcium (8.5-10.1) mg/dL Total Bilirubin (0.2-1.0) mg/dL AST (15-37) IU/L ALT (14-63) IU/L Alkaline Phosphatase (46-116) U/L B-Natriuretic Peptide 1866 H (<100) PG/ML Total Protein (6.4-8.2) g/dL Albumin (3.4-5.0) g/dL Globulin (2.0-3.5) g/dL Albumin/Globulin Ratio (1.3-2.8) Urine Color YELLOW Urine Appearance CLEAR Urine pH 5.5 (5.0-8.0) Ur Specific [place] 1.015 (1.001-1.035) Urine Protein TRACE (NEGATIVE) mg/dL Urine Glucose (UA) NEGATIVE (NEGATIVE) mg/dL Urine Ketones NEGATIVE (NEGATIVE) mg/dL Urine Occult Blood NEGATIVE (NEGATIVE) Urine Nitrite NEGATIVE (NEGATIVE) Urine Bilirubin NEGATIVE (NEGATIVE) Urine Urobilinogen 0.2 (<2.0) EU/dL Ur Leukocyte Esterase NEGATIVE (NEGATIVE) Urine RBC 0-2 (0-2/HPF) Urine WBC 2-4 (0-5/HPF) Ur Epithelial Cells FEW (NONE-FEW) Amorphous Sediment FEW (NEGATIVE) Urine Bacteria FEW (NEGATIVE) 09/28/17 Range/Units 05:00 WBC (4.0-11.0) K/uL RBC (4.30-5.90) M/uL Hgb (12.0-16.0) g/dL Hct (36.0-46.0) % MCV (80.0-98.0) fL MCH (27.0-32.0) pg MCHC (31.0-37.0) g/dL RDW Std Deviation (28.0-62.0) fl RDW Coeff of Sylwia (11.0-15.0) % Plt Count (150-400) K/uL MPV (7.40-12.00) fL Neut % (Auto) (48.0-80.0) % Lymph % (Auto) (16.0-40.0) % Nash % (Auto) (0.0-15.0) % Eos % (Auto) (0.0-7.0) % Baso % (Auto) (0.0-1.5) % Neut # (Auto) (1.4-5.7) K/uL Lymph # (Auto) (0.6-2.4) K/uL Nash # (Auto) (0.0-0.8) K/uL Eos # (Auto) (0.0-0.7) K/uL Baso # (Auto) (0.0-0.1) K/uL Nucleated RBC % /100WBC Nucleated RBCs # K/uL INR Sodium 140 (136-145) mmol/L Potassium 3.4 L (3.5-5.1) mmol/L Chloride 109 H (98-107) mmol/L Carbon Dioxide 18.8 L (21.0-32.0) mmol/L BUN 31 H (7.0-18.0) mg/dL Creatinine 1.7 H (0.6-1.0) mg/dL Est Cr Clr Drug Dosing 22.24 Estimated GFR (MDRD) 28.4 ml/min Glucose 90 (74-106) mg/dL Calcium 8.1 L (8.5-10.1) mg/dL Total Bilirubin (0.2-1.0) mg/dL AST (15-37) IU/L ALT (14-63) IU/L Alkaline Phosphatase (46-116) U/L B-Natriuretic Peptide (<100) PG/ML Total Protein (6.4-8.2) g/dL Albumin (3.4-5.0) g/dL Globulin (2.0-3.5) g/dL Albumin/Globulin Ratio (1.3-2.8) Urine Color Urine Appearance Urine pH (5.0-8.0) Ur Specific [place] (1.001-1.035) Urine Protein (NEGATIVE) mg/dL Urine Glucose (UA) (NEGATIVE) mg/dL Urine Ketones (NEGATIVE) mg/dL Urine Occult Blood (NEGATIVE) Urine Nitrite (NEGATIVE) Urine Bilirubin (NEGATIVE) Urine Urobilinogen (<2.0) EU/dL Ur Leukocyte Esterase (NEGATIVE) Urine RBC (0-2/HPF) Urine WBC (0-5/HPF) Ur Epithelial Cells (NONE-FEW) Amorphous Sediment (NEGATIVE) Urine Bacteria (NEGATIVE) Angel Results Last 24 Hours: Microbiology 09/27/17 12:28 Anaerobic Blood Culture - Final Blood - Venous - Lab Draw 09/27/17 12:01 Anaerobic Blood Culture - Final Blood - Venous Med Orders - Current: Current Medications Acetaminophen (Tylenol Extra Strength) 500 mg PO Q6H PRN PRN Reason: Pain Last Admin: 09/28/17 06:47 Dose: 500 mg Aspirin (Halfprin) 81 mg PO DAILY [facility] Bisacodyl (Dulcolax) 10 mg RECTAL DAILY PRN PRN Reason: Constipation Calcitonin [place] (Miacalcin Nasal [place]) 3.7 ml TARSHA DAILY [facility] Carvedilol (Coreg) 12.5 mg PO BID [facility] Last Admin: 09/27/17 20:44 Dose: Not Given Cyclobenzaprine HCl (Flexeril) 5 mg PO BID PRN PRN Reason: muscle spasms,back pain Last Admin: 09/27/17 13:02 Dose: 5 mg Docusate Sodium (Colace) 100 mg PO BID [facility] Last Admin: 09/27/17 20:29 Dose: 100 mg Furosemide (Lasix) 20 mg PO DAILY [facility] Morphine Sulfate (Morphine) 2 mg IVPUSH Q4H PRN PRN Reason: Pain Sodium Chloride (Saline Flush) 10 ml FLUSH ASDIRECTED PRN PRN Reason: Keep Vein Open Sodium Chloride (Saline Flush) 2.5 ml FLUSH ASDIRECTED PRN PRN Reason: Keep Vein Open Spironolactone (Aldactone) 25 mg PO DAILY [facility] Tramadol HCl (Ultram) 50 mg PO BID PRN PRN Reason: Pain Last Admin: 09/27/17 15:16 Dose: 50 mg Vitamin E (Vitamin E) 400 units PO DAILY [facility] Discontinued Medications Heparin Sodium (Porcine) (Heparin Sodium) 5,000 units SUBCUT Q12H [facility] Last Admin: 09/27/17 13:04 Dose: Not Given Sodium Chloride (Normal Saline) 1,000 mls @ 125 mls/hr IV STAT [facility] Stop: 09/27/17 17:30 Last Admin: 09/27/17 10:13 Dose: 125 mls/hr Sodium Chloride (Normal Saline) 1,000 mls @ 75 mls/hr IV ASDIRECTED [facility] Stop: 09/28/17 01:49 Last Admin: 09/27/17 15:11 Dose: 75 mls/hr Morphine Sulfate (Morphine) 2 mg IVPUSH ONETIME ONE Stop: 09/27/17 09:26 Last Admin: 09/27/17 10:13 Dose: 2 mg Ondansetron HCl (Zofran) 4 mg IVPUSH ONETIME ONE Stop: 09/27/17 09:26 Last Admin: 09/27/17 10:13 Dose: 4 mg Potassium Chloride (Klor-Con M20) 20 meq PO ONETIME ONE Stop: 09/28/17 07:24 - Exam General: Alert, Oriented, Cooperative, No Acute Distress Neck: Supple, JVD Lungs: Clear to Auscultation, Normal Respiratory Effort Cardiovascular: Regular Rate, Regular Rhythm GI/Abdominal Exam: Normal Bowel Sounds, Soft, Non-Tender, No Distention Back Exam: Normal Inspection, Full Range of Motion Extremities: Normal Inspection, Normal Range of Motion, Non-Tender, No Pedal Edema, Normal Capillary Refill Neurological: No New Focal Deficit Psy/Mental Status: Alert, Normal Affect, Normal Mood - Problem List & Annotations (1) Back pain SNOMED Code(s): 230181892 Code(s): M54.9 - DORSALGIA, UNSPECIFIED Status: Acute Current Visit: No Qualifiers: Back pain location: low back pain Chronicity: chronic Back pain laterality: right Sciatica presence: without sciatica Qualified Code(s): M54.5 - Low back pain; G89.29 - Other chronic pain (2) HUYEN (acute kidney injury) SNOMED Code(s): 90705206 Code(s): N17.9 - ACUTE KIDNEY FAILURE, UNSPECIFIED Status: Acute Current Visit: Yes (3) Dehydration SNOMED Code(s): 39432982 Code(s): E86.0 - DEHYDRATION Status: Acute Priority: High Current Visit : Yes (4) Compression fracture of L3 lumbar vertebra SNOMED Code(s): 861863628 Code(s): S32.030A - WEDGE COMPRESSION FRACTURE OF THIRD LUMBAR VERTEBRA, INIT Status: Acute Current Visit: No Qualifiers: Encounter type: subsequent encounter Fracture type: closed (5) Hypertension SNOMED Code(s): 33435954 Code(s): I10 - ESSENTIAL (PRIMARY) HYPERTENSION Status: Chronic Priority : Low Current Visit: No Qualifiers: Hypertension type: essential hypertension Qualified Code(s): I10 - Essential (primary) hypertension (6) Pacemaker SNOMED Code(s): 849586322 Code(s): Z95.0 - PRESENCE OF CARDIAC PACEMAKER Status: Chronic Current Visit: No (7) Non-ischemic cardiomyopathy SNOMED Code(s): 60665321 Code(s): I42.8 - OTHER CARDIOMYOPATHIES Status: Chronic Current Visit: Yes (8) 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 SNOMED Code(s): 009800481 Code(s): Z45.010 - ENCNTR FOR CHECKING AND TEST OF CARD PACEMAKER PULSE GNRTR Status: Chronic Current Visit: Yes (9) Sleep apnea SNOMED Code(s): 77271804 Code(s): G47.30 - SLEEP APNEA, UNSPECIFIED Status: Chronic Current Visit : Yes (10) Osteoporosis SNOMED Code(s): 43867501 Code(s): M81.0 - AGE-RELATED OSTEOPOROSIS W/O CURRENT PATHOLOGICAL FRACTURE Status: Chronic Current Visit: Yes (11) Aortic valve regurgitation SNOMED Code(s): 09974911 Code(s): I35.1 - NONRHEUMATIC AORTIC (VALVE) INSUFFICIENCY Status: Chronic Current Visit: Yes Qualifiers: Cardiac valve disease etiology: nonrheumatic Qualified Code(s): I35.1 - Nonrheumatic aortic (valve) insufficiency (12) Mitral valve regurgitation SNOMED Code(s): 83641950 Code(s): I34.0 - NONRHEUMATIC MITRAL (VALVE) INSUFFICIENCY Status: Chronic Current Visit: Yes Qualifiers: Cardiac valve disease etiology: nonrheumatic Qualified Code(s): I34.0 - Nonrheumatic mitral (valve) insufficiency - Problem List Review Problem List Initiated/Reviewed/Updated: Yes - My Orders Last 24 Hours: My Active Orders 09/27/17 12:22 Intake and Output [RC] Q12HR May Shower [RC] ASDIRECTED Oxygen Therapy [RC] PRN Up With Assistance [RC] ASDIRECTED Vital Signs [RC] Q4H Resuscitation Status Routine 09/27/17 12:24 Cyclobenzaprine [Flexeril] 5 mg PO BID PRN Morphine 2 mg IVPUSH Q4H PRN 09/27/17 12:25 Acetaminophen [Tylenol Extra Strength] 500 mg PO Q6H PRN 09/27/17 12:27 Consult to Physical Therapy [PT Evaluation and Treatment] [CONS] Routine 09/27/17 13:12 Bisacodyl [Dulcolax] 10 mg RECTAL DAILY PRN traMADol [Ultram] 50 mg PO BID PRN Heat Therapy [OM.PC] Routine Ice Therapy [OM.PC] Routine SCD [Sequential Compression Device] [OM.PC] Routine 09/27/17 15:50 Hemoccult [Fecal Occult Blood Collection] [RC] ASDIRECTED Hemoccult [OCCULT BLOOD DIAGNOSTIC] [OP] Routine 09/27/17 15:59 Urinary Catheter Assessment [RC] ASDIRECTED 09/27/17 16:00 Insert Nielsen Catheter [Insert Urinary Catheter] [OM.PC] Q24H Notify Provider Consults [RC] ASDIRECTED Consult to Physician [CONS] Routine 09/27/17 16:12 Daily Weight [Height and Weight] [RC] DAILY Intake and Output Strict [RC] Q12H 09/27/17 21:00 Carvedilol [Coreg] 12.5 mg PO BID Docusate Sodium [Colace] 100 mg PO BID 09/27/17 Lunch Clear Liquid Diet [DIET] 09/28/17 09:00 Aspirin [Halfprin] 81 mg PO DAILY Calcitonin ([place]) [Miacalcin Nasal [place]] 3.7 ml TARSHA DAILY Furosemide [Lasix] 20 mg PO DAILY Spironolactone [Aldactone] 25 mg PO DAILY Vitamin E (dl, acetate) [Vitamin E] 400 units PO DAILY 09/29/17 05:11 BMP [BASIC METABOLIC PANEL,BMP] [CHEM] AM CBC WITH AUTO DIFF [HEME] AM - Plan Plan:: This 86 year old female admitted with back pain with some HUYEN with non-ischemic CHF 1. Back pain: Slowly improving. Continue to treat conservatively with Tylenol, Flexeril, Morphine PRN and PT to evaluate and treat. Ice/heat therapy PRN pain. No NSAIDs due to HUYEN. Continue Calcitonin nasal spray. Continues to deny [place] for short term rehabilitation. Reports she has help at home. Will see what PT feels today. It would be beneficial for short term rehabilitation. patient reports she has help at home, but not 24 hours. If anything Home Health will need to be ordered. 2. HUYEN: Improved BUN 31 Cr 1.7. Improved from yesterday with fluids. Discussed with Dr Palmer this morning, he would recommend NS 75 ml/hr to continue today along with continuing Lasix and Spironolactone for now. She likely is slightly dehydrated from not eating well recently. JVD continues, but may be due to TR. 3. Hydropic gallbladder: No leukocytosis today and continued to decline having abdominal pain, and actually feels hungry. Discussed case with Dr Rodrigues, gallbladder findings likely secondary to dehydration and poor appetite recently. Will advance diet and monitor. I appreciate Dr Rodrigues's assistance with this patient. 4. 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 Pacemaker generator to be replaced October 24 in [place]. Will monitor fluids closely, continue Spironolactone and Lasix per Dr Tyrese Rainey renal function daily. Renal ultrasound obtained. Strict I/O, Rowe refused nielsen placement. Daily weights, low salt diet. 5. HTN: BP run low 100-110 SBP normally. Continue Coreg, Hold Losartan due to HUYEN. 6. Anemia: Will add iron studies and peripheral smear to am labwork tomorrow. Pending hemoccult. VTE prophylaxis: Hgb dropped 1 gm since 09/22 in [place]. Check Hemoccult. SCDs for now and monitor If hemoccult neg, start Heparin. Dispo: 1-2 days.
[2017-09-28] MEDS: traMADol 50 MG Tab PO PRN (07:50)
[2017-09-28] MEDS: Calcitonin (Salmon) Nasal Spray 3.7 ML Bottle NAS SCH (08:10)
[2017-09-28] MEDS: Aspirin 81 MG Tab.EC PO SCH (08:11)
[2017-09-28] MEDS: Furosemide 20 MG Tab PO SCH (08:11)
[2017-09-28] MEDS: Spironolactone 25 MG Tab PO SCH (08:11)
[2017-09-28] MEDS: Vitamin E (dl-alpha-tocopherol acetate) 400 Unit Cap PO SCH (08:12)
[2017-09-28] MEDS: Carvedilol 12.5 MG Tab PO SCH ×2 (08:12→20:28)
[2017-09-28] MEDS: Docusate Sodium 100 MG Cap PO SCH ×2 (08:12→20:28)
--- NOTE | 2017-09-28 09:04 | US ---
Renal retroperitoneal ultrasound Clinical history: Acute renal failure Comparison: CT scan dated September 27, 2017 Findings: Pockets of free fluid are present throughout the abdomen. The kidneys are small measuring 1 0.3 cm on the right and 9.7 cm and the left. There is no hydronephrosis or hydroureter. Impression: Small nonobstructive bilateral kidneys. Free fluid in the abdomen.
[2017-09-28] MEDS: Morphine 2 MG/ML Syringe IVPUSH PRN (09:15)
[2017-09-28] MEDS: Sodium Chloride 0.9% 1,000 ML IV SCH (09:16)
[2017-09-28] MEDS: Cyclobenzaprine 5 MG Tab PO PRN (10:48)
[2017-09-29] MEDS: Sodium Chloride 0.9% 1,000 ML IV SCH ×2 (01:35→14:12)
[2017-09-29] MEDS: Cyclobenzaprine 5 MG Tab PO PRN ×2 (08:16→21:21)
[2017-09-29] MEDS: traMADol 50 MG Tab PO PRN ×2 (08:16→21:21)
[2017-09-29] MEDS: Vitamin E (dl-alpha-tocopherol acetate) 400 Unit Cap PO SCH (08:17)
[2017-09-29] MEDS: Carvedilol 12.5 MG Tab PO SCH ×2 (08:18→21:20)
[2017-09-29] MEDS: Spironolactone 25 MG Tab PO SCH (08:18)
[2017-09-29] MEDS: Furosemide 20 MG Tab PO SCH (08:18)
[2017-09-29] MEDS: Docusate Sodium 100 MG Cap PO SCH ×2 (08:18→21:21)
[2017-09-29] MEDS: Aspirin 81 MG Tab.EC PO SCH (08:18)
[2017-09-29] MEDS: Calcitonin (Salmon) Nasal Spray 3.7 ML Bottle NAS SCH (08:19)
--- NOTE | 2017-09-29 09:00 | CONS ---
DATE OF CONSULTATION: DATE OF : 1930 PRIMARY CARE PHYSICIAN: None PCP REASON FOR CONSULTATION: Increasing creatinine and heart failure management. HISTORY: She came back here to the hospital because of very severe back pain, that she was scheduled for a back surgery. However, due to the pacemaker generator at [facility], the surgery has been canceled. When she was in [place] for Electrophysiology evaluation for generator change, the echocardiogram was repeated on September 22, 2017, and it determined that LV ejection fraction was 40. However, the RV seemed to be moderately enlarged as well as a moderately reduced RV systolic function with severe TR as well. At that time, the RV pressure seemed to be 38.4. The generator change was scheduled on October 24, 2017. Currently, when I talked to her, she is in very severe pain. The only thing that she is complaining is back pain. However, she mentioned that her leg swelling is not going up and it seemed to be better. Her breathing is about the same, but she feels tired. When she came into the hospital, her creatinine was increasing to 1.9. Her baseline in June was 0.9. When they checked the creatinine when she was in [place], around a week ago, it was 1.4. Recent cardiac testing, echocardiogram on September 22, 2017, showed ejection fraction possibly of 40%, RV dilatation with moderately reduced RV systolic function with severe TR, and the pacemaker is at [facility], it cannot be reprogrammed and cannot see any episode, so she constantly V-paced 100%. MEDICATIONS: Her home medication includes Lasix 20 mg once a day, as well as Aldactone 25 mg once a day, as well as losartan 50 mg once a day. ALLERGIES: No known drug allergy. PAST MEDICAL HISTORY: Includes mild CAD, nonischemic cardiomyopathy, and dual-chamber pacemaker. SOCIAL HISTORY: Denies smoking. Denies drug use. Occasional alcohol drinking. REVIEW OF SYSTEMS: Except indicated in the HPI, otherwise has been negative. FAMILY HISTORY: Father with history of colon cancer. Mother with history of arthritis. PHYSICAL EXAMINATION: VITAL SIGNS: Initial blood pressure is 97/60, heart rate of 60 to 70s, temperature 36.3, O2 saturation is 98, and respiration is 18. HEENT: Mild dry mouth, pale, no jaundice. NECK: JVD is positive, pulsatile JVD. HEART: Pansystolic murmur. Normal S1, S2. LUNGS: Minimal crackles bilaterally. ABDOMEN: Soft and nontender. Bowel sounds are present. No hepatosplenomegaly. MUSCULOSKELETAL: Legs, very trace edema, seemed to be improved from the last time when I saw her. LABORATORY DATA: Investigation; initial CBC shows hematocrit of 28, hemoglobin of 9.7, and platelets 177. INR is 1.1. Sodium 138, potassium 3.5, chloride 105, bicarb 17, BUN 36, and creatinine 1.9. BNP 1866. Urinalysis is negative for infection. ASSESSMENT AND PLAN: This is an 86-year-old female with history of nonischemic cardiomyopathy, recent ejection fraction of 40%, with severe TR as well as mildly reduced RV systolic function, dual-chamber pacemaker at [facility], anticipating to have a generator change on October 24, 2017. She presented here with severe back pain as well as increasing creatinine. Recommended to have IV hydration to see how her creatinine was doing. She seemed to be prerenal. She has not eaten for a while, and she has lost her appetite. She looks dry to me on the dry side, even though there was a JVD positive. I think that is mostly from severe TR, possibly from the pacemaker lead as well as LV systolic dysfunction possibly due to RV pacing. She is not dependent when I checked her pacemaker in the clinic. She is scheduled to have a generator change on October 24, 2017, and if her creatinine is not improving by IV hydration, I will stop her Aldactone as well as the ALEX inhibitor. I believe her heart failure is well controlled. She is on more the dry side now, her JVD and increasing RV pressure are most likely due to severe TR as well as RV pacing. CORNEL / JOSEPH /[id number]
--- NOTE | 2017-09-29 09:05 | PCM.PN ---
- General Info Date of Service: 09/29/17 Admission Dx/Problem (Free Text): Admission Diagnosis/Problem Admission Diagnosis/Problem Dehydration, back pain Subjective Update: Not feeling safe to return home. Reports she feels she is unlikely to be able to manage caring for herself at home due to back pain. Reports she is starting to feel a little better but continues to have significant back pain. Eating better and drinking fluids. NO chest pain or SOB. Functional Status: Reports: Pain Controlled, Tolerating Diet, Ambulating, Urinating - Review of Systems HEENT: Reports: No Symptoms. Denies: Headaches, Sore Throat, Rhinitis, Visual Changes Pulmonary: Reports: No Symptoms. Denies: Shortness of Breath Cardiovascular: Reports: Dyspnea on Exertion (intermittently). Denies: Chest Pain, Edema Gastrointestinal: Reports: No Symptoms. Denies: Abdominal Pain, Nausea, Vomiting Musculoskeletal: Reports: No Symptoms Skin: Reports: No Symptoms Neurological: Reports: No Symptoms Psychiatric: Reports: No Symptoms - Patient Data Vitals - Most Recent: Last Vital Signs Temp 98.9 F 09/29/17 03:33 Pulse 66 09/29/17 08:18 Resp 18 09/29/17 03:33 BP 106/67 09/29/17 08:18 Pulse Ox 93 L 09/29/17 03:33 Weight - Most Recent: 67.313 kg I&O - Last 24 Hours: Intake & Output 09/28/17 09/29/17 09/29/17 22:59 06:59 14:59 Intake Total 1856 1200 Output Total 450 350 Balance 1406 850 Lab Results Last 24 Hours: Laboratory Results - last 24 hr 09/28/17 09/28/17 09/29/17 Range/Units 05:00 20:00 04:55 WBC 4.76 (4.0-11.0) K/uL RBC 3.25 L (4.30-5.90) M/uL Hgb 9.8 L (12.0-16.0) g/dL Hct 30.4 L (36.0-46.0) % MCV 93.5 (80.0-98.0) fL MCH 30.2 (27.0-32.0) pg MCHC 32.2 (31.0-37.0) g/dL RDW Std Deviation 52.4 (28.0-62.0) fl RDW Coeff of Sylwia 15 (11.0-15.0) % Plt Count 196 (150-400) K/uL MPV 11.10 (7.40-12.00) fL Add Manual Diff YES Neutrophils % (Manual) 54 (48.0-80.0) % Lymphocytes % (Manual) 33 (16.0-40.0) % Atypical Lymphs % 0 Monocytes % (Manual) 12 (0.0-15.0) % Eosinophils % (Manual) 1 (0.0-7.0) % Nucleated RBC % 0.0 /100WBC Absolute Seg Neuts 2.6 (1.4-5.7) Lymphocytes # (Manual) 1.6 (0.6-2.4) Monocytes # (Manual) 0.6 (0.0-0.8) Eosinophils # (Manual) 0.0 (0.0-0.7) Nucleated RBCs # 0 K/uL Smear Path Review SENT TO PATHOLOGY Absolute Retic 96.50 H (20-80) K/uL Percent Retic 3.0 H (0.5-1.5) % Immature Retic Fraction 30 % Lactate 1.5 (0.20-2.00) mmol/L Sodium (136-145) mmol/L Potassium (3.5-5.1) mmol/L Chloride (98-107) mmol/L Carbon Dioxide (21.0-32.0) mmol/L BUN (7.0-18.0) mg/dL Creatinine (0.6-1.0) mg/dL Est Cr Clr Drug Dosing mL/min Estimated GFR (MDRD) ml/min Glucose (74-106) mg/dL Calcium (8.5-10.1) mg/dL Iron (50-175) ug/dL TIBC (250-450) ug/dL % Saturation (20-55) % Transferrin (200-400) ug/dL Ferritin (8-252) ng/mL Vitamin B12 (193-986) pg/mL Folate (8.60-58.90) ng/mL 09/29/17 09/29/17 Range/Units 04:55 04:55 WBC (4.0-11.0) K/uL RBC (4.30-5.90) M/uL Hgb (12.0-16.0) g/dL Hct (36.0-46.0) % MCV (80.0-98.0) fL MCH (27.0-32.0) pg MCHC (31.0-37.0) g/dL RDW Std Deviation (28.0-62.0) fl RDW Coeff of Sylwia (11.0-15.0) % Plt Count (150-400) K/uL MPV (7.40-12.00) fL Add Manual Diff Neutrophils % (Manual) (48.0-80.0) % Lymphocytes % (Manual) (16.0-40.0) % Atypical Lymphs % Monocytes % (Manual) (0.0-15.0) % Eosinophils % (Manual) (0.0-7.0) % Nucleated RBC % /100WBC Absolute Seg Neuts (1.4-5.7) Lymphocytes # (Manual) (0.6-2.4) Monocytes # (Manual) (0.0-0.8) Eosinophils # (Manual) (0.0-0.7) Nucleated RBCs # K/uL Smear Path Review Absolute Retic (20-80) K/uL Percent Retic (0.5-1.5) % Immature Retic Fraction % Lactate (0.20-2.00) mmol/L Sodium 139 (136-145) mmol/L Potassium 3.8 (3.5-5.1) mmol/L Chloride 107 (98-107) mmol/L Carbon Dioxide 18.1 L (21.0-32.0) mmol/L BUN 35 H (7.0-18.0) mg/dL Creatinine 1.9 H (0.6-1.0) mg/dL Est Cr Clr Drug Dosing 19.90 mL/min Estimated GFR (MDRD) 24.9 ml/min Glucose 101 (74-106) mg/dL Calcium 8.3 L (8.5-10.1) mg/dL Iron 25 L (50-175) ug/dL TIBC 260 (250-450) ug/dL % Saturation 9.62 L (20-55) % Transferrin 182 L (200-400) ug/dL Ferritin 84 (8-252) ng/mL Vitamin B12 1252 H (193-986) pg/mL Folate 10.20 (8.60-58.90) ng/mL Angel Results Last 24 Hours: Microbiology 09/27/17 11:57 Urine Culture - Final Urine, Clean Catch MIXED REEMA >100,000 CFU/ML 09/27/17 12:01 Aerobic Blood Culture - Preliminary Blood - Venous NO GROWTH AFTER 1 DAY Anaerobic Blood Culture - Final 09/27/17 12:28 Aerobic Blood Culture - Preliminary Blood - Venous - Lab Draw NO GROWTH AFTER 1 DAY Anaerobic Blood Culture - Final Med Orders - Current: Current Medications Acetaminophen (Tylenol Extra Strength) 500 mg PO Q6H PRN PRN Reason: Pain Last Admin: 09/28/17 13:31 Dose: 500 mg Aspirin (Halfprin) 81 mg PO DAILY REPLACED BY [facility] Last Admin: 09/29/17 08:18 Dose: 81 mg Bisacodyl (Dulcolax) 10 mg RECTAL DAILY PRN PRN Reason: Constipation Calcitonin [place] (Miacalcin Nasal [place]) 3.7 ml TARSHA DAILY REPLACED BY [facility] Last Admin: 09/29/17 08:19 Dose: Not Given Carvedilol (Coreg) 12.5 mg PO BID REPLACED BY [facility] Last Admin: 09/29/17 08:18 Dose: 12.5 mg Cyclobenzaprine HCl (Flexeril) 5 mg PO BID PRN PRN Reason: muscle spasms,back pain Last Admin: 09/29/17 08:16 Dose: 5 mg Docusate Sodium (Colace) 100 mg PO BID REPLACED BY [facility] Last Admin: 09/29/17 08:18 Dose: 100 mg Furosemide (Lasix) 20 mg PO DAILY REPLACED BY [facility] Last Admin: 09/29/17 08:18 Dose: 20 mg Sodium Chloride (Normal Saline) 1,000 mls @ 75 mls/hr IV ASDIRECTED REPLACED BY [facility] Last Admin: 09/29/17 01:35 Dose: 75 mls/hr Morphine Sulfate (Morphine) 2 mg IVPUSH Q4H PRN PRN Reason: Pain Last Admin: 09/28/17 09:15 Dose: 2 mg Sodium Chloride (Saline Flush) 10 ml FLUSH ASDIRECTED PRN PRN Reason: Keep Vein Open Sodium Chloride (Saline Flush) 2.5 ml FLUSH ASDIRECTED PRN PRN Reason: Keep Vein Open Spironolactone (Aldactone) 25 mg PO DAILY REPLACED BY [facility] Last Admin: 09/29/17 08:18 Dose: 25 mg Tramadol HCl (Ultram) 50 mg PO BID PRN PRN Reason: Pain Last Admin: 09/29/17 08:16 Dose: 50 mg Vitamin E (Vitamin E) 400 units PO DAILY REPLACED BY [facility] Last Admin: 09/29/17 08:17 Dose: 400 units Discontinued Medications Heparin Sodium (Porcine) (Heparin Sodium) 5,000 units SUBCUT Q12H REPLACED BY [facility] Last Admin: 09/27/17 13:04 Dose: Not Given Sodium Chloride (Normal Saline) 1,000 mls @ 125 mls/hr IV STAT REPLACED BY [facility] Stop: 09/27/17 17:30 Last Admin: 09/27/17 10:13 Dose: 125 mls/hr Sodium Chloride (Normal Saline) 1,000 mls @ 75 mls/hr IV ASDIRECTED REPLACED BY [facility] Stop: 09/28/17 01:49 Last Admin: 09/27/17 15:11 Dose: 75 mls/hr Morphine Sulfate (Morphine) 2 mg IVPUSH ONETIME ONE Stop: 09/27/17 09:26 Last Admin: 09/27/17 10:13 Dose: 2 mg Ondansetron HCl (Zofran) 4 mg IVPUSH ONETIME ONE Stop: 09/27/17 09:26 Last Admin: 09/27/17 10:13 Dose: 4 mg Potassium Chloride (Klor-Con M20) 20 meq PO ONETIME ONE Stop: 09/28/17 07:24 Last Admin: 09/28/17 07:49 Dose: 20 meq - Exam Quality Assessment: DVT Prophylaxis. No: Supplemental Oxygen General: Alert, Oriented, Cooperative, No Acute Distress Neck: Supple Lungs: Clear to Auscultation, Normal Respiratory Effort Cardiovascular: Regular Rate, Regular Rhythm GI/Abdominal Exam: Normal Bowel Sounds, Soft, Non-Tender, No Organomegaly, No Distention, No Abnormal Bruit, No Mass, Pelvis Stable Back Exam: Normal Inspection, Decreased Range of Motion (due to pain, but does move fairly well. No vertebral tenderness.) Extremities: Normal Inspection, Normal Range of Motion, Non-Tender, No Pedal Edema, Normal Capillary Refill Neurological: No New Focal Deficit Psy/Mental Status: Alert, Normal Affect, Normal Mood - Problem List & Annotations (1) Back pain SNOMED Code(s): 062408585 Code(s): M54.9 - DORSALGIA, UNSPECIFIED Status: Acute Current Visit: No Qualifiers: Back pain location: low back pain Chronicity: chronic Back pain laterality: right Sciatica presence: without sciatica Qualified Code(s): M54.5 - Low back pain; G89.29 - Other chronic pain (2) HUYEN (acute kidney injury) SNOMED Code(s): 33593375 Code(s): N17.9 - ACUTE KIDNEY FAILURE, UNSPECIFIED Status: Acute Current Visit: Yes (3) Dehydration SNOMED Code(s): 76130548 Code(s): E86.0 - DEHYDRATION Status: Acute Priority: High Current Visit : Yes (4) Compression fracture of L3 lumbar vertebra SNOMED Code(s): 810492393 Code(s): S32.030A - WEDGE COMPRESSION FRACTURE OF THIRD LUMBAR VERTEBRA, INIT Status: Acute Current Visit: No Qualifiers: Encounter type: subsequent encounter Fracture type: closed (5) Hypertension SNOMED Code(s): 28696829 Code(s): I10 - ESSENTIAL (PRIMARY) HYPERTENSION Status: Chronic Priority : Low Current Visit: No Qualifiers: Hypertension type: essential hypertension Qualified Code(s): I10 - Essential (primary) hypertension (6) Pacemaker SNOMED Code(s): 178651451 Code(s): Z95.0 - PRESENCE OF CARDIAC PACEMAKER Status: Chronic Current Visit: No (7) Non-ischemic cardiomyopathy SNOMED Code(s): 65471686 Code(s): I42.8 - OTHER CARDIOMYOPATHIES Status: Chronic Current Visit: Yes (8) 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 SNOMED Code(s): 468736179 Code(s): Z45.010 - ENCNTR FOR CHECKING AND TEST OF CARD PACEMAKER PULSE GNRTR Status: Chronic Current Visit: Yes (9) Sleep apnea SNOMED Code(s): 74949621 Code(s): G47.30 - SLEEP APNEA, UNSPECIFIED Status: Chronic Current Visit : Yes (10) Osteoporosis SNOMED Code(s): 67371906 Code(s): M81.0 - AGE-RELATED OSTEOPOROSIS W/O CURRENT PATHOLOGICAL FRACTURE Status: Chronic Current Visit: Yes (11) Aortic valve regurgitation SNOMED Code(s): 78813112 Code(s): I35.1 - NONRHEUMATIC AORTIC (VALVE) INSUFFICIENCY Status: Chronic Current Visit: Yes Qualifiers: Cardiac valve disease etiology: nonrheumatic Qualified Code(s): I35.1 - Nonrheumatic aortic (valve) insufficiency (12) Mitral valve regurgitation SNOMED Code(s): 27719345 Code(s): I34.0 - NONRHEUMATIC MITRAL (VALVE) INSUFFICIENCY Status: Chronic Current Visit: Yes Qualifiers: Cardiac valve disease etiology: nonrheumatic Qualified Code(s): I34.0 - Nonrheumatic mitral (valve) insufficiency - Problem List Review Problem List Initiated/Reviewed/Updated: Yes - My Orders Last 24 Hours: My Active Orders 09/28/17 08:30 Sodium Chloride 0.9% [Normal Saline] 1,000 ml IV ASDIRECTED 09/28/17 09:00 Aspirin [Halfprin] 81 mg PO DAILY Calcitonin ([place]) [Miacalcin Nasal [place]] 3.7 ml TARSHA DAILY Furosemide [Lasix] 20 mg PO DAILY Spironolactone [Aldactone] 25 mg PO DAILY Vitamin E (dl, acetate) [Vitamin E] 400 units PO DAILY 09/29/17 09:04 Patient Status [ADT] Routine - Plan Plan:: This 86 year old female admitted with back pain with some HUYEN with non-ischemic CHF 1. Back pain: Slowly improving. Continue to treat conservatively with Tylenol, Flexeril, Morphine PRN and PT to evaluate and treat. Ice/heat therapy PRN pain. No NSAIDs due to HUYEN. Continue Calcitonin nasal spray. Today she confirms she feels she is unable to make it at home per self. Will arrange [facility] placement. 2. HUYEN: BUN 35 Cr 1.9 today, slight increase from yesterday. Keep NS 75 ml/hr to continue today along with continuing Lasix. Will stop Aldactone and ARB per Dr Palmer's recommendations. He will reassess as outpatient. 3. 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 Pacemaker generator to be replaced October 24 in [place]. Will monitor fluids closely, continue Spironolactone and Lasix per Dr Tyrese Rainey renal function daily. Renal ultrasound obtained. Strict I/O, [place] refused nielsen placement. Daily weights, low salt diet. 4. HTN: BP run low 100-110 SBP normally. Continue Coreg. Stop Losartan 5. Anemia: Iron studies revealed mixed picture of iron deficiency and anemia of chronic disease. Will supplement IV iron today and start oral VTE prophylaxis: Hgb dropped 1 gm since 09/22 in [place]. Check Hemoccult. SCDs for now and monitor If hemoccult neg, start Heparin. Dispo: change to inpatient due to HUYEN and continue IV hydration and medical management of CHF and HUYEN. Also will be transferred to [facility] on Monday for short term rehabilitation due to back pain and the inability to care for herself.
[2017-09-29] MEDS ORDERED: Iron Sucrose Complex 200 MG in Sodium Chloride 0.9% 100 ML IV ONE (10:56)
[2017-09-29] MEDS: Iron Polysaccharides Complex 150 MG Cap PO SCH (12:02)
[2017-09-29] MEDS: Morphine 2 MG/ML Syringe IVPUSH PRN (16:04)
--- NOTE | 2017-09-30 08:20 | PCM.PN ---
- General Info Date of Service: 09/30/17 - Review of Systems Systems Review Comment:: reports back pain, stable - Patient Data Vitals - Most Recent: Last Vital Signs Temp 37.0 C 09/30/17 04:00 Pulse 69 09/30/17 04:00 Resp 16 09/30/17 04:00 BP 95/56 L 09/30/17 04:00 Pulse Ox 94 L 09/30/17 04:00 Weight - Most Recent: 70 kg I&O - Last 24 Hours: Intake & Output 09/29/17 09/30/17 09/30/17 22:59 06:59 14:59 Intake Total 924 1460 Output Total 470 400 Balance 454 1060 Lab Results Last 24 Hours: Laboratory Results - last 24 hr 09/30/17 09/30/17 Range/Units 05:24 05:24 WBC 6.28 (4.0-11.0) K/uL RBC 3.24 L (4.30-5.90) M/uL Hgb 9.7 L (12.0-16.0) g/dL Hct 30.2 L (36.0-46.0) % MCV 93.2 (80.0-98.0) fL MCH 29.9 (27.0-32.0) pg MCHC 32.1 (31.0-37.0) g/dL RDW Std Deviation 53.0 (28.0-62.0) fl RDW Coeff of Sylwia 16 H (11.0-15.0) % Plt Count 193 (150-400) K/uL MPV 11.30 (7.40-12.00) fL Add Manual Diff YES Neutrophils % (Manual) 71 (48.0-80.0) % Band Neutrophils % 2 % Lymphocytes % (Manual) 20 (16.0-40.0) % Monocytes % (Manual) 7 (0.0-15.0) % Nucleated RBC % 0.6 /100WBC Absolute Seg Neuts 4.5 (1.4-5.7) Band Neutrophils # 0.1 Lymphocytes # (Manual) 1.3 (0.6-2.4) Monocytes # (Manual) 0.4 (0.0-0.8) Nucleated RBCs # 0 K/uL Sodium 138 (136-145) mmol/L Potassium 3.8 (3.5-5.1) mmol/L Chloride 106 (98-107) mmol/L Carbon Dioxide 17.3 L (21.0-32.0) mmol/L BUN 32 H (7.0-18.0) mg/dL Creatinine 1.6 H (0.6-1.0) mg/dL Est Cr Clr Drug Dosing 23.63 mL/min Estimated GFR (MDRD) 30.4 ml/min Glucose 113 H (74-106) mg/dL Calcium 8.3 L (8.5-10.1) mg/dL Angel Results Last 24 Hours: Microbiology 09/29/17 16:45 Stool Occult Blood (ANGEL) - Final Stool / Feces NEGATIVE OCCULT BLOOD 09/27/17 12:01 Aerobic Blood Culture - Preliminary Blood - Venous NO GROWTH AFTER 2 DAYS Anaerobic Blood Culture - Final 09/27/17 12:28 Aerobic Blood Culture - Preliminary Blood - Venous - Lab Draw NO GROWTH AFTER 2 DAYS Anaerobic Blood Culture - Final 09/27/17 11:57 Urine Culture - Final Urine, Clean Catch MIXED REEMA >100,000 CFU/ML Med Orders - Current: Current Medications Acetaminophen (Tylenol Extra Strength) 500 mg PO Q6H PRN PRN Reason: Pain Last Admin: 09/28/17 13:31 Dose: 500 mg Aspirin (Halfprin) 81 mg PO DAILY [facility] Last Admin: 09/29/17 08:18 Dose: 81 mg Bisacodyl (Dulcolax) 10 mg RECTAL DAILY PRN PRN Reason: Constipation Last Admin: 09/29/17 14:23 Dose: 10 mg Calcitonin [place] (Miacalcin Nasal [place]) 3.7 ml TARSHA DAILY [facility] Last Admin: 09/29/17 08:19 Dose: Not Given Carvedilol (Coreg) 12.5 mg PO BID [facility] Last Admin: 09/29/17 21:20 Dose: Not Given Cyclobenzaprine HCl (Flexeril) 5 mg PO BID PRN PRN Reason: muscle spasms,back pain Last Admin: 09/29/17 21:21 Dose: 5 mg Docusate Sodium (Colace) 100 mg PO BID [facility] Last Admin: 09/29/17 21:21 Dose: 100 mg Furosemide (Lasix) 20 mg PO DAILY [facility] Last Admin: 09/29/17 08:18 Dose: 20 mg Sodium Chloride (Normal Saline) 1,000 mls @ 75 mls/hr IV ASDIRECTED [facility] Last Infusion: 09/30/17 04:17 Dose: Infused Morphine Sulfate (Morphine) 2 mg IVPUSH Q4H PRN PRN Reason: Pain Last Admin: 09/29/17 16:04 Dose: 2 mg Polysaccharide Iron Complex (Ferrex 150) 150 mg PO DAILY [facility] Last Admin: 09/29/17 12:02 Dose: 150 mg Sodium Chloride (Saline Flush) 10 ml FLUSH ASDIRECTED PRN PRN Reason: Keep Vein Open Sodium Chloride (Saline Flush) 2.5 ml FLUSH ASDIRECTED PRN PRN Reason: Keep Vein Open Tramadol HCl (Ultram) 50 mg PO BID PRN PRN Reason: Pain Last Admin: 09/29/17 21:21 Dose: 50 mg Vitamin E (Vitamin E) 400 units PO DAILY [facility] Last Admin: 09/29/17 08:17 Dose: 400 units Discontinued Medications Heparin Sodium (Porcine) (Heparin Sodium) 5,000 units SUBCUT Q12H [facility] Last Admin: 09/27/17 13:04 Dose: Not Given Sodium Chloride (Normal Saline) 1,000 mls @ 125 mls/hr IV STAT [facility] Stop: 09/27/17 17:30 Last Admin: 09/27/17 10:13 Dose: 125 mls/hr Sodium Chloride (Normal Saline) 1,000 mls @ 75 mls/hr IV ASDIRECTED [facility] Stop: 09/28/17 01:49 Last Admin: 09/27/17 15:11 Dose: 75 mls/hr Iron Sucrose 200 mg/ Sodium (Chloride) 110 mls @ 400 mls/hr IV ONETIME ONE Stop: 09/29/17 11:11 Last Admin: 09/29/17 12:07 Dose: 400 mls/hr Morphine Sulfate (Morphine) 2 mg IVPUSH ONETIME ONE Stop: 09/27/17 09:26 Last Admin: 09/27/17 10:13 Dose: 2 mg Ondansetron HCl (Zofran) 4 mg IVPUSH ONETIME ONE Stop: 09/27/17 09:26 Last Admin: 09/27/17 10:13 Dose: 4 mg Potassium Chloride (Klor-Con M20) 20 meq PO ONETIME ONE Stop: 09/28/17 07:24 Last Admin: 09/28/17 07:49 Dose: 20 meq Spironolactone (Aldactone) 25 mg PO DAILY [facility] Last Admin: 09/29/17 08:18 Dose: 25 mg - Exam General: Alert, Oriented Lungs: Clear to Auscultation, Normal Respiratory Effort Cardiovascular: Regular Rate, Regular Rhythm GI/Abdominal Exam: Soft, Non-Tender Back Exam: No: Paraspinal Tenderness, Vertebral Tenderness Skin: Warm, Dry, Intact Neurological: No New Focal Deficit - Problem List Review Problem List Initiated/Reviewed/Updated: Yes - My Orders Last 24 Hours: My Active Orders 10/01/17 05:11 BASIC METABOLIC PANEL,BMP [CHEM] AM CBC WITH AUTO DIFF [HEME] AM 10/02/17 05:11 BASIC METABOLIC PANEL,BMP [CHEM] AM CBC WITH AUTO DIFF [HEME] AM 10/03/17 05:11 BASIC METABOLIC PANEL,BMP [CHEM] AM CBC WITH AUTO DIFF [HEME] AM - Plan Plan:: This 86 year old female admitted with back pain with some HUYEN with non-ischemic CHF 1. Back pain: continue pain management and PT. discharge to [facility] on monday. Continue to treat conservatively with Tylenol, Flexeril, Morphine PRN and PT to evaluate and treat. Ice/heat therapy PRN pain. No NSAIDs due to HUYEN. Continue Calcitonin nasal spray. Today she confirms she feels she is unable to make it at home per self. Will arrange [place] placement. 2. HUYEN: BUN 35 Cr 1.6 today, on NS and lasix, holding losartan 3. 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 on NS and lasix 4. HTN: BP run low 100-110 SBP normally. Continue Coreg. Stop Losartan 5. Anemia: on iron supplementation
[2017-09-30] MEDS: Cyclobenzaprine 5 MG Tab PO PRN (08:47)
[2017-09-30] MEDS: Aspirin 81 MG Tab.EC PO SCH (08:47)
[2017-09-30] MEDS: Docusate Sodium 100 MG Cap PO SCH ×2 (08:47→20:33)
[2017-09-30] MEDS: Vitamin E (dl-alpha-tocopherol acetate) 400 Unit Cap PO SCH (08:47)
[2017-09-30] MEDS: Iron Polysaccharides Complex 150 MG Cap PO SCH (08:47)
[2017-09-30] MEDS: traMADol 50 MG Tab PO PRN (08:48)
[2017-09-30] MEDS: Calcitonin (Salmon) Nasal Spray 3.7 ML Bottle NAS SCH (08:49)
[2017-09-30] MEDS: Carvedilol 12.5 MG Tab PO SCH ×2 (09:11→20:36)
[2017-09-30] MEDS: Furosemide 20 MG Tab PO SCH (09:12)
--- NOTE | 2017-09-30 11:06 | PCM.PN ---
- General Info Date of Service: 09/29/17 Admission Dx/Problem (Free Text): 86F with NICM EF 40% mild CAD, SSS s/p cual chamber PPM RV dysfunction with severe TR, with severe back pain. HUYEN prerenal. Subjective Update: Since admission, her Cr seemed to be improved after gentle hydration, overall, she looked less dry and better, her leg swelling seemed to be trace does not not look worse. Her appetite is poor. Functional Status: Reports: Pain Controlled, Tolerating Diet - Review of Systems General: Reports: Weakness, Fatigue HEENT: Reports: No Symptoms Pulmonary: Reports: Shortness of Breath Cardiovascular: Reports: No Symptoms Gastrointestinal: Reports: No Symptoms Genitourinary: Reports: No Symptoms Musculoskeletal: Reports: Back Pain - Patient Data Vitals - Most Recent: Last Vital Signs Temp 36.6 C 09/30/17 08:00 Pulse 65 09/30/17 09:11 Resp 16 09/30/17 08:00 BP 94/54 L 09/30/17 09:11 Pulse Ox 93 L 09/30/17 08:00 Weight - Most Recent: 70 kg I&O - Last 24 Hours: Intake & Output 09/29/17 09/30/17 09/30/17 22:59 06:59 14:59 Intake Total 924 1460 Output Total 470 400 Balance 454 1060 Lab Results Last 24 Hours: Laboratory Results - last 24 hr 09/30/17 09/30/17 Range/Units 05:24 05:24 WBC 6.28 (4.0-11.0) K/uL RBC 3.24 L (4.30-5.90) M/uL Hgb 9.7 L (12.0-16.0) g/dL Hct 30.2 L (36.0-46.0) % MCV 93.2 (80.0-98.0) fL MCH 29.9 (27.0-32.0) pg MCHC 32.1 (31.0-37.0) g/dL RDW Std Deviation 53.0 (28.0-62.0) fl RDW Coeff of Sylwia 16 H (11.0-15.0) % Plt Count 193 (150-400) K/uL MPV 11.30 (7.40-12.00) fL Add Manual Diff YES Neutrophils % (Manual) 71 (48.0-80.0) % Band Neutrophils % 2 % Lymphocytes % (Manual) 20 (16.0-40.0) % Monocytes % (Manual) 7 (0.0-15.0) % Nucleated RBC % 0.6 /100WBC Absolute Seg Neuts 4.5 (1.4-5.7) Band Neutrophils # 0.1 Lymphocytes # (Manual) 1.3 (0.6-2.4) Monocytes # (Manual) 0.4 (0.0-0.8) Nucleated RBCs # 0 K/uL Sodium 138 (136-145) mmol/L Potassium 3.8 (3.5-5.1) mmol/L Chloride 106 (98-107) mmol/L Carbon Dioxide 17.3 L (21.0-32.0) mmol/L BUN 32 H (7.0-18.0) mg/dL Creatinine 1.6 H (0.6-1.0) mg/dL Est Cr Clr Drug Dosing 23.63 mL/min Estimated GFR (MDRD) 30.4 ml/min Glucose 113 H (74-106) mg/dL Calcium 8.3 L (8.5-10.1) mg/dL Angel Results Last 24 Hours: Microbiology 09/29/17 16:45 Stool Occult Blood (ANGEL) - Final Stool / Feces NEGATIVE OCCULT BLOOD 09/27/17 12:01 Aerobic Blood Culture - Preliminary Blood - Venous NO GROWTH AFTER 2 DAYS Anaerobic Blood Culture - Final 09/27/17 12:28 Aerobic Blood Culture - Preliminary Blood - Venous - Lab Draw NO GROWTH AFTER 2 DAYS Anaerobic Blood Culture - Final 09/27/17 11:57 Urine Culture - Final Urine, Clean Catch MIXED REEMA >100,000 CFU/ML Med Orders - Current: Current Medications Acetaminophen (Tylenol Extra Strength) 500 mg PO Q6H PRN PRN Reason: Pain Last Admin: 09/28/17 13:31 Dose: 500 mg Aspirin (Halfprin) 81 mg PO DAILY [facility] Last Admin: 09/30/17 08:47 Dose: 81 mg Bisacodyl (Dulcolax) 10 mg RECTAL DAILY PRN PRN Reason: Constipation Last Admin: 09/29/17 14:23 Dose: 10 mg Calcitonin [place] (Miacalcin Nasal [place]) 0 ml TARSHA Q2D@0900 [facility] Last Admin: 09/30/17 08:49 Dose: 1 spray Calcitonin [place] (Miacalcin Nasal [place]) 0 ml TARSHA Q2D@0900 [facility] Carvedilol (Coreg) 12.5 mg PO BID [facility] Last Admin: 09/30/17 09:11 Dose: Not Given Cyclobenzaprine HCl (Flexeril) 5 mg PO BID PRN PRN Reason: muscle spasms,back pain Last Admin: 09/30/17 08:47 Dose: 5 mg Docusate Sodium (Colace) 100 mg PO BID [facility] Last Admin: 09/30/17 08:47 Dose: 100 mg Furosemide (Lasix) 20 mg PO DAILY [facility] Last Admin: 09/30/17 09:12 Dose: 20 mg Sodium Chloride (Normal Saline) 1,000 mls @ 75 mls/hr IV ASDIRECTED [facility] Last Infusion: 09/30/17 04:17 Dose: Infused Morphine Sulfate (Morphine) 2 mg IVPUSH Q4H PRN PRN Reason: Pain Last Admin: 09/29/17 16:04 Dose: 2 mg Polysaccharide Iron Complex (Ferrex 150) 150 mg PO DAILY [facility] Last Admin: 09/30/17 08:47 Dose: 150 mg Sodium Chloride (Saline Flush) 10 ml FLUSH ASDIRECTED PRN PRN Reason: Keep Vein Open Sodium Chloride (Saline Flush) 2.5 ml FLUSH ASDIRECTED PRN PRN Reason: Keep Vein Open Tramadol HCl (Ultram) 50 mg PO BID PRN PRN Reason: Pain Last Admin: 09/30/17 08:48 Dose: 50 mg Vitamin E (Vitamin E) 400 units PO DAILY [facility] Last Admin: 09/30/17 08:47 Dose: 400 units Discontinued Medications Calcitonin [place] (Miacalcin Nasal [place]) 3.7 ml TARSHA DAILY [facility] Last Admin: 09/29/17 08:19 Dose: Not Given Heparin Sodium (Porcine) (Heparin Sodium) 5,000 units SUBCUT Q12H [facility] Last Admin: 09/27/17 13:04 Dose: Not Given Sodium Chloride (Normal Saline) 1,000 mls @ 125 mls/hr IV STAT [facility] Stop: 09/27/17 17:30 Last Admin: 09/27/17 10:13 Dose: 125 mls/hr Sodium Chloride (Normal Saline) 1,000 mls @ 75 mls/hr IV ASDIRECTED [facility] Stop: 09/28/17 01:49 Last Admin: 09/27/17 15:11 Dose: 75 mls/hr Iron Sucrose 200 mg/ Sodium (Chloride) 110 mls @ 400 mls/hr IV ONETIME ONE Stop: 09/29/17 11:11 Last Admin: 09/29/17 12:07 Dose: 400 mls/hr Morphine Sulfate (Morphine) 2 mg IVPUSH ONETIME ONE Stop: 09/27/17 09:26 Last Admin: 09/27/17 10:13 Dose: 2 mg Ondansetron HCl (Zofran) 4 mg IVPUSH ONETIME ONE Stop: 09/27/17 09:26 Last Admin: 09/27/17 10:13 Dose: 4 mg Potassium Chloride (Klor-Con M20) 20 meq PO ONETIME ONE Stop: 09/28/17 07:24 Last Admin: 09/28/17 07:49 Dose: 20 meq Spironolactone (Aldactone) 25 mg PO DAILY [facility] Last Admin: 09/29/17 08:18 Dose: 25 mg - Exam General: Alert, Oriented Lungs: Rales Cardiovascular: Regular Rate, Regular Rhythm GI/Abdominal Exam: Normal Bowel Sounds Back Exam: Muscle Spasm Extremities: Pedal Edema EKG INTERPRETATION Rhythm: NSR - Problem List Review Problem List Initiated/Reviewed/Updated: Yes - Plan Plan:: 86F with SSS NICM EF 40% s/p dual pacemaker chamber, severe back pain with severe TR, with RV dysfunction. with HUYEN, severe back pain 1. severe back pain PT/OT/pain control: most likely tranferred to rehab this Monday. 2. HUYEN: now hanging in 1.6-1.9 seemed to be improving after hydration, recommend stop ACEI, Aldactone. Gentle hydration while on lasix PO 3. NICM/severe tr, mild RV dilatation RV dysfunction: possibly from 100% RV pacing mode. Due to the pacemaker battery will be (end of life) this October, she will need to go to [facility] in [place], for generator change. She is scheduled to have procedure done on 10/24. I emphasized to he she need to have this done, do not forget about it. The patient sometimes is not very reliable. Because the pacemker she had now is very old model, and when it is about to , it automatically paces the RV 100% of the time and cannot reprogrammed, this could lead to RV dysfunction RV failure, (from dyssynchrony). If she had the new model of the pacemaker, her RV dynamic will be improved. The severe TR is combination of RV lead, as well as RV dysfunction, the JVD will be always positive due to severe TR. Clinically, she looked on the dry side to me and she is improved with the hydration. I have spoken with Dr. Hawk EPS service in [place], and he was aware of her admission now and possible rehab transfer. - gen change in [place] 10/24/2017
[2017-09-30] MEDS: Sodium Chloride 0.9% 1,000 ML IV SCH (20:35)
[2017-10-01] MEDS: Morphine 2 MG/ML Syringe IVPUSH PRN ×2 (03:37→20:49)
[2017-10-01] MEDS: traMADol 50 MG Tab PO PRN (08:09)
[2017-10-01] MEDS: Carvedilol 12.5 MG Tab PO SCH ×2 (08:11→20:50)
[2017-10-01] MEDS: Iron Polysaccharides Complex 150 MG Cap PO SCH (08:11)
[2017-10-01] MEDS: Furosemide 20 MG Tab PO SCH (08:11)
[2017-10-01] MEDS: Docusate Sodium 100 MG Cap PO SCH ×2 (08:11→20:50)
[2017-10-01] MEDS: Vitamin E (dl-alpha-tocopherol acetate) 400 Unit Cap PO SCH (08:11)
[2017-10-01] MEDS: Aspirin 81 MG Tab.EC PO SCH (08:12)
[2017-10-01] MEDS: Acetaminophen 500 MG Tab PO PRN (08:27)
[2017-10-01] MEDS ORDERED: Calcitonin (Salmon) Nasal Spray 3.7 ML Bottle NAS SCH (09:00)
[2017-10-01] MEDS: Sodium Chloride 0.9% 1,000 ML IV SCH (09:38)
--- NOTE | 2017-10-01 10:38 | PCM.PN ---
- General Info Date of Service: 10/01/17 Subjective Update: continues to complain of ongoing back pain, no new complaints. - Review of Systems General: Reports: No Symptoms HEENT: Reports: No Symptoms Pulmonary: Reports: No Symptoms Cardiovascular: Reports: No Symptoms Gastrointestinal: Reports: No Symptoms Genitourinary: Reports: No Symptoms Musculoskeletal: Reports: No Symptoms Skin: Reports: No Symptoms Neurological: Reports: No Symptoms Psychiatric: Reports: No Symptoms - Patient Data Vitals - Most Recent: Last Vital Signs Temp 38.3 C H 10/01/17 08:27 Pulse 67 10/01/17 08:11 Resp 18 10/01/17 08:00 BP 134/74 10/01/17 08:11 Pulse Ox 96 10/01/17 08:00 Weight - Most Recent: 71.622 kg I&O - Last 24 Hours: Intake & Output 09/30/17 10/01/17 10/01/17 22:59 06:59 14:59 Intake Total 500 1200 Output Total 400 500 Balance 100 700 Lab Results Last 24 Hours: Laboratory Results - last 24 hr 10/01/17 10/01/17 Range/Units 05:27 05:27 WBC 6.96 (4.0-11.0) K/uL RBC 3.23 L (4.30-5.90) M/uL Hgb 9.9 L (12.0-16.0) g/dL Hct 30.2 L (36.0-46.0) % MCV 93.5 (80.0-98.0) fL MCH 30.7 (27.0-32.0) pg MCHC 32.8 (31.0-37.0) g/dL RDW Std Deviation 53.2 (28.0-62.0) fl RDW Coeff of Sylwia 16 H (11.0-15.0) % Plt Count 208 (150-400) K/uL MPV 11.00 (7.40-12.00) fL Neut % (Auto) 62.3 (48.0-80.0) % Lymph % (Auto) 20.7 (16.0-40.0) % [place] % (Auto) 15.1 H (0.0-15.0) % Eos % (Auto) 1.6 (0.0-7.0) % Baso % (Auto) 0.3 (0.0-1.5) % Neut # (Auto) 4.3 (1.4-5.7) K/uL Lymph # (Auto) 1.4 (0.6-2.4) K/uL [place] # (Auto) 1.1 H (0.0-0.8) K/uL Eos # (Auto) 0.1 (0.0-0.7) K/uL Baso # (Auto) 0.0 (0.0-0.1) K/uL Nucleated RBC % 0.0 /100WBC Nucleated RBCs # 0 K/uL Sodium 139 (136-145) mmol/L Potassium 3.7 (3.5-5.1) mmol/L Chloride 107 (98-107) mmol/L Carbon Dioxide 17.3 L (21.0-32.0) mmol/L BUN 30 H (7.0-18.0) mg/dL Creatinine 1.5 H (0.6-1.0) mg/dL Est Cr Clr Drug Dosing 25.21 mL/min Estimated GFR (MDRD) 32.8 ml/min Glucose 109 H (74-106) mg/dL Calcium 8.2 L (8.5-10.1) mg/dL Angel Results Last 24 Hours: Microbiology 09/27/17 12:01 Aerobic Blood Culture - Preliminary Blood - Venous NO GROWTH AFTER 3 DAYS Anaerobic Blood Culture - Final 09/27/17 12:28 Aerobic Blood Culture - Preliminary Blood - Venous - Lab Draw NO GROWTH AFTER 3 DAYS Anaerobic Blood Culture - Final Med Orders - Current: Current Medications Acetaminophen (Tylenol Extra Strength) 500 mg PO Q6H PRN PRN Reason: Pain Last Admin: 10/01/17 08:27 Dose: 500 mg Aspirin (Halfprin) 81 mg PO DAILY [facility] Last Admin: 10/01/17 08:12 Dose: 81 mg Bisacodyl (Dulcolax) 10 mg RECTAL DAILY PRN PRN Reason: Constipation Last Admin: 09/29/17 14:23 Dose: 10 mg Calcitonin [place] (Miacalcin Nasal [place]) 0 ml TARSHA Q2D@0900 [facility] Last Admin: 09/30/17 08:49 Dose: 1 spray Calcitonin [place] (Miacalcin Nasal [place]) 0 ml TARSHA Q2D@0900 [facility] Last Admin: 10/01/17 09:50 Dose: Not Given Carvedilol (Coreg) 12.5 mg PO BID [facility] Last Admin: 10/01/17 08:11 Dose: 12.5 mg Cyclobenzaprine HCl (Flexeril) 5 mg PO BID PRN PRN Reason: muscle spasms,back pain Last Admin: 09/30/17 08:47 Dose: 5 mg Docusate Sodium (Colace) 100 mg PO BID [facility] Last Admin: 10/01/17 08:11 Dose: 100 mg Furosemide (Lasix) 20 mg PO DAILY [facility] Last Admin: 10/01/17 08:11 Dose: 20 mg Sodium Chloride (Normal Saline) 1,000 mls @ 75 mls/hr IV ASDIRECTED [facility] Last Admin: 10/01/17 09:38 Dose: 75 mls/hr Morphine Sulfate (Morphine) 2 mg IVPUSH Q4H PRN PRN Reason: Pain Last Admin: 10/01/17 03:37 Dose: 2 mg Polysaccharide Iron Complex (Ferrex 150) 150 mg PO DAILY [facility] Last Admin: 10/01/17 08:11 Dose: 150 mg Sodium Chloride (Saline Flush) 10 ml FLUSH ASDIRECTED PRN PRN Reason: Keep Vein Open Sodium Chloride (Saline Flush) 2.5 ml FLUSH ASDIRECTED PRN PRN Reason: Keep Vein Open Tramadol HCl (Ultram) 50 mg PO BID PRN PRN Reason: Pain Last Admin: 10/01/17 08:09 Dose: 50 mg Vitamin E (Vitamin E) 400 units PO DAILY [facility] Last Admin: 10/01/17 08:11 Dose: 400 units Discontinued Medications Calcitonin [place] (Miacalcin Nasal [place]) 3.7 ml TARSHA DAILY [facility] Last Admin: 09/29/17 08:19 Dose: Not Given Heparin Sodium (Porcine) (Heparin Sodium) 5,000 units SUBCUT Q12H [facility] Last Admin: 09/27/17 13:04 Dose: Not Given Sodium Chloride (Normal Saline) 1,000 mls @ 125 mls/hr IV STAT [facility] Stop: 09/27/17 17:30 Last Admin: 09/27/17 10:13 Dose: 125 mls/hr Sodium Chloride (Normal Saline) 1,000 mls @ 75 mls/hr IV ASDIRECTED [facility] Stop: 09/28/17 01:49 Last Admin: 09/27/17 15:11 Dose: 75 mls/hr Iron Sucrose 200 mg/ Sodium (Chloride) 110 mls @ 400 mls/hr IV ONETIME ONE Stop: 09/29/17 11:11 Last Admin: 09/29/17 12:07 Dose: 400 mls/hr Morphine Sulfate (Morphine) 2 mg IVPUSH ONETIME ONE Stop: 09/27/17 09:26 Last Admin: 09/27/17 10:13 Dose: 2 mg Ondansetron HCl (Zofran) 4 mg IVPUSH ONETIME ONE Stop: 09/27/17 09:26 Last Admin: 09/27/17 10:13 Dose: 4 mg Potassium Chloride (Klor-Con M20) 20 meq PO ONETIME ONE Stop: 09/28/17 07:24 Last Admin: 09/28/17 07:49 Dose: 20 meq Spironolactone (Aldactone) 25 mg PO DAILY [facility] Last Admin: 09/29/17 08:18 Dose: 25 mg - Exam General: Alert, Oriented Neck: Supple Lungs: Clear to Auscultation, Normal Respiratory Effort Cardiovascular: Regular Rate, Regular Rhythm GI/Abdominal Exam: Normal Bowel Sounds, Soft, Non-Tender Back Exam: Normal Inspection. No: CVA Tenderness (L), CVA Tenderness (R) Extremities: Pedal Edema (trace) Peripheral Pulses: 2+: Dorsalis Pedis (L), Dorsalis Pedis (R) Psy/Mental Status: Alert, Normal Affect, Normal Mood - Problem List Review Problem List Initiated/Reviewed/Updated: Yes - Plan Plan:: Assessment/Plan: #1. Back pain - continue with treatment with PRN meds as ordered. She will require PT during deng placement which is planned for tomorrow. #2. HUYEN - continue with IV NS + lasix #3. NICM, CHF pacemaker - scheduled for a pacemaker/battery change 10/24 in [place]. She is well aware of this.
[2017-10-01] MEDS: Cyclobenzaprine 5 MG Tab PO PRN (17:23)
[2017-10-02] MEDS: traMADol 50 MG Tab PO PRN (06:32)
[2017-10-02] MEDS ORDERED: Acetaminophen/HYDROcodone 325-5 MG Tab PO PRN (08:23)
[2017-10-02] MEDS: Calcitonin (Salmon) Nasal Spray 3.7 ML Bottle NAS SCH (08:30)
[2017-10-02] MEDS: Cyclobenzaprine 5 MG Tab PO PRN (08:31)
[2017-10-02] MEDS: Carvedilol 12.5 MG Tab PO SCH (08:31)
[2017-10-02] MEDS: Iron Polysaccharides Complex 150 MG Cap PO SCH (08:31)
[2017-10-02] MEDS: Docusate Sodium 100 MG Cap PO SCH (08:31)
[2017-10-02] MEDS: Furosemide 20 MG Tab PO SCH (08:31)
[2017-10-02] MEDS: Vitamin E (dl-alpha-tocopherol acetate) 400 Unit Cap PO SCH (08:32)
[2017-10-02] MEDS: Aspirin 81 MG Tab.EC PO SCH (08:32)
--- NOTE | 2017-10-02 11:13 | PCM.DCSUM1 ---
Discharge Summary - Hospital Course Brief History: This 86 year old female with pmh of pacemaker, HTN, CHF with EF 35-40%, and chronic back pain from L1-L3 compression fractures presented to the ED today via EMS due to worsening R sided lower back pain which radiates to the front of her R thigh. She reports ambulating is very tough due to the extreme pain. She denies any falls, trauma or injuries recently. She reports a couple days ago she was doing daily housework and bent over to get clothes out of the dryer and felt a twinge in her back. Since then the pain bell progressively worsened. She reports most days her pain is good and has no issues. She uses Tylenol for pain and intermittent NSAIDs like Ibuprofen. In June she was admitted for similar symptoms and discharged to [facility] for short term rehabilitation with PT, which she reports she stayed a couple weeks and then went home. She denies chest pain, SOB or palpitations. No orthopnea. She reports improving edema to lower legs, but edema is still present. No fevers, chills or malaise. She reports some nausea and poor appetite, but she reports this is due to some pain. She hasn't been drinking much. Her last BM was yesterday, she denies it being black or bloody. She denies any abdominal pain, indigestion or bloating. No urine or stool incontinence. In the ED no leukocytosis noted, Hgb 9.7, down from past of 10.6, BUN 36 and Cr 1.9, which are elevated from baseline of 10/0.9. CXR revealed Cardiomegaly otherwise no pneumonia or CHF appearances. Abdomen/Pelvis CT obtained which revealed bilateral moderate pleural pleural effusions, hydropic gallbladder suggesting possible acalculus cholecystitis. Small amount of pelvic and peritoneal fluid along the right paracolic gutter. Recommended ultrasound. She was treated with IVFs and Morphine in the ED. Admission to observation for back pain and further evaluation of gallbladder. Upon review of clinic records from Dr Rousseau and Dr Wyatt, Kristin was seen by neurosurgery in [place] who recommended surgery for her lumbar spine. She saw both Dr Rousseau and Dr Maria in consultation for pre- operative clearance. Dr Palmer recommended further evaluation with EPS and ECHO before he would clear patient for surgery. He also started her on Lasix 20 mg daily to her Coreg 12.5 BID, Cozaar 50 mg daily, Aldactone 25 mg daily. I spoke with Kristin regarding this and she reports she is headed to [facility] October 24 to have pacemaker replaced. When discussing the next step for lumbar surgery, she reports she is really unsure about wanting to having this due to her age. I did contact Dr Palmer about admission due to elevated BUN CR and recent addition of Lasix. She was seen by Dr Hawk in [facility] for pacemaker replacement. It was felt she is have CHF exacerbation due to pacemaker at [facility]. At that time Cr noted to be 1.4 and BUN 28. No changes to medications made. Dr Maria felt she is no where near stable enough to have back surgery until pacemaker exchanged and CHF is under control. ECHO from beginning of August 2017 revealed LV EF 35-40%, biatrial enlargement, moderate MR, AR and TR. - Discharge Data Discharge Date: 10/02/17 Discharge Disposition: DC/Tfer to 03 Condition: Good - Discharge Diagnosis/Problem(s) (1) Back pain SNOMED Code(s): 784580065 ICD Code: M54.9 - DORSALGIA, UNSPECIFIED Status: Acute Current Visit: No Qualifiers: Back pain location: low back pain Chronicity: chronic Back pain laterality: right Sciatica presence: without sciatica Qualified Code(s): M54.5 - Low back pain; G89.29 - Other chronic pain (2) HUYEN (acute kidney injury) SNOMED Code(s): 02317644 ICD Code: N17.9 - ACUTE KIDNEY FAILURE, UNSPECIFIED Status: Acute Current Visit: Yes (3) Dehydration SNOMED Code(s): 94911685 ICD Code: E86.0 - DEHYDRATION Status: Acute Priority: High Current Visit: Yes (4) Compression fracture of L3 lumbar vertebra SNOMED Code(s): 090286627 ICD Code: S32.030A - WEDGE COMPRESSION FRACTURE OF THIRD LUMBAR VERTEBRA, INIT Status: Acute Current Visit: No Qualifiers: Encounter type: subsequent encounter Fracture type: closed (5) Hypertension SNOMED Code(s): 40830285 ICD Code: I10 - ESSENTIAL (PRIMARY) HYPERTENSION Status: Chronic Priority : Low Current Visit: No Qualifiers: Hypertension type: essential hypertension Qualified Code(s): I10 - Essential (primary) hypertension (6) Pacemaker SNOMED Code(s): 547594261 ICD Code: Z95.0 - PRESENCE OF CARDIAC PACEMAKER Status: Chronic Current Visit: No (7) Non-ischemic cardiomyopathy SNOMED Code(s): 71508594 ICD Code: I42.8 - OTHER CARDIOMYOPATHIES Status: Chronic Current Visit: Yes (8) 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 SNOMED Code(s): 123527749 ICD Code: Z45.010 - ENCNTR FOR CHECKING AND TEST OF CARD PACEMAKER PULSE GNRTR Status: Chronic Current Visit: Yes (9) Sleep apnea SNOMED Code(s): 38529951 ICD Code: G47.30 - SLEEP APNEA, UNSPECIFIED Status: Chronic Current Visit : Yes (10) Osteoporosis SNOMED Code(s): 05283074 ICD Code: M81.0 - AGE-RELATED OSTEOPOROSIS W/O CURRENT PATHOLOGICAL FRACTURE Status: Chronic Current Visit: Yes (11) Aortic valve regurgitation SNOMED Code(s): 67420690 ICD Code: I35.1 - NONRHEUMATIC AORTIC (VALVE) INSUFFICIENCY Status: Chronic Current Visit: Yes Qualifiers: Cardiac valve disease etiology: nonrheumatic Qualified Code(s): I35.1 - Nonrheumatic aortic (valve) insufficiency (12) Mitral valve regurgitation SNOMED Code(s): 03812530 ICD Code: I34.0 - NONRHEUMATIC MITRAL (VALVE) INSUFFICIENCY Status: Chronic Current Visit: Yes Qualifiers: Cardiac valve disease etiology: nonrheumatic Qualified Code(s): I34.0 - Nonrheumatic mitral (valve) insufficiency - Patient Summary/Data Consults: Consultations 09/27/17 11:45 Consult to Physician [CONS] Stat 09/27/17 12:27 Consult to Physical Therapy [PT Evaluation and Treatment] [CONS] Routine 09/27/17 16:00 Consult to Physician [CONS] Routine - Patient Instructions Diet: Heart Healthy Diet, Low Sodium Activity: As Tolerated Driving: Do Not Drive Showering/Bathing: May Shower Notify Provider of: Fever, Increased Pain, Swelling and Redness, Drainage, Nausea and/or Vomiting Other/Special Instructions: Compression stockings on in the morning and off at night for bed. PT/OT/ST to evaluate and treat - Discharge Plan Prescriptions/Med Rec: Acetaminophen/HYDROcodone [Marshall 325-5 MG] 1 tab PO Q4H PRN #20 tablet PRN Reason: Pain Bisacodyl [Dulcolax] 10 mg RECTAL DAILY PRN #10 supp PRN Reason: Constipation Cyclobenzaprine [Flexeril] 5 mg PO BID PRN #20 tablet PRN Reason: muscle spasms,back pain Iron Polysaccharides Complex [Ferrex 150] 150 mg PO DAILY #20 cap traMADol [Ultram] 50 mg PO BID PRN #20 tablet PRN Reason: Pain Home Medications: Home Meds Aspirin [Adult Low Dose Aspirin EC] 81 mg PO DAILY 04/01/14 [History] Carvedilol [Coreg] 12.5 mg DAILY 05/11/17 [History] Vitamin E 400 unit PO DAILY 05/14/17 [History] Furosemide 20 mg PO DAILY 09/27/17 [History] Acetaminophen [Tylenol Extra Strength] 500 mg PO Q6H PRN tablet 10/02/17 [Rx] Acetaminophen/HYDROcodone [Marshall 325-5 MG] 1 tab PO Q4H PRN #20 tablet 10/02/17 [Rx] Bisacodyl [Dulcolax] 10 mg RECTAL DAILY PRN #10 supp 10/02/17 [Rx] Calcitonin (Vance) [Miacalcin Nasal [place]unica] 1 spray TARSHA DAILY #1 bottle [Rx] Cyclobenzaprine [Flexeril] 5 mg PO BID PRN #20 tablet 10/02/17 [Rx] Docusate Sodium [Colace] 100 mg PO BID cap 10/02/17 [Rx] Iron Polysaccharides Complex [Ferrex 150] 150 mg PO DAILY #20 cap 10/02/17 [Rx] traMADol [Ultram] 50 mg PO BID PRN #20 tablet 10/02/17 [Rx] Patient Handouts: Acetaminophen; Hydrocodone tablets or capsules, Cyclobenzaprine tablets, Tramadol tablets, Dehydration, Adult, [id number] Referrals: Jefferson Palmer MD [Physician] - 10/11/17 11:30 am Jose A Hawk [Ordering Only Provider] - 10/24/17 (Pre-surgical will get ahold of client at a closer date. Clinical Resource Manager stated the treatment usually starts at 8am.) Chema Silverman MD [Physician] - 10/09/17 (Will be seen on the next rounds.) - Discharge Summary/Plan Comment DC Time >30 min.: No Discharge Summary/Plan Comment: Discharge Diagnoses: Acute on chronic back pain HTN Pacemaker- at end of battery life CHF secondary to pacemaker Kristin was admitted due to back pain. She has been treated with Tylenol, Flexeril and Tramadol. She reports the pain continues, but has been up ambulating with assistance. She reported she felt like she was unable to care for herself at home due to the pain with bending. She will be transferred to [facility] today to continue PT/OT for back pain. She will continue on pain management as well. She is unable to have NSAID due to elevated BUN and Cr. Upon admission BUN and Cr elevated from baseline. She recently has seen Dr Hawk and BUN was 20s and Cr 1.4. She has been started on Lasix, ALdactone due to CHF likely secondary to pacemaker at end of battery life. She will have generator replaced October [address] Hawk and is followed by Dr Palmer here in [facility]. We discontinued her Losartan and ALdactone for now. Will continue Lasix and Coreg. Today she continues to have pain to lower back. Some lower leg edema. But denies chest pain or SOB. She is not eager for transfer to [facility], but is willing to go. I spoke with Dr Silverman who has accepted to for [facility] transfer. She will have follow up with Dr Palmer and Dr Silverman at next [facility] rounds. Will let Dr Rousseau, PCP, know regarding admission and transfer to [facility]. - General Info Date of Service: 10/02/17 Admission Dx/Problem (Free Text: Back pain Subjective Update: Sitting up in the chair, appears comfortable, eating breakfast but reports she is "miserable and in pain". No chest pain or SOB. leg have some swelling. Pain is to low back and hurts worse with movement and sitting. Functional Status: Reports: Tolerating Diet, Ambulating, Urinating. Denies: Pain Controlled - Review of Systems General: Reports: No Symptoms. Denies: Fever, Weakness, Fatigue, Malaise Pulmonary: Reports: No Symptoms. Denies: Shortness of Breath Cardiovascular: Reports: Edema (lower legs). Denies: Chest Pain, Dyspnea on Exertion Gastrointestinal: Reports: No Symptoms. Denies: Abdominal Pain, Nausea, Vomiting Genitourinary: Reports: No Symptoms. Denies: Dysuria, Frequency, Burning Musculoskeletal: Reports: Back Pain (low back pain, almost unchanged per report) Neurological: Reports: No Symptoms. Denies: Numbness, Paresthesia, Weakness Psychiatric: Reports: No Symptoms - Patient Data Vitals - Most Recent: Last Vital Signs Temp 99 F 10/02/17 08:00 Pulse 66 10/02/17 08:31 Resp 16 10/02/17 08:00 BP 113/60 10/02/17 08:31 Pulse Ox 91 L 10/02/17 08:00 Weight - Most Recent: 70.488 kg I&O - Last 24 hours: Intake & Output 10/01/17 10/02/17 10/02/17 22:59 06:59 14:59 Intake Total 390 150 Output Total 200 400 Balance 190 -250 Lab Results - Last 24 hrs: Laboratory Results - last 24 hr 10/02/17 10/02/17 Range/Units 04:53 04:53 WBC 5.58 (4.0-11.0) K/uL RBC 3.23 L (4.30-5.90) M/uL Hgb 9.9 L (12.0-16.0) g/dL Hct 30.4 L (36.0-46.0) % MCV 94.1 (80.0-98.0) fL MCH 30.7 (27.0-32.0) pg MCHC 32.6 (31.0-37.0) g/dL RDW Std Deviation 53.6 (28.0-62.0) fl RDW Coeff of Sylwia 16 H (11.0-15.0) % Plt Count 199 (150-400) K/uL MPV 10.50 (7.40-12.00) fL Neut % (Auto) 59.8 (48.0-80.0) % Lymph % (Auto) 23.3 (16.0-40.0) % [place] % (Auto) 14.7 (0.0-15.0) % Eos % (Auto) 2.0 (0.0-7.0) % Baso % (Auto) 0.2 (0.0-1.5) % Neut # (Auto) 3.3 (1.4-5.7) K/uL Lymph # (Auto) 1.3 (0.6-2.4) K/uL [place] # (Auto) 0.8 (0.0-0.8) K/uL Eos # (Auto) 0.1 (0.0-0.7) K/uL Baso # (Auto) 0.0 (0.0-0.1) K/uL Nucleated RBC % 0.0 /100WBC Nucleated RBCs # 0 K/uL Sodium 139 (136-145) mmol/L Potassium 3.5 (3.5-5.1) mmol/L Chloride 109 H (98-107) mmol/L Carbon Dioxide 16.0 L (21.0-32.0) mmol/L BUN 29 H (7.0-18.0) mg/dL Creatinine 1.4 H (0.6-1.0) mg/dL Est Cr Clr Drug Dosing 27.01 mL/min Estimated GFR (MDRD) 35.5 ml/min Glucose 109 H (74-106) mg/dL Calcium 8.3 L (8.5-10.1) mg/dL JOAN Results - Last 24 hrs: Microbiology 09/27/17 12:01 Aerobic Blood Culture - Preliminary Blood - Venous NO GROWTH AFTER 4 DAYS Anaerobic Blood Culture - Final 09/27/17 12:28 Aerobic Blood Culture - Preliminary Blood - Venous - Lab Draw NO GROWTH AFTER 4 DAYS Anaerobic Blood Culture - Final Med Orders - Current: Current Medications Acetaminophen (Tylenol Extra Strength) 500 mg PO Q6H PRN PRN Reason: Pain Last Admin: 10/01/17 08:27 Dose: 500 mg Hydrocodone Bitart/Acetaminophen (Marshall 325-5 Mg) 1 tab PO Q4H PRN PRN Reason: Pain Aspirin (Halfprin) 81 mg PO DAILY [facility] Last Admin: 10/02/17 08:32 Dose: 81 mg Bisacodyl (Dulcolax) 10 mg RECTAL DAILY PRN PRN Reason: Constipation Last Admin: 09/29/17 14:23 Dose: 10 mg Calcitonin Vance (Miacalcin Nasal Nunica) 0 ml TARSHA Q2D@0900 [facility] Last Admin: 10/02/17 08:30 Dose: 1 spray Calcitonin Vance (Miacalcin Nasal Nunica) 0 ml TARSHA Q2D@0900 [facility] Last Admin: 10/01/17 09:50 Dose: Not Given Carvedilol (Coreg) 12.5 mg PO BID [facility] Last Admin: 10/02/17 08:31 Dose: 12.5 mg Cyclobenzaprine HCl (Flexeril) 5 mg PO BID PRN PRN Reason: muscle spasms,back pain Last Admin: 10/02/17 08:31 Dose: 5 mg Docusate Sodium (Colace) 100 mg PO BID [facility] Last Admin: 10/02/17 08:31 Dose: 100 mg Furosemide (Lasix) 20 mg PO DAILY [facility] Last Admin: 10/02/17 08:31 Dose: 20 mg Morphine Sulfate (Morphine) 2 mg IVPUSH Q4H PRN PRN Reason: Pain Last Admin: 10/01/17 20:49 Dose: 2 mg Polysaccharide Iron Complex (Ferrex 150) 150 mg PO DAILY [facility] Last Admin: 10/02/17 08:31 Dose: 150 mg Sodium Chloride (Saline Flush) 10 ml FLUSH ASDIRECTED PRN PRN Reason: Keep Vein Open Sodium Chloride (Saline Flush) 2.5 ml FLUSH ASDIRECTED PRN PRN Reason: Keep Vein Open Tramadol HCl (Ultram) 50 mg PO BID PRN PRN Reason: Pain Last Admin: 10/02/17 06:32 Dose: 50 mg Vitamin E (Vitamin E) 400 units PO DAILY [facility] Last Admin: 10/02/17 08:32 Dose: 400 units Discontinued Medications Calcitonin Vance (Miacalcin Nasal Nunica) 3.7 ml TARSHA DAILY [facility] Last Admin: 09/29/17 08:19 Dose: Not Given Heparin Sodium (Porcine) (Heparin Sodium) 5,000 units SUBCUT Q12H [facility] Last Admin: 09/27/17 13:04 Dose: Not Given Sodium Chloride (Normal Saline) 1,000 mls @ 125 mls/hr IV STAT [facility] Stop: 09/27/17 17:30 Last Admin: 09/27/17 10:13 Dose: 125 mls/hr Sodium Chloride (Normal Saline) 1,000 mls @ 75 mls/hr IV ASDIRECTED [facility] Stop: 09/28/17 01:49 Last Admin: 09/27/17 15:11 Dose: 75 mls/hr Sodium Chloride (Normal Saline) 1,000 mls @ 75 mls/hr IV ASDIRECTED [facility] Last Admin: 10/01/17 09:38 Dose: 75 mls/hr Iron Sucrose 200 mg/ Sodium (Chloride) 110 mls @ 400 mls/hr IV ONETIME ONE Stop: 09/29/17 11:11 Last Admin: 09/29/17 12:07 Dose: 400 mls/hr Morphine Sulfate (Morphine) 2 mg IVPUSH ONETIME ONE Stop: 09/27/17 09:26 Last Admin: 09/27/17 10:13 Dose: 2 mg Ondansetron HCl (Zofran) 4 mg IVPUSH ONETIME ONE Stop: 09/27/17 09:26 Last Admin: 09/27/17 10:13 Dose: 4 mg Potassium Chloride (Klor-Con M20) 20 meq PO ONETIME ONE Stop: 09/28/17 07:24 Last Admin: 09/28/17 07:49 Dose: 20 meq Spironolactone (Aldactone) 25 mg PO DAILY SOCRATES Last Admin: 09/29/17 08:18 Dose: 25 mg - Exam General: Reports: Alert, Oriented, Cooperative, No Acute Distress Neck: Reports: Supple Lungs: Reports: Clear to Auscultation, Normal Respiratory Effort Cardiovascular: Reports: Regular Rate, Regular Rhythm GI/Abdominal Exam: Normal Bowel Sounds, Soft, Non-Tender, No Organomegaly, No Distention, No Abnormal Bruit, No Mass, Pelvis Stable Extremities: Normal Inspection, Normal Range of Motion, Non-Tender, Normal Capillary Refill, Pedal Edema (+1 pitting BLE. ) Skin: Reports: Warm, Dry Neurological: Reports: No New Focal Deficit Psy/Mental Status: Reports: Alert, Normal Affect, Normal Mood
[2017-10-02 11:28] VITALS: BP 102/57
== END 2017-10-02 13:30 | DRG 552 ==
LOC: MW.ED 08:59 → MW.MS 12:07 → OBSVTOIN 09-29 09:04
PROVIDERS: ADMIT Internal Medicine; ATTEND Internal Medicine
DX: M48.56XA Collapsed vertebra, not elsewhere classified, lumbar region, initial encounter for fracture (principal); S32.030A Wedge compression fracture of third lumbar vertebra, initial encounter for closed fracture; N17.9 Acute kidney failure, unspecified; M25.551 Pain in right hip; I49.9 Cardiac arrhythmia, unspecified; I50.9 Heart failure, unspecified; M19.90 Unspecified osteoarthritis, unspecified site; I42.8 Other cardiomyopathies; I50.20 Unspecified systolic (congestive) heart failure; J90 Pleural effusion, not elsewhere classified; E86.0 Dehydration; I10 Essential (primary) hypertension; K82.8 Other specified diseases of gallbladder; M18.0 Bilateral primary osteoarthritis of first carpometacarpal joints; I08.0 Rheumatic disorders of both mitral and aortic valves; Z95.0 Presence of cardiac pacemaker; G47.30 Sleep apnea, unspecified; Z79.899 Other long term (current) drug therapy; Z79.82 Long term (current) use of aspirin; Z45.010 Encounter for checking and testing of cardiac pacemaker pulse generator [battery]
CPT/HCPCS: 36415 ×3; 71045; 74176; 76705; 76775; 80048 ×2; 80053; 81001; 82607; 82728; 82746; 83550; 83605; 83880; 85025 ×3; 85045; 85610; 87040 ×2; 87086; 88104; 93005; 96361; 96374; 96375; 97161; 99285; A9270 ×24; J2270 ×2; J2405; J7040 ×4; 72131-26; 82272; 99284; G0378; J1644; J1756; J7030

== ENCOUNTER 2017-10-06 13:33 | Observation (INO) | payer MEDICARE, OTHER ==
[2017-10-06] MEDS ORDERED: Sodium Chloride 0.9% 10 ML Syringe FLUSH PRN (13:39)
[2017-10-06] MEDS ORDERED: Sodium Chloride 0.9% 2.5 ML Syringe FLUSH PRN (13:39)
--- NOTE | 2017-10-06 13:39 | EDM.PDOC ---
ED HPI GENERAL MEDICAL PROBLEM - General Stated Complaint: SOB Time Seen by Provider: 10/06/17 13:36 Source of Information: Reports: Patient History Limitations: Reports: No Limitations - History of Present Illness INITIAL COMMENTS - FREE TEXT/NARRATIVE: HISTORY AND PHYSICAL: History of present illness: Patient is an 86-year-old female who presents to the emergency room with complaints of shortness of breath for the past 48 hours. She recently was discharged from our facility and states she had been feeling "pretty well until the past 2 days". She did have concern that she had swelling to her bilateral thighs. She denies any fever, chills, chest pain, abdominal pain, nausea, vomiting, diarrhea or constipation. She has been eating and drinking appropriately. No recent falls, trauma or injury. He is a resident of a local residential. Past medical history of pacemaker, hypertension, congestive heart failure with EF 5-40%, chronic back pain with L1-L3 compression fracture, and kidney disease. Review of systems: As per history of present illness and below otherwise all systems reviewed and negative. Past medical history: As per history of present illness and as reviewed below otherwise noncontributory. Surgical history: As per history of present illness and as reviewed below otherwise noncontributory. Social history: No reported history of drug or alcohol abuse. Family history: As per history of present illness and as reviewed below otherwise noncontributory. Physical exam: General: Well-developed and well-nourished 86-year-old female. Alert and oriented. Nontoxic appearing and in no acute distress. HEENT: Atraumatic, normocephalic, pupils equal and reactive bilaterally, negative for conjunctival pallor or scleral icterus, mucous membranes moist, throat clear, neck supple, nontender, trachea midline. No drooling or trismus noted. No meningeal signs Lungs: Clear to auscultation, breath sounds equal bilaterally, chest nontender. Heart: S1S2, regular rate and rhythm without overt murmur Abdomen: Soft, nondistended, nontender. Negative for masses or hepatosplenomegaly. Negative for costovertebral tenderness. Pelvis: Stable nontender. Genitourinary: Deferred. Rectal: Deferred. Skin: Pale, intact, warm, dry. No lesions or rashes noted. Extremities: Atraumatic, moves all extremities per self without difficulty or deficits. +2 pitting edema to bilateral lower extremities. She does wear WARREN hose stockings. negative for cords or calf pain. Neurovascular unremarkable. Neuro: Awake, alert, oriented. Cranial nerves II through XII unremarkable. Cerebellum unremarkable. Motor and sensory unremarkable throughout. Exam nonfocal. Notes: 10/02/2017: Patient was admitted to our hospital for low back pain. BNP is 3014, Lasix was ordered at this. BP remains on the lower side; but this appears to be normal for her. Dr Perry was consulted on this case, he is agreeable to keeping this patient as observation with telemetry. Diagnostics: CBC, CMP, troponin, EKG, one view chest, Therapeutics: 250 mL bolus then 125 per hour, Impression: CHF exacerbation Plan: Observation with Telemetry Definitive disposition and diagnosis as appropriate pending reevaluation and review of above. Low Back Pain Score (Numeric/FACES): 7 - Related Data Allergies Allergy/AdvReac Type Severity Reaction Status Date / Time No Known Allergies Allergy Verified 10/06/17 14:43 Home Meds: Home Meds Aspirin [Adult Low Dose Aspirin EC] 81 mg PO DAILY 04/01/14 [History] Carvedilol [Coreg] 12.5 mg PO DAILY 05/11/17 [History] Vitamin E 400 unit PO DAILY 05/14/17 [History] Furosemide 20 mg PO DAILY 09/27/17 [History] Acetaminophen [Tylenol Extra Strength] 500 mg PO Q6H PRN tablet 10/02/17 [Rx] Acetaminophen/HYDROcodone [[place] 325-5 MG] 1 tab PO Q4H PRN #20 tablet 10/02/17 [Rx] Bisacodyl [Dulcolax] 10 mg RECTAL DAILY PRN #10 supp 10/02/17 [Rx] Calcitonin ([place]) [Miacalcin Nasal [place]] 1 spray TARSHA DAILY #1 bottle [Rx] Cyclobenzaprine [Flexeril] 5 mg PO BID PRN #20 tablet 10/02/17 [Rx] Docusate Sodium [Colace] 100 mg PO BID cap 10/02/17 [Rx] Iron Polysaccharides Complex [Ferrex 150] 150 mg PO DAILY #20 cap 10/02/17 [Rx] traMADol [Ultram] 50 mg PO BID PRN #20 tablet 10/02/17 [Rx] Past Medical History HEENT History: Reports: Cataract Cardiovascular History: Reports: Arrhythmia, Heart Failure, Pacemaker Respiratory History: Reports: None. 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 Denies: Diabetes, Type II Hematologic History: Reports: None Immunologic History: Reports: None Oncologic (Cancer) History: Reports: None Dermatologic History: Reports: None - Infectious Disease History Infectious Disease History: Reports: Chicken Pox, Measles, Mumps, Rubella, Shingles - Past Surgical History HEENT Surgical History: Reports: Cataract Surgery Cardiovascular Surgical History: Reports: Pacer Social & Family History - Family History Family Medical History: Noncontributory - Caffeine Use Caffeine Use: Reports: None - Living Situation & Occupation Living situation: Reports: Alone Occupation: Retired ED ROS GENERAL - Review of Systems Review Of Systems: ROS reveals no pertinent complaints other than HPI. ED EXAM, GENERAL - Physical Exam Exam: See Below (See dictation) Course - Vital Signs Last Recorded V/S: Last Vital Signs Temp 97.8 F 10/06/17 13:44 Pulse 74 10/06/17 13:44 Resp 20 10/06/17 13:44 BP 83/59 L 10/06/17 13:44 Pulse Ox 96 10/06/17 13:44 - Orders/Labs/Meds Orders: Active Orders 24 hr Category Date Time Status EKG Documentation Completion [RC] STAT Care 10/06/17 13:39 Active Sodium Chloride 0.9% [Saline Flush] Med 10/06/17 13:39 Active 10 ml FLUSH ASDIRECTED PRN Sodium Chloride 0.9% [Saline Flush] Med 10/06/17 13:39 Active 2.5 ml FLUSH ASDIRECTED PRN Saline Lock Insert [OM.PC] Stat Oth 10/06/17 13:39 Ordered Medication Orders Sodium Chloride (Saline Flush) 10 ml FLUSH ASDIRECTED PRN PRN Reason: Keep Vein Open Sodium Chloride (Saline Flush) 2.5 ml FLUSH ASDIRECTED PRN PRN Reason: Keep Vein Open Labs: Laboratory Tests 06/15/18 06/15/18 06/15/18 Range/Units 14:35 14:35 14:35 WBC 5.68 (4.0-11.0) K/uL RBC 3.76 L (4.30-5.90) M/uL Hgb 11.6 L (12.0-16.0) g/dL Hct 35.5 L (36.0-46.0) % MCV 94.4 (80.0-98.0) fL MCH 30.9 (27.0-32.0) pg MCHC 32.7 (31.0-37.0) g/dL RDW Std Deviation 56.6 (28.0-62.0) fl RDW Coeff of Sylwia 17 H (11.0-15.0) % Plt Count 228 (150-400) K/uL MPV 10.20 (7.40-12.00) fL Neut % (Auto) 65.1 (48.0-80.0) % Lymph % (Auto) 21.5 (16.0-40.0) % [place] % (Auto) 10.9 (0.0-15.0) % Eos % (Auto) 2.3 (0.0-7.0) % Baso % (Auto) 0.2 (0.0-1.5) % Neut # (Auto) 3.7 (1.4-5.7) K/uL Lymph # (Auto) 1.2 (0.6-2.4) K/uL [place] # (Auto) 0.6 (0.0-0.8) K/uL Eos # (Auto) 0.1 (0.0-0.7) K/uL Baso # (Auto) 0.0 (0.0-0.1) K/uL Nucleated RBC % 0.0 /100WBC Nucleated RBCs # 0 K/uL Sodium 139 (136-145) mmol/L Potassium 3.9 (3.5-5.1) mmol/L Chloride 106 (98-107) mmol/L Carbon Dioxide 18.5 L (21.0-32.0) mmol/L BUN 34 H (7.0-18.0) mg/dL Creatinine 1.5 H (0.6-1.0) mg/dL Est Cr Clr Drug Dosing TNP Estimated GFR (MDRD) 32.8 ml/min Glucose 128 H (74-106) mg/dL Calcium 8.6 (8.5-10.1) mg/dL Total Bilirubin 0.9 (0.2-1.0) mg/dL AST 46 H (15-37) IU/L ALT 112 H (14-63) IU/L Alkaline Phosphatase 118 H (46-116) U/L Troponin I < 0.050 (0.000-0.056) ng/mL B-Natriuretic Peptide 3014 H (<100) PG/ML Total Protein 6.1 L (6.4-8.2) g/dL Albumin 3.0 L (3.4-5.0) g/dL Globulin 3.1 (2.0-3.5) g/dL Albumin/Globulin Ratio 1.0 L (1.3-2.8) Meds: Medications Generic Name Dose Route Start Last Admin Trade Name Freq PRN Reason Stop Dose Admin Sodium Chloride 10 ml 10/06/17 13:39 Saline Flush FLUSH ASDIRECTED PRN Keep Vein Open Sodium Chloride 2.5 ml 10/06/17 13:39 Saline Flush FLUSH ASDIRECTED PRN Keep Vein Open Discontinued Medications Generic Name Dose Route Start Last Admin Trade Name Freq PRN Reason Stop Dose Admin Furosemide 40 mg 10/06/17 15:12 Lasix IVPUSH 10/06/17 15:13 NOW ONE Sodium Chloride 1,000 mls @ 999 mls/hr 10/06/17 13:56 10/06/17 14:47 Normal Saline IV 10/06/17 14:56 999 mls/hr STAT ONE Administration Departure - Departure Time of Disposition: 15:18 Disposition: Refer to Observation Clinical Impression: CHF exacerbation Qualifiers: Heart failure type: unspecified Qualified Code(s): I50.9 - Heart failure, unspecified - Discharge Information - My Orders Last 24 Hours: My Active Orders 10/06/17 13:39 EKG Documentation Completion [RC] STAT Sodium Chloride 0.9% [Saline Flush] 10 ml FLUSH ASDIRECTED PRN Sodium Chloride 0.9% [Saline Flush] 2.5 ml FLUSH ASDIRECTED PRN Saline Lock Insert [OM.PC] Stat - Assessment/Plan Last 24 Hours: My Active Orders 10/06/17 13:39 EKG Documentation Completion [RC] STAT Sodium Chloride 0.9% [Saline Flush] 10 ml FLUSH ASDIRECTED PRN Sodium Chloride 0.9% [Saline Flush] 2.5 ml FLUSH ASDIRECTED PRN Saline Lock Insert [OM.PC] Stat
[2017-10-06] MEDS ORDERED: Sodium Chloride 0.9% 1,000 ML IV ONE (13:56)
--- NOTE | 2017-10-06 15:04 | CR ---
EXAMINATION: Portable chest radiograph. HISTORY: Shortness of breath. FINDINGS: The trachea is midline. The heart is enlarged. Left-sided pacemaker is noted. Chronic interstitial pr ominence. Mild bibasilar atelectasis and/or infiltrate with trace bilateral pleural effusions. No pne umothorax. Osseous structures appear osteopenic. IMPRESSION: 1. Cardiomegaly with bibasilar atelectasis and/or infiltrate and trace pleural effusions. Correlate for exacerbation of CHF.
[2017-10-06 15:09] LABS: CHLORIDE,CL 106 mmol/L (98-107); SODIUM,NA 139 mmol/L (136-145)
[2017-10-06] MEDS ORDERED: Furosemide 40 MG/4 ML VIAL IVPUSH ONE (15:12)
--- NOTE | 2017-10-06 17:02 | PCM.HP ---
H&P History of Present Illness - General Date of Service: 10/06/17 Admit Problem/Dx: Admission Diagnosis/Problem Admission Diagnosis/Problem CHF, Congestive heart failure Source of Information: Patient History Limitations: Reports: No Limitations - History of Present Illness Initial Comments - Free Text/Narative: This 86 jennifer old female with pmh of pacemaker at end of life, HTN, CHF with EF 35-40% and chronic back pain from L1-L3 compression fractures presented to the ED today with complaints of shortness of breath which occurs intermittently per her report. She reports it has been happening for the last couple days and today she was up ambulating a short distance and then sat down feeling more short of breath. She also reports edema to her legs which has waxed and waned, feeling a little improved from a day or two ago. She denies chest pain or palpitations. No abdominal pain. No dysuria. No numbness or tingling or focal neurologic deficits. She reports back pain has been well controlled last couple days, but it is worse with her up ambulating. In the ED hgb 11.6, no leukocytosis, BUN 35, Cr 1.5. AST 46, ALT 112, Alk phos 118. CXR revealed cardiomegaly with bibasilar atelectasis vs infiltrate, correlate with CHF exacerbation. She was admitted last week and discharged to [facility] on Monday10/02/2017. She was treated with IVFs for HUYEN, Dr Palmer consulted. CHF is likely due to pacemaker at [facility]. Continues to want DNR/DNI status. Low Back Pain Score (Numeric/FACES): 7 - Related Data Allergies/Adverse Reactions: Allergies Allergy/AdvReac Type Severity Reaction Status Date / Time No Known Allergies Allergy Verified 10/06/17 14:43 Home Medications: Home Meds Aspirin [Adult Low Dose Aspirin EC] 81 mg PO DAILY 04/01/14 [History] Carvedilol [Coreg] 12.5 mg PO DAILY 05/11/17 [History] Vitamin E 400 unit PO DAILY 05/14/17 [History] Furosemide 20 mg PO DAILY 09/27/17 [History] Acetaminophen [Tylenol Extra Strength] 500 mg PO Q6H PRN tablet 10/02/17 [Rx] Acetaminophen/HYDROcodone [[place] 325-5 MG] 1 tab PO Q4H PRN #20 tablet 10/02/17 [Rx] Bisacodyl [Dulcolax] 10 mg RECTAL DAILY PRN #10 supp 10/02/17 [Rx] Calcitonin ([place]) [Miacalcin Nasal [place]] 1 spray TARSHA DAILY #1 bottle [Rx] Cyclobenzaprine [Flexeril] 5 mg PO BID PRN #20 tablet 10/02/17 [Rx] Docusate Sodium [Colace] 100 mg PO BID cap 10/02/17 [Rx] Iron Polysaccharides Complex [Ferrex 150] 150 mg PO DAILY #20 cap 10/02/17 [Rx] traMADol [Ultram] 50 mg PO BID PRN #20 tablet 10/02/17 [Rx] Past Medical History HEENT History: Reports: Cataract Cardiovascular History: Reports: Arrhythmia, Heart Failure, Pacemaker Respiratory History: Reports: None. 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 Denies: Diabetes, Type II Hematologic History: Reports: None Immunologic History: Reports: None Oncologic (Cancer) History: Reports: None Dermatologic History: Reports: None - Infectious Disease History Infectious Disease History: Reports: Chicken Pox, Measles, Mumps, Rubella, Shingles - Past Surgical History HEENT Surgical History: Reports: Cataract Surgery Cardiovascular Surgical History: Reports: Pacer Social & Family History - Family History Family Medical History: Noncontributory - Tobacco Use Smoking Status *Q: Never Smoker - Caffeine Use Caffeine Use: Reports: None - Alcohol Use Alcohol Use History: No - Living Situation & Occupation Living situation: Reports: Alone Occupation: Retired H&P Review of Systems - Review of Systems: Review Of Systems: See Below General: Reports: Fatigue. Denies: Fever, Chills, Malaise, Weakness HEENT: Reports: No Symptoms. Denies: Headaches, Sinus Congestion, Sore Throat, Vertigo Pulmonary: Reports: Shortness of Breath, Cough, Sputum (clear to yellow). Denies: Wheezing, Hemoptysis Cardiovascular: Reports: Dyspnea on Exertion, Orthopnea, Edema (BLE). Denies: Chest Pain, Syncope Gastrointestinal: Reports: Constipation. Denies: Abdominal Pain, Black Stool, Bloody Stool, Nausea, Vomiting Genitourinary: Reports: No Symptoms. Denies: Dysuria, Frequency, Burning Musculoskeletal: Reports: Back Pain (improved. ) Skin: Reports: No Symptoms Psychiatric: Reports: No Symptoms Neurological: Reports: No Symptoms Hematologic/Lymphatic: Reports: No Symptoms Immunologic: Reports: No Symptoms Exam - Exam Exam: See Below - Vital Signs Vital Signs: Last Vital Signs Temp 97.8 F 10/06/17 13:44 Pulse 74 10/06/17 13:44 Resp 20 10/06/17 13:44 BP 83/59 L 10/06/17 13:44 Pulse Ox 96 10/06/17 13:44 - Exam Quality Assessment: Supplemental Oxygen, DVT Prophylaxis General: Alert, Oriented, Cooperative HEENT: Conjunctiva Clear, Mucosa Moist & Katherine, Posterior Pharynx Clear, Pupils Equal, Pupils Reactive Neck: Supple, +2 Carotid Pulse wo Bruit, JVD Lungs: Crackles (fine crackles bibasilar). No: Normal Respiratory Effort ( dyspnea noted with speech) Cardiovascular: Regular Rate, Regular Rhythm, Normal S1, Normal S2. No: Systolic Murmur GI/Abdominal Exam: Normal Bowel Sounds, Soft, Non-Tender, No Distention Extremities: Normal Range of Motion, Non-Tender, Pedal Edema (+2 pitting edema extending proximally to lower abdomen. ) Neuro Extensive - Mental Status: Alert, Oriented x3, Normal Mood/Affect Neuro Extensive - Motor, Sensory, Reflexes: CN II-XII Intact Psychiatric: Alert, Normal Affect, Normal Mood - Patient Data Lab Results Last 24 hrs: Laboratory Results - last 24 hr 10/06/17 10/06/17 10/06/17 Range/Units 14:35 14:35 14:35 WBC 5.68 (4.0-11.0) K/uL RBC 3.76 L (4.30-5.90) M/uL Hgb 11.6 L (12.0-16.0) g/dL Hct 35.5 L (36.0-46.0) % MCV 94.4 (80.0-98.0) fL MCH 30.9 (27.0-32.0) pg MCHC 32.7 (31.0-37.0) g/dL RDW Std Deviation 56.6 (28.0-62.0) fl RDW Coeff of Sylwia 17 H (11.0-15.0) % Plt Count 228 (150-400) K/uL MPV 10.20 (7.40-12.00) fL Neut % (Auto) 65.1 (48.0-80.0) % Lymph % (Auto) 21.5 (16.0-40.0) % [place] % (Auto) 10.9 (0.0-15.0) % Eos % (Auto) 2.3 (0.0-7.0) % Baso % (Auto) 0.2 (0.0-1.5) % Neut # (Auto) 3.7 (1.4-5.7) K/uL Lymph # (Auto) 1.2 (0.6-2.4) K/uL [place] # (Auto) 0.6 (0.0-0.8) K/uL Eos # (Auto) 0.1 (0.0-0.7) K/uL Baso # (Auto) 0.0 (0.0-0.1) K/uL Nucleated RBC % 0.0 /100WBC Nucleated RBCs # 0 K/uL Sodium 139 (136-145) mmol/L Potassium 3.9 (3.5-5.1) mmol/L Chloride 106 (98-107) mmol/L Carbon Dioxide 18.5 L (21.0-32.0) mmol/L BUN 34 H (7.0-18.0) mg/dL Creatinine 1.5 H (0.6-1.0) mg/dL Est Cr Clr Drug Dosing TNP Estimated GFR (MDRD) 32.8 ml/min Glucose 128 H (74-106) mg/dL Calcium 8.6 (8.5-10.1) mg/dL Total Bilirubin 0.9 (0.2-1.0) mg/dL AST 46 H (15-37) IU/L ALT 112 H (14-63) IU/L Alkaline Phosphatase 118 H (46-116) U/L Troponin I < 0.050 (0.000-0.056) ng/mL B-Natriuretic Peptide 3014 H (<100) PG/ML Total Protein 6.1 L (6.4-8.2) g/dL Albumin 3.0 L (3.4-5.0) g/dL Globulin 3.1 (2.0-3.5) g/dL Albumin/Globulin Ratio 1.0 L (1.3-2.8) Result Diagrams: 10/06/17 14:35 10/06/17 14:35 *Q Meaningful Use (ADM) - VTE Risk Assess *Q Each Risk Factor Represents 1 Point: Congestive heart failure (CHF) Total Score 1 Point Risk Factors: 1 Each Risk Factor Represents 2 Points: None Total Score 2 Point Risk Factors: 0 Each Risk Factor Represents 3 Points: Age 75 Years or Greater Total Score 3 Point Risk Factors: 3 Each Risk Factor Represents 5 Points: None Total Score 5 Point Risk Factors: 0 Venous Thromboembolism Risk Factor Score *Q: 4 - Problem List (1) CHF exacerbation SNOMED Code(s): 82236537 ICD Code: I50.9 - HEART FAILURE, UNSPECIFIED Status: Acute Current Visit : Yes Qualifiers: Heart failure type: systolic Qualified Code(s): I50.23 - Acute on chronic systolic (congestive) heart failure (2) Peripheral edema SNOMED Code(s): 121446228 ICD Code: R60.9 - EDEMA, UNSPECIFIED Status: Acute Current Visit: Yes (3) Compression fracture of L3 lumbar vertebra SNOMED Code(s): 394782848 ICD Code: S32.030A - WEDGE COMPRESSION FRACTURE OF THIRD LUMBAR VERTEBRA, INIT Status: Chronic Current Visit: No Qualifiers: Encounter type: subsequent encounter Fracture type: closed (4) Aortic valve regurgitation SNOMED Code(s): 30935771 ICD Code: I35.1 - NONRHEUMATIC AORTIC (VALVE) INSUFFICIENCY Status: Chronic Current Visit: No Qualifiers: Cardiac valve disease etiology: nonrheumatic Qualified Code(s): I35.1 - Nonrheumatic aortic (valve) insufficiency (5) History of bradycardia SNOMED Code(s): 205744824659815 ICD Code: Z86.79 - PERSONAL HISTORY OF OTHER DISEASES OF THE CIRCULATORY SYSTEM Status: Chronic Current Visit: No (6) Hypertension SNOMED Code(s): 68910479 ICD Code: I10 - ESSENTIAL (PRIMARY) HYPERTENSION Status: Chronic Priority : Low Current Visit: No Qualifiers: Hypertension type: essential hypertension Qualified Code(s): I10 - Essential (primary) hypertension (7) Mitral valve regurgitation SNOMED Code(s): 37799082 ICD Code: I34.0 - NONRHEUMATIC MITRAL (VALVE) INSUFFICIENCY Status: Chronic Current Visit: No Qualifiers: Cardiac valve disease etiology: nonrheumatic Qualified Code(s): I34.0 - Nonrheumatic mitral (valve) insufficiency (8) Non-ischemic cardiomyopathy SNOMED Code(s): 32803477 ICD Code: I42.8 - OTHER CARDIOMYOPATHIES Status: Chronic Current Visit: No (9) 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 SNOMED Code(s): 176911063 ICD Code: Z45.010 - ENCNTR FOR CHECKING AND TEST OF CARD PACEMAKER PULSE GNRTR Status: Chronic Current Visit: No (10) Sleep apnea SNOMED Code(s): 51171559 ICD Code: G47.30 - SLEEP APNEA, UNSPECIFIED Status: Chronic Current Visit : No Problem List Initiated/Reviewed/Updated: Yes Orders Last 24hrs: Active Orders 24 hr Category Date Time Status Admission Status [Patient Status] [ADT] Stat ADT 10/06/17 16:10 Active Ambulate [RC] ASDIRECTED Care 10/06/17 16:42 Ordered Cardiac Monitoring [RC] . DIRECTED Care 10/06/17 16:11 Active EKG Documentation Completion [RC] STAT Care 10/06/17 13:39 Active Height and Weight [RC] DAILY Care 10/06/17 16:42 Ordered Intake and Output Strict [RC] ASDIRECTED Care 10/06/17 16:42 Ordered Oxygen Therapy [RC] PRN Care 10/06/17 16:42 Ordered Telemetry Monitoring [Cardiac Monitoring] [RC] . Care 10/06/17 15:57 Active DIRECTED Up With Assistance [RC] ASDIRECTED Care 10/06/17 16:42 Ordered VTE/DVT Education [RC] PER UNIT ROUTINE Care 10/06/17 16:42 Ordered Vital Signs [RC] Q4H Care 10/06/17 16:42 Ordered 2 Gram Sodium Diet [DIET] Diet 10/06/17 Dinner Ordered Sodium Chloride 0.9% [Saline Flush] Med 10/06/17 13:39 Active 10 ml FLUSH ASDIRECTED PRN Sodium Chloride 0.9% [Saline Flush] Med 10/06/17 13:39 Active 2.5 ml FLUSH ASDIRECTED PRN Saline Lock Insert [OM.PC] Stat Oth 10/06/17 13:39 Ordered Resuscitation Status Routine Resus Stat 10/06/17 16:42 Ordered Medication Orders Sodium Chloride (Saline Flush) 10 ml FLUSH ASDIRECTED PRN PRN Reason: Keep Vein Open Sodium Chloride (Saline Flush) 2.5 ml FLUSH ASDIRECTED PRN PRN Reason: Keep Vein Open Assessment/Plan Comment:: This 86 year old female admitted with acute systolic CHF 1. Acute systolic CHF: Secondary to pacemaker at [facility] and recent acute illness with IVf administration. Recent ECHO August 2017, EF 35-40%. Will continue Lasix 40 mg IV daily. Strict I/O, daily weights and 2 L FL. Monitor labwork in am. [place] brizuela. 2. Back pain: Stable. Continue pain management as at [facility] 3. HTN: Monitor with diuresis. BPs normally range 80-110/60s. Continue Coreg. VTE prophylaxis: heparin Q12hr. Dispo: 1-2 days pending improvement.
[2017-10-06] MEDS ORDERED: traMADol 50 MG Tab PO PRN (17:45)
[2017-10-06] MEDS ORDERED: Bisacodyl 10 MG Supp RECTAL PRN (17:45)
[2017-10-06] MEDS: Cyclobenzaprine 5 MG Tab PO PRN (18:19)
[2017-10-06] MEDS: Acetaminophen/HYDROcodone 325-5 MG Tab PO PRN (18:20)
[2017-10-06] MEDS: Docusate Sodium 100 MG Cap PO SCH (21:45)
[2017-10-07] MEDS: Acetaminophen/HYDROcodone 325-5 MG Tab PO PRN ×2 (08:01→17:23)
[2017-10-07] MEDS: Furosemide 40 MG/4 ML VIAL IVPUSH SCH ×2 (08:16→14:19)
[2017-10-07] MEDS: Carvedilol 12.5 MG Tab PO SCH (08:17)
[2017-10-07] MEDS: Vitamin E (dl-alpha-tocopherol acetate) 400 Unit Cap PO SCH (08:17)
[2017-10-07] MEDS: Docusate Sodium 100 MG Cap PO SCH ×2 (08:17→21:02)
[2017-10-07] MEDS: Calcitonin (Salmon) Nasal Spray 3.7 ML Bottle NAS SCH (08:18)
[2017-10-07] MEDS: Aspirin 81 MG Tab.EC PO SCH (08:18)
[2017-10-07] MEDS: Iron Polysaccharides Complex 150 MG Cap PO SCH (08:18)
--- NOTE | 2017-10-07 14:22 | PCM.PN ---
- General Info Date of Service: 10/07/17 - Review of Systems Systems Review Comment:: reports back pain, shortness of breath. - Patient Data Vitals - Most Recent: Last Vital Signs Temp 35.8 C 10/07/17 12:00 Pulse 64 10/07/17 12:00 Resp 20 10/07/17 12:00 BP 116/53 L 10/07/17 12:00 Pulse Ox 93 L 10/07/17 12:00 Weight - Most Recent: 72.802 kg I&O - Last 24 Hours: Intake & Output 10/06/17 10/07/17 10/07/17 22:59 06:59 14:59 Intake Total 200 Output Total 800 Balance -600 Lab Results Last 24 Hours: Laboratory Results - last 24 hr 10/06/17 10/06/17 10/06/17 Range/Units 14:35 14:35 14:35 WBC 5.68 (4.0-11.0) K/uL RBC 3.76 L (4.30-5.90) M/uL Hgb 11.6 L (12.0-16.0) g/dL Hct 35.5 L (36.0-46.0) % MCV 94.4 (80.0-98.0) fL MCH 30.9 (27.0-32.0) pg MCHC 32.7 (31.0-37.0) g/dL RDW Std Deviation 56.6 (28.0-62.0) fl RDW Coeff of Sylwia 17 H (11.0-15.0) % Plt Count 228 (150-400) K/uL MPV 10.20 (7.40-12.00) fL Neut % (Auto) 65.1 (48.0-80.0) % Lymph % (Auto) 21.5 (16.0-40.0) % [place] % (Auto) 10.9 (0.0-15.0) % Eos % (Auto) 2.3 (0.0-7.0) % Baso % (Auto) 0.2 (0.0-1.5) % Neut # (Auto) 3.7 (1.4-5.7) K/uL Lymph # (Auto) 1.2 (0.6-2.4) K/uL [place] # (Auto) 0.6 (0.0-0.8) K/uL Eos # (Auto) 0.1 (0.0-0.7) K/uL Baso # (Auto) 0.0 (0.0-0.1) K/uL Nucleated RBC % 0.0 /100WBC Nucleated RBCs # 0 K/uL Sodium 139 (136-145) mmol/L Potassium 3.9 (3.5-5.1) mmol/L Chloride 106 (98-107) mmol/L Carbon Dioxide 18.5 L (21.0-32.0) mmol/L BUN 34 H (7.0-18.0) mg/dL Creatinine 1.5 H (0.6-1.0) mg/dL Est Cr Clr Drug Dosing TNP Estimated GFR (MDRD) 32.8 ml/min Glucose 128 H (74-106) mg/dL Calcium 8.6 (8.5-10.1) mg/dL Total Bilirubin 0.9 (0.2-1.0) mg/dL AST 46 H (15-37) IU/L ALT 112 H (14-63) IU/L Alkaline Phosphatase 118 H (46-116) U/L Troponin I < 0.050 (0.000-0.056) ng/mL B-Natriuretic Peptide 3014 H (<100) PG/ML Total Protein 6.1 L (6.4-8.2) g/dL Albumin 3.0 L (3.4-5.0) g/dL Globulin 3.1 (2.0-3.5) g/dL Albumin/Globulin Ratio 1.0 L (1.3-2.8) 18 18 Range/Units 06:05 06:05 WBC 5.19 (4.0-11.0) K/uL RBC 3.46 L (4.30-5.90) M/uL Hgb 10.5 L (12.0-16.0) g/dL Hct 32.8 L (36.0-46.0) % MCV 94.8 (80.0-98.0) fL MCH 30.3 (27.0-32.0) pg MCHC 32.0 (31.0-37.0) g/dL RDW Std Deviation 56.2 (28.0-62.0) fl RDW Coeff of Sylwia 16 H (11.0-15.0) % Plt Count 212 (150-400) K/uL MPV 10.10 (7.40-12.00) fL Neut % (Auto) 62.5 (48.0-80.0) % Lymph % (Auto) 22.5 (16.0-40.0) % [place] % (Auto) 12.5 (0.0-15.0) % Eos % (Auto) 2.3 (0.0-7.0) % Baso % (Auto) 0.2 (0.0-1.5) % Neut # (Auto) 3.2 (1.4-5.7) K/uL Lymph # (Auto) 1.2 (0.6-2.4) K/uL [place] # (Auto) 0.7 (0.0-0.8) K/uL Eos # (Auto) 0.1 (0.0-0.7) K/uL Baso # (Auto) 0.0 (0.0-0.1) K/uL Nucleated RBC % 0.0 /100WBC Nucleated RBCs # 0 K/uL Sodium 141 (136-145) mmol/L Potassium 3.7 (3.5-5.1) mmol/L Chloride 107 (98-107) mmol/L Carbon Dioxide 21.1 (21.0-32.0) mmol/L BUN 32 H (7.0-18.0) mg/dL Creatinine 1.4 H (0.6-1.0) mg/dL Est Cr Clr Drug Dosing 31.04 Estimated GFR (MDRD) 35.5 ml/min Glucose 97 (74-106) mg/dL Calcium 8.4 L (8.5-10.1) mg/dL Total Bilirubin (0.2-1.0) mg/dL AST (15-37) IU/L ALT (14-63) IU/L Alkaline Phosphatase (46-116) U/L Troponin I (0.000-0.056) ng/mL B-Natriuretic Peptide (<100) PG/ML Total Protein (6.4-8.2) g/dL Albumin (3.4-5.0) g/dL Globulin (2.0-3.5) g/dL Albumin/Globulin Ratio (1.3-2.8) Med Orders - Current: Current Medications Hydrocodone Bitart/Acetaminophen ([place] 325-5 Mg) 1 tab PO Q4H PRN PRN Reason: Pain Last Admin: 10/07/17 08:01 Dose: 1 tab Aspirin (Halfprin) 81 mg PO DAILY [facility] Last Admin: 10/07/17 08:18 Dose: 81 mg Bisacodyl (Dulcolax) 10 mg RECTAL DAILY PRN PRN Reason: Constipation Calcitonin [place] (Miacalcin Nasal [place]) 3.7 ml TARSHA DAILY [facility] Last Admin: 10/07/17 08:18 Dose: Not Given Carvedilol (Coreg) 12.5 mg PO DAILY [facility] Last Admin: 10/07/17 08:17 Dose: 12.5 mg Cyclobenzaprine HCl (Flexeril) 5 mg PO BID PRN PRN Reason: muscle spasms,back pain Last Admin: 10/06/17 18:19 Dose: 5 mg Docusate Sodium (Colace) 100 mg PO BID [facility] Last Admin: 10/07/17 08:17 Dose: 100 mg Furosemide (Lasix) 40 mg IVPUSH BIDDIURETIC [facility] Last Admin: 10/07/17 08:16 Dose: 40 mg Polysaccharide Iron Complex (Ferrex 150) 150 mg PO DAILY [facility] Last Admin: 10/07/17 08:18 Dose: 150 mg Sodium Chloride (Saline Flush) 10 ml FLUSH ASDIRECTED PRN PRN Reason: Keep Vein Open Sodium Chloride (Saline Flush) 2.5 ml FLUSH ASDIRECTED PRN PRN Reason: Keep Vein Open Tramadol HCl (Ultram) 50 mg PO BID PRN PRN Reason: Pain Vitamin E (Vitamin E) 400 units PO DAILY [facility] Last Admin: 10/07/17 08:17 Dose: 400 units Discontinued Medications Furosemide (Lasix) 40 mg IVPUSH NOW ONE Stop: 10/06/17 15:13 Last Admin: 10/06/17 15:28 Dose: 40 mg Sodium Chloride (Normal Saline) 1,000 mls @ 999 mls/hr IV STAT ONE Stop: 10/06/17 14:56 Last Admin: 10/06/17 14:47 Dose: 999 mls/hr - Exam General: Alert, Oriented Lungs: Clear to Auscultation, Normal Respiratory Effort Cardiovascular: Regular Rate, Regular Rhythm GI/Abdominal Exam: Soft, Non-Tender Extremities: No Pedal Edema Skin: Warm, Dry, Intact - Problem List Review Problem List Initiated/Reviewed/Updated: Yes - My Orders Last 24 Hours: My Active Orders 10/06/17 15:57 Telemetry Monitoring [Cardiac Monitoring] [RC] . DIRECTED - Plan Plan:: This 86 year old female admitted with acute systolic CHF 1. Acute systolic CHF: continue BID lasix 2. Back pain: Stable. Continue pain management as at [place] 3. HTN: Monitor with diuresis. BPs normally range 80-110/60s. Continue Coreg. VTE prophylaxis: heparin Q12hr. Dispo: 1-2 days pending improvement.
[2017-10-08] MEDS: Acetaminophen/HYDROcodone 325-5 MG Tab PO PRN ×2 (00:30→21:53)
[2017-10-08] MEDS ORDERED: Potassium Chloride 20 MEQ Tab.ER PO ONE ×2 (08:24→09:48)
[2017-10-08] MEDS: Iron Polysaccharides Complex 150 MG Cap PO SCH (08:43)
[2017-10-08] MEDS: Vitamin E (dl-alpha-tocopherol acetate) 400 Unit Cap PO SCH (08:43)
[2017-10-08] MEDS: Docusate Sodium 100 MG Cap PO SCH ×2 (08:43→20:18)
[2017-10-08] MEDS: Furosemide 40 MG/4 ML VIAL IVPUSH SCH ×2 (08:44→14:28)
[2017-10-08] MEDS: Aspirin 81 MG Tab.EC PO SCH (08:44)
[2017-10-08] MEDS: Cyclobenzaprine 5 MG Tab PO PRN (08:44)
[2017-10-08] MEDS: Carvedilol 12.5 MG Tab PO SCH (08:44)
--- NOTE | 2017-10-08 09:49 | PCM.PN ---
- General Info Date of Service: 10/08/17 - Review of Systems Systems Review Comment:: reports chronic back pain, breathing has improved - Patient Data Vitals - Most Recent: Last Vital Signs Temp 36.4 C 10/08/17 08:00 Pulse 66 10/08/17 08:44 Resp 20 10/08/17 08:00 BP 140/88 10/08/17 08:44 Pulse Ox 99 10/08/17 08:00 Weight - Most Recent: 72 kg I&O - Last 24 Hours: Intake & Output 10/07/17 10/08/17 10/08/17 22:59 06:59 14:59 Intake Total 450 300 Output Total 2550 1300 Balance -2100 -1000 Lab Results Last 24 Hours: Laboratory Results - last 24 hr 10/08/17 10/08/17 Range/Units 05:25 05:25 WBC 5.28 (4.0-11.0) K/uL RBC 3.48 L (4.30-5.90) M/uL Hgb 10.5 L (12.0-16.0) g/dL Hct 32.5 L (36.0-46.0) % MCV 93.4 (80.0-98.0) fL MCH 30.2 (27.0-32.0) pg MCHC 32.3 (31.0-37.0) g/dL RDW Std Deviation 54.7 (28.0-62.0) fl RDW Coeff of Sylwia 16 H (11.0-15.0) % Plt Count 219 (150-400) K/uL MPV 10.10 (7.40-12.00) fL Neut % (Auto) 57.9 (48.0-80.0) % Lymph % (Auto) 27.5 (16.0-40.0) % [place] % (Auto) 11.4 (0.0-15.0) % Eos % (Auto) 3.0 (0.0-7.0) % Baso % (Auto) 0.2 (0.0-1.5) % Neut # (Auto) 3.1 (1.4-5.7) K/uL Lymph # (Auto) 1.5 (0.6-2.4) K/uL [place] # (Auto) 0.6 (0.0-0.8) K/uL Eos # (Auto) 0.2 (0.0-0.7) K/uL Baso # (Auto) 0.0 (0.0-0.1) K/uL Nucleated RBC % 0.0 /100WBC Nucleated RBCs # 0 K/uL Sodium 141 (136-145) mmol/L Potassium 3.3 L (3.5-5.1) mmol/L Chloride 106 (98-107) mmol/L Carbon Dioxide 22.5 (21.0-32.0) mmol/L BUN 31 H (7.0-18.0) mg/dL Creatinine 1.3 H (0.6-1.0) mg/dL Est Cr Clr Drug Dosing 33.43 mL/min Estimated GFR (MDRD) 38.7 ml/min Glucose 96 (74-106) mg/dL Calcium 8.5 (8.5-10.1) mg/dL Med Orders - Current: Current Medications Hydrocodone Bitart/Acetaminophen ([place] 325-5 Mg) 1 tab PO Q4H PRN PRN Reason: Pain Last Admin: 10/08/17 00:30 Dose: 1 tab Aspirin (Halfprin) 81 mg PO DAILY [facility] Last Admin: 10/08/17 08:44 Dose: 81 mg Bisacodyl (Dulcolax) 10 mg RECTAL DAILY PRN PRN Reason: Constipation Last Admin: 10/07/17 21:02 Dose: 10 mg Calcitonin [place] (Miacalcin Nasal [place]) 3.7 ml TARSHA DAILY [facility] Last Admin: 10/07/17 08:18 Dose: Not Given Carvedilol (Coreg) 12.5 mg PO DAILY [facility] Last Admin: 10/08/17 08:44 Dose: 12.5 mg Cyclobenzaprine HCl (Flexeril) 5 mg PO BID PRN PRN Reason: muscle spasms,back pain Last Admin: 10/08/17 08:44 Dose: 5 mg Docusate Sodium (Colace) 100 mg PO BID [facility] Last Admin: 10/08/17 08:43 Dose: 100 mg Furosemide (Lasix) 40 mg IVPUSH BIDDIURETIC [facility] Last Admin: 10/08/17 08:44 Dose: 40 mg Polysaccharide Iron Complex (Ferrex 150) 150 mg PO DAILY [facility] Last Admin: 10/08/17 08:43 Dose: 150 mg Sodium Chloride (Saline Flush) 10 ml FLUSH ASDIRECTED PRN PRN Reason: Keep Vein Open Sodium Chloride (Saline Flush) 2.5 ml FLUSH ASDIRECTED PRN PRN Reason: Keep Vein Open Tramadol HCl (Ultram) 50 mg PO BID PRN PRN Reason: Pain Vitamin E (Vitamin E) 400 units PO DAILY [facility] Last Admin: 10/08/17 08:43 Dose: 400 units Discontinued Medications Furosemide (Lasix) 40 mg IVPUSH NOW ONE Stop: 10/06/17 15:13 Last Admin: 10/06/17 15:28 Dose: 40 mg Sodium Chloride (Normal Saline) 1,000 mls @ 999 mls/hr IV STAT ONE Stop: 10/06/17 14:56 Last Admin: 10/06/17 14:47 Dose: 999 mls/hr Potassium Chloride (Klor-Con M20) 20 meq PO ONETIME ONE Stop: 10/08/17 08:25 Last Admin: 10/08/17 08:43 Dose: 20 meq - Exam General: Alert, Oriented Lungs: Clear to Auscultation, Normal Respiratory Effort Cardiovascular: Regular Rate, Regular Rhythm GI/Abdominal Exam: Soft, Non-Tender, No Distention Back Exam: Paraspinal Tenderness Extremities: Normal Range of Motion, Non-Tender Skin: Warm, Dry, Intact Neurological: No New Focal Deficit - Problem List Review Problem List Initiated/Reviewed/Updated: Yes - My Orders Last 24 Hours: My Active Orders 10/08/17 09:48 Potassium Chloride [Klor-Con M20] 40 meq PO ONETIME ONE - Plan Plan:: This 86 year old female admitted with acute systolic CHF 1. Acute systolic CHF: continue BID lasix 2. Back pain: Stable. Continue pain management as at [place] 3. HTN: Monitor with diuresis. BPs normally range 80-110/60s. Continue Coreg. VTE prophylaxis: heparin Q12hr. Dispo: back to [place] tomorrow
[2017-10-08] MEDS: Calcitonin (Salmon) Nasal Spray 3.7 ML Bottle NAS SCH ×2 (10:36→10:46)
[2017-10-09] MEDS: Acetaminophen/HYDROcodone 325-5 MG Tab PO PRN (06:20)
[2017-10-09] MEDS: Vitamin E (dl-alpha-tocopherol acetate) 400 Unit Cap PO SCH (08:05)
[2017-10-09] MEDS: Iron Polysaccharides Complex 150 MG Cap PO SCH (08:06)
[2017-10-09] MEDS: Docusate Sodium 100 MG Cap PO SCH (08:06)
[2017-10-09] MEDS: Furosemide 40 MG/4 ML VIAL IVPUSH SCH (08:06)
[2017-10-09] MEDS: Aspirin 81 MG Tab.EC PO SCH (08:06)
[2017-10-09] MEDS: Calcitonin (Salmon) Nasal Spray 3.7 ML Bottle NAS SCH (08:09)
--- NOTE | 2017-10-09 08:49 | PCM.DCSUM1 ---
Discharge Summary - Hospital Course Brief History: This 86 year old female with pmh of pacemaker at end of life, HTN , CHF with EF 35-40% and chronic back pain from L1-L3 compression fractures presented to the ED today with complaints of shortness of breath which occurs intermittently per her report. She reports it has been happening for the last couple days and today she was up ambulating a short distance and then sat down feeling more short of breath. She also reports edema to her legs which has waxed and waned, feeling a little improved from a day or two ago. She denies chest pain or palpitations. No abdominal pain. No dysuria. No numbness or tingling or focal neurologic deficits. She reports back pain has been well controlled last couple days, but it is worse with her up ambulating. In the ED hgb 11.6, no leukocytosis, BUN 35, Cr 1.5. AST 46, ALT 112, Alk phos 118. CXR revealed cardiomegaly with bibasilar atelectasis vs infiltrate, correlate with CHF exacerbation. She was admitted last week and discharged to [place] on Monday10/02/2017. She was treated with IVFs for HUYEN, Dr Palmer consulted. CHF is likely due to pacemaker at [facility]. - Discharge Data Discharge Date: 10/09/17 Discharge Disposition: DC/Tfer to SNF 03 Condition: Good - Discharge Diagnosis/Problem(s) (1) CHF exacerbation SNOMED Code(s): 88305038 ICD Code: I50.9 - HEART FAILURE, UNSPECIFIED Status: Acute Current Visit : Yes Qualifiers: Heart failure type: systolic Qualified Code(s): I50.23 - Acute on chronic systolic (congestive) heart failure (2) Peripheral edema SNOMED Code(s): 156677530 ICD Code: R60.9 - EDEMA, UNSPECIFIED Status: Acute Current Visit: Yes (3) Compression fracture of L3 lumbar vertebra SNOMED Code(s): 780166814 ICD Code: S32.030A - WEDGE COMPRESSION FRACTURE OF THIRD LUMBAR VERTEBRA, INIT Status: Chronic Current Visit: No Qualifiers: Encounter type: subsequent encounter Fracture type: closed (4) Aortic valve regurgitation SNOMED Code(s): 04138486 ICD Code: I35.1 - NONRHEUMATIC AORTIC (VALVE) INSUFFICIENCY Status: Chronic Current Visit: No Qualifiers: Cardiac valve disease etiology: nonrheumatic Qualified Code(s): I35.1 - Nonrheumatic aortic (valve) insufficiency (5) History of bradycardia SNOMED Code(s): 868470013601982 ICD Code: Z86.79 - PERSONAL HISTORY OF OTHER DISEASES OF THE CIRCULATORY SYSTEM Status: Chronic Current Visit: No (6) Hypertension SNOMED Code(s): 44514734 ICD Code: I10 - ESSENTIAL (PRIMARY) HYPERTENSION Status: Chronic Priority : Low Current Visit: No Qualifiers: Hypertension type: essential hypertension Qualified Code(s): I10 - Essential (primary) hypertension (7) Mitral valve regurgitation SNOMED Code(s): 91712687 ICD Code: I34.0 - NONRHEUMATIC MITRAL (VALVE) INSUFFICIENCY Status: Chronic Current Visit: No Qualifiers: Cardiac valve disease etiology: nonrheumatic Qualified Code(s): I34.0 - Nonrheumatic mitral (valve) insufficiency (8) Non-ischemic cardiomyopathy SNOMED Code(s): 24506365 ICD Code: I42.8 - OTHER CARDIOMYOPATHIES Status: Chronic Current Visit: No (9) 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 SNOMED Code(s): 145264091 ICD Code: Z45.010 - ENCNTR FOR CHECKING AND TEST OF CARD PACEMAKER PULSE GNRTR Status: Chronic Current Visit: No (10) Sleep apnea SNOMED Code(s): 43270813 ICD Code: G47.30 - SLEEP APNEA, UNSPECIFIED Status: Chronic Current Visit : No - Discharge Plan Prescriptions/Med Rec: Acetaminophen/HYDROcodone [[place] 325-5 MG] 1 tab PO Q4H PRN #20 tablet PRN Reason: Pain Furosemide 20 mg PO BID #30 tablet traMADol [Ultram] 50 mg PO BID PRN #20 tablet PRN Reason: Pain Home Medications: Home Meds Aspirin [Adult Low Dose Aspirin [facility]] 81 mg PO DAILY 04/01/14 [History] Carvedilol [Coreg] 12.5 mg PO DAILY 05/11/17 [History] Vitamin E 400 unit PO DAILY 05/14/17 [History] Acetaminophen [Tylenol Extra Strength] 500 mg PO Q6H PRN tablet 10/02/17 [Rx] Bisacodyl [Dulcolax] 10 mg RECTAL DAILY PRN #10 supp 10/02/17 [Rx] Calcitonin ([place]) [Miacalcin Nasal [place]] 1 spray TARSHA DAILY #1 bottle [Rx] Cyclobenzaprine [Flexeril] 5 mg PO BID PRN #20 tablet 10/02/17 [Rx] Docusate Sodium [Colace] 100 mg PO BID cap 10/02/17 [Rx] Iron Polysaccharides Complex [Ferrex 150] 150 mg PO DAILY #20 cap 10/02/17 [Rx] Acetaminophen/HYDROcodone [[place] 325-5 MG] 1 tab PO Q4H PRN #20 tablet 10/09/17 [Rx] Furosemide 20 mg PO BID #30 tablet 10/09/17 [Rx] traMADol [Ultram] 50 mg PO BID PRN #20 tablet 10/09/17 [Rx] Referrals: Jefferson Palmer MD [Physician] - 10/11/17 11:30 am PCP,Unknown [Primary Care Provider] - Chema Silverman MD [Physician] - (Next [place] rounds) - Discharge Summary/Plan Comment DC Time >30 min.: No Discharge Summary/Plan Comment: Discharge Diagnoses: Acute systolic CHF Back pain chronic Compression fracture L1-L3, chronic HTN Non-ischemic cardiomyopathy Pacemaker at [facility] MV regurgitation MARJORIE Kristin was admitted for acute on chronic systolic heart failure eacerbation. She was treated with BID dosing of IV lasix 40 mg. She diuresed well. She was placed on 2 L FR aong with heart healthy low sodium diet. Today she is feeling much better. No further dyspnea and back pain is actually feeling a lot better as well. She will be transferred back to [place] today. I will increase her Lasix to 20 mg PO BID. She has appointment with Dr Palmer on 10/11, so he will be able to evaluate the need to continue this or decrease it back to Lasix 20 mg daily. She is to return to the ED or clinic if concerns should arise. She will follow with Dr Silverman on next [place] rounds. - General Info Date of Service: 10/09/17 Admission Dx/Problem (Free Text: Admission Diagnosis/Problem Admission Diagnosis/Problem CHF, Congestive heart failure Subjective Update: Sitting up in the chair. Appears content and is reporting feeling really good this morning. She reports back pain is well controlled, unless she moves a lot. Shortness of breath has resolved. Leg edema has improved but continues slightly. She feels she is ready to go back to [place]. Functional Status: Reports: Pain Controlled, Tolerating Diet, Ambulating, Urinating - Review of Systems General: Reports: No Symptoms. Denies: Fever, Weakness, Fatigue HEENT: Reports: No Symptoms. Denies: Headaches, Sore Throat, Visual Changes Pulmonary: Reports: No Symptoms. Denies: Shortness of Breath Cardiovascular: Reports: Edema (but improved). Denies: Chest Pain Gastrointestinal: Reports: No Symptoms. Denies: Abdominal Pain, Nausea, Vomiting Genitourinary: Reports: No Symptoms. Denies: Dysuria, Frequency, Burning Musculoskeletal: Reports: Back Pain (improved and feeling good this morning. ) Neurological: Reports: No Symptoms Psychiatric: Reports: No Symptoms - Patient Data Vitals - Most Recent: Last Vital Signs Temp 98.2 F 10/09/17 04:00 Pulse 58 L 10/09/17 04:00 Resp 17 10/09/17 04:00 BP 116/56 L 10/09/17 04:00 Pulse Ox 96 10/09/17 04:00 Weight - Most Recent: 76.476 kg I&O - Last 24 hours: Intake & Output 10/08/17 10/09/17 10/09/17 22:59 06:59 14:59 Intake Total 876 900 Output Total 1200 1000 Balance -324 -100 Lab Results - Last 24 hrs: Laboratory Results - last 24 hr 10/09/17 10/09/17 Range/Units 05:20 05:20 WBC 4.49 (4.0-11.0) K/uL RBC 3.47 L (4.30-5.90) M/uL Hgb 10.4 L (12.0-16.0) g/dL Hct 32.4 L (36.0-46.0) % MCV 93.4 (80.0-98.0) fL MCH 30.0 (27.0-32.0) pg MCHC 32.1 (31.0-37.0) g/dL RDW Std Deviation 54.8 (28.0-62.0) fl RDW Coeff of Sylwia 16 H (11.0-15.0) % Plt Count 210 (150-400) K/uL MPV 10.10 (7.40-12.00) fL Neut % (Auto) 49.8 (48.0-80.0) % Lymph % (Auto) 33.9 (16.0-40.0) % [place] % (Auto) 13.4 (0.0-15.0) % Eos % (Auto) 2.7 (0.0-7.0) % Baso % (Auto) 0.2 (0.0-1.5) % Neut # (Auto) 2.2 (1.4-5.7) K/uL Lymph # (Auto) 1.5 (0.6-2.4) K/uL [place] # (Auto) 0.6 (0.0-0.8) K/uL Eos # (Auto) 0.1 (0.0-0.7) K/uL Baso # (Auto) 0.0 (0.0-0.1) K/uL Nucleated RBC % 0.0 /100WBC Nucleated RBCs # 0 K/uL Sodium 140 (136-145) mmol/L Potassium 3.6 (3.5-5.1) mmol/L Chloride 106 (98-107) mmol/L Carbon Dioxide 22.9 (21.0-32.0) mmol/L BUN 27 H (7.0-18.0) mg/dL Creatinine 1.2 H (0.6-1.0) mg/dL Est Cr Clr Drug Dosing 36.22 mL/min Estimated GFR (MDRD) 42.4 ml/min Glucose 101 (74-106) mg/dL Calcium 8.4 L (8.5-10.1) mg/dL Med Orders - Current: Current Medications Hydrocodone Bitart/Acetaminophen ([place] 325-5 Mg) 1 tab PO Q4H PRN PRN Reason: Pain Last Admin: 10/09/17 06:20 Dose: 1 tab Aspirin (Halfprin) 81 mg PO DAILY [facility] Last Admin: 10/09/17 08:06 Dose: 81 mg Bisacodyl (Dulcolax) 10 mg RECTAL DAILY PRN PRN Reason: Constipation Last Admin: 10/07/17 21:02 Dose: 10 mg Calcitonin [place] (Miacalcin Nasal [place]) 3.7 ml TARSHA DAILY [facility] Last Admin: 10/09/17 08:09 Dose: 1 spray Carvedilol (Coreg) 12.5 mg PO DAILY [facility] Last Admin: 10/08/17 08:44 Dose: 12.5 mg Cyclobenzaprine HCl (Flexeril) 5 mg PO BID PRN PRN Reason: muscle spasms,back pain Last Admin: 10/08/17 08:44 Dose: 5 mg Docusate Sodium (Colace) 100 mg PO BID [facility] Last Admin: 10/09/17 08:06 Dose: 100 mg Furosemide (Lasix) 40 mg IVPUSH BIDDIURETIC [facility] Last Admin: 10/09/17 08:06 Dose: 40 mg Polysaccharide Iron Complex (Ferrex 150) 150 mg PO DAILY [facility] Last Admin: 10/09/17 08:06 Dose: 150 mg Sodium Chloride (Saline Flush) 10 ml FLUSH ASDIRECTED PRN PRN Reason: Keep Vein Open Sodium Chloride (Saline Flush) 2.5 ml FLUSH ASDIRECTED PRN PRN Reason: Keep Vein Open Tramadol HCl (Ultram) 50 mg PO BID PRN PRN Reason: Pain Last Admin: 10/08/17 15:25 Dose: 50 mg Vitamin E (Vitamin E) 400 units PO DAILY [facility] Last Admin: 10/09/17 08:05 Dose: 400 units Discontinued Medications Furosemide (Lasix) 40 mg IVPUSH NOW ONE Stop: 10/06/17 15:13 Last Admin: 10/06/17 15:28 Dose: 40 mg Sodium Chloride (Normal Saline) 1,000 mls @ 999 mls/hr IV STAT ONE Stop: 10/06/17 14:56 Last Admin: 10/06/17 14:47 Dose: 999 mls/hr Potassium Chloride (Klor-Con M20) 20 meq PO ONETIME ONE Stop: 10/08/17 08:25 Last Admin: 10/08/17 08:43 Dose: 20 meq Potassium Chloride (Klor-Con M20) 40 meq PO ONETIME ONE Stop: 10/08/17 09:49 Last Admin: 10/08/17 10:37 Dose: 40 meq - Exam Quality Assessment: Reports: DVT Prophylaxis. Denies: Supplemental Oxygen General: Reports: Alert, Oriented, Cooperative, No Acute Distress Neck: Reports: Supple, No JVD Lungs: Reports: Clear to Auscultation, Normal Respiratory Effort Cardiovascular: Reports: Regular Rate, Regular Rhythm Back Exam: Reports: Normal Inspection, Full Range of Motion Extremities: Normal Range of Motion, Non-Tender, Pedal Edema (+1 pitting edema to feet and lower legs. ) Skin: Reports: Warm, Dry Neurological: Reports: No New Focal Deficit Psy/Mental Status: Reports: Alert, Normal Affect, Normal Mood
[2017-10-09] MEDS: Carvedilol 12.5 MG Tab PO SCH (09:36)
[2017-10-09 11:58] VITALS: BP 110/31
== END 2017-10-09 13:00 ==
LOC: MW.ED 13:33 → MW.MS 17:44
PROVIDERS: ADMIT Internal Medicine; ATTEND Internal Medicine
DX: T82.897A Other specified complication of cardiac prosthetic devices, implants and grafts, initial encounter (principal); I11.0 Hypertensive heart disease with heart failure; I50.23 Acute on chronic systolic (congestive) heart failure; S32.010A Wedge compression fracture of first lumbar vertebra, initial encounter for closed fracture; I35.1 Nonrheumatic aortic (valve) insufficiency; I34.0 Nonrheumatic mitral (valve) insufficiency; I42.8 Other cardiomyopathies; G47.30 Sleep apnea, unspecified; M19.90 Unspecified osteoarthritis, unspecified site; G89.29 Other chronic pain; M54.9 Dorsalgia, unspecified; Z79.82 Long term (current) use of aspirin; Z79.899 Other long term (current) drug therapy; Z95.0 Presence of cardiac pacemaker; Z66 Do not resuscitate
CPT/HCPCS: 36415; 71045; 80048; 80053; 83880; 84484; 85025; 93005; 96361; 96374; 99285; A9270; J1940; J7040; 96376; 99283; G0378

== ENCOUNTER 2018-05-03 14:55 | Inpatient (IN) | payer MEDICARE, OTHER ==
[2018-05-03] MEDS ORDERED: Sodium Chloride 0.9% 1,000 ML IV ONE (15:00)
[2018-05-03] MEDS ORDERED: Sodium Chloride 0.9% 2.5 ML Syringe FLUSH PRN (15:00)
[2018-05-03] MEDS ORDERED: Sodium Chloride 0.9% 10 ML Syringe FLUSH PRN (15:00)
--- NOTE | 2018-05-03 15:24 | EDM.PDOC ---
ED HPI GENERAL MEDICAL PROBLEM - General Chief Complaint: Trauma Stated Complaint: FELL Time Seen by Provider: 05/03/18 15:01 Source of Information: Reports: Patient History Limitations: Reports: No Limitations - History of Present Illness INITIAL COMMENTS - FREE TEXT/NARRATIVE: History of present illness: []Patient was brought in by EMS after falling down a flight of stairs. It is unclear if there was loss of consciousness, she was found by EMS with a GCS of 15 but O2 sat of 79% on room air. Patient was not responding appropriately but breathing on her own. Patient has had multiple frequent falls lately but is usually alert and oriented. Review of systems: As per history of present illness and below otherwise all systems reviewed and negative. Past medical history: As per history of present illness and as reviewed below otherwise noncontributory. Surgical history: As per history of present illness and as reviewed below otherwise noncontributory. Social history: No reported history of drug or alcohol abuse. Family history: As per history of present illness and as reviewed below otherwise noncontributory. Physical exam: General: Well developed, well nourished in NAD HEENT: Posterior scalp laceration, normocephalic, pupils reactive, negative for conjunctival pallor or scleral icterus, mucous membranes moist, throat clear, neck supple, nontender, trachea midline. Lungs: Clear to auscultation, breath sounds equal bilaterally, chest nontender. Heart: S1S2, regular, negative for clicks, rubs, or JVD. Abdomen: NABS, Soft, nondistended, nontender. Negative for masses or hepatosplenomegaly. Negative for costovertebral tenderness. Pelvis: Stable nontender. Genitourinary: Deferred. Rectal: Deferred. Extremities: Atraumatic, negative for cords or calf pain. Neurovascular unremarkable. Neuro: Awake, alert, oriented. Cranial nerves II through XII unremarkable. Cerebellum unremarkable. Motor and sensory unremarkable throughout. Exam nonfocal. Skin:warm and dry Diagnostics: CT head and neck negative for bleed or fracture, there are indetermined age T2 and T4 compression fractures. CBC, chemistry Therapeutics: ED Course: scalp wound closed with socorro, patient has been awake intermittently, but not recognizing her family members she has had frequent apneic spells while in the ED. Impression: Fall, possible anoxic brain injury Prescriptions: Plan: Admit for observation, patient is DNR and family wants comfort care only. Definitive disposition and diagnosis as appropriate pending reevaluation and review of above. - Related Data Allergies Allergy/AdvReac Type Severity Reaction Status Date / Time No Known Allergies Allergy Verified 10/06/17 14:43 Home Meds: Home Meds Aspirin [Adult Low Dose Aspirin EC] 81 mg PO DAILY 04/01/14 [History] Carvedilol [Coreg] 12.5 mg PO DAILY 05/11/17 [History] Vitamin E 400 unit PO DAILY 05/14/17 [History] Acetaminophen [Tylenol Extra Strength] 500 mg PO Q6H PRN tablet 10/02/17 [Rx] Bisacodyl [Dulcolax] 10 mg RECTAL DAILY PRN #10 supp 10/02/17 [Rx] Calcitonin ([place]) [Miacalcin Nasal [place]] 1 spray TARSHA DAILY #1 bottle [Rx] Cyclobenzaprine [Flexeril] 5 mg PO BID PRN #20 tablet 10/02/17 [Rx] Docusate Sodium [Colace] 100 mg PO BID cap 10/02/17 [Rx] Iron Polysaccharides Complex [Ferrex 150] 150 mg PO DAILY #20 cap 10/02/17 [Rx] Acetaminophen/HYDROcodone [[place] 325-5 MG] 1 tab PO Q4H PRN #20 tablet 10/09/17 [Rx] Furosemide 20 mg PO BID #30 tablet 10/09/17 [Rx] traMADol [Ultram] 50 mg PO BID PRN #20 tablet 10/09/17 [Rx] Past Medical History HEENT History: Reports: Cataract Cardiovascular History: Reports: Arrhythmia, Heart Failure, Pacemaker Respiratory History: Reports: None Gastrointestinal History: Reports: None Genitourinary History: Reports: None 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: Musculoskeletal History: Reports: Arthritis Other Musculoskeletal History: back surgery, 20 yrs ago Neurological History: Reports: None Psychiatric History: Reports: None Endocrine/Metabolic History: Reports: None Hematologic History: Reports: None Immunologic History: Reports: None Oncologic (Cancer) History: Reports: None Dermatologic History: Reports: None - Infectious Disease History Infectious Disease History: Reports: Chicken Pox, Measles, Mumps, Rubella, Shingles - Past Surgical History HEENT Surgical History: Reports: Cataract Surgery Cardiovascular Surgical History: Reports: Pacer Social & Family History - Family History Family Medical History: Noncontributory - Caffeine Use Caffeine Use: Reports: None - Living Situation & Occupation Living situation: Reports: Alone Occupation: Retired Review of Systems - Review of Systems Review Of Systems: ROS reveals no pertinent complaints other than HPI. ED EXAM, GENERAL - Physical Exam Exam: See Below (See history of present illness) Course - Orders/Labs/Meds Orders: Active Orders 24 hr Category Date Time Status Cardiac Monitoring [RC] . DIRECTED Care 05/03/18 15:00 Inactive UA W/MICROSCOPIC [URIN] Stat Lab 05/03/18 15:00 Ordered Sodium Chloride 0.9% [Saline Flush] Med 05/03/18 15:00 Active 10 ml FLUSH ASDIRECTED PRN Sodium Chloride 0.9% [Saline Flush] Med 05/03/18 15:00 Active 2.5 ml FLUSH ASDIRECTED PRN Saline Lock Insert [OM.PC] Stat Oth 05/03/18 15:00 Ordered Medication Orders Acetaminophen (Tylenol) 650 mg PO Q4H PRN PRN Reason: Fever Acetaminophen (Tylenol) 650 mg RECTAL Q4H PRN PRN Reason: Fever Atropine Sulfate (Atropine 1% Ophth Soln) 1 ml SL Q2H PRN PRN Reason: Other Docusate Sodium (Colace) 100 mg PO BID PRN PRN Reason: Constipation Lorazepam (Ativan) 1 mg IVPUSH Q4H PRN PRN Reason: Anxiety Morphine Sulfate (Morphine) 2 mg IVPUSH Q2H PRN PRN Reason: Pain (severe 7-10) Stop: 05/04/18 16:17 Morphine Sulfate (Morphine 10 Mg/0.5 Ml Oral Syringe) 5 mg SL .Q10MIN PRN PRN Reason: AIR HUNGER Ondansetron HCl (Zofran) 4 mg IVPUSH Q4H PRN PRN Reason: Nausea Polyethylene Glycol (Miralax) 17 gm PO DAILY PRN PRN Reason: Constipation Sodium Chloride (Saline Flush) 10 ml FLUSH ASDIRECTED PRN PRN Reason: Keep Vein Open Sodium Chloride (Saline Flush) 2.5 ml FLUSH ASDIRECTED PRN PRN Reason: Keep Vein Open Labs: Laboratory Tests 05/03/18 05/03/18 Range/Units 15:37 15:37 WBC 6.81 (4.0-11.0) K/uL RBC 3.18 L (4.30-5.90) M/uL Hgb 9.8 L (12.0-16.0) g/dL Hct 29.9 L (36.0-46.0) % MCV 94.0 (80.0-98.0) fL MCH 30.8 (27.0-32.0) pg MCHC 32.8 (31.0-37.0) g/dL RDW Std Deviation 42.8 (28.0-62.0) fl RDW Coeff of Sylwia 13 (11.0-15.0) % Plt Count 130 L (150-400) K/uL MPV 10.80 (7.40-12.00) fL Add Manual Diff YES Neutrophils % (Manual) 72 (48.0-80.0) % Band Neutrophils % 6 % Lymphocytes % (Manual) 20 (16.0-40.0) % Monocytes % (Manual) 2 (0.0-15.0) % Nucleated RBC % 0.7 /100WBC Absolute Seg Neuts 4.9 (1.4-5.7) Band Neutrophils # 0.4 Lymphocytes # (Manual) 1.4 (0.6-2.4) Monocytes # (Manual) 0.1 (0.0-0.8) Nucleated RBCs # 0 K/uL Sodium 141 (136-145) mmol/L Potassium 4.7 (3.5-5.1) mmol/L Chloride 105 (98-107) mmol/L Carbon Dioxide 20.9 L (21.0-32.0) mmol/L BUN 24 H (7.0-18.0) mg/dL Creatinine 1.3 H (0.6-1.0) mg/dL Est Cr Clr Drug Dosing TNP Estimated GFR (MDRD) 38.6 ml/min Glucose 100 (74-106) mg/dL Calcium 9.1 (8.5-10.1) mg/dL Total Bilirubin 0.4 (0.2-1.0) mg/dL AST 32 (15-37) IU/L ALT 45 (14-63) IU/L Alkaline Phosphatase 60 (46-116) U/L Total Protein 6.1 L (6.4-8.2) g/dL Albumin 3.2 L (3.4-5.0) g/dL Globulin 2.9 (2.6-4.0) g/dL Albumin/Globulin Ratio 1.1 (0.9-1.6) Meds: Medications Generic Name Dose Route Start Last Admin Trade Name Shayla PRN Reason Stop Dose Admin Acetaminophen 650 mg 05/03/18 16:31 Tylenol PO Q4H PRN Fever Acetaminophen 650 mg 05/03/18 16:32 Tylenol RECTAL Q4H PRN Fever Atropine Sulfate 1 ml 05/03/18 16:19 Atropine 1% Ophth Soln SL Q2H PRN Other Docusate Sodium 100 mg 05/03/18 16:15 Colace PO BID PRN Constipation Lorazepam 1 mg 05/03/18 16:28 Ativan IVPUSH Q4H PRN Anxiety Morphine Sulfate 2 mg 05/03/18 16:15 Morphine IVPUSH 05/04/18 16:17 Q2H PRN Pain (severe 7-10) Morphine Sulfate 5 mg 05/03/18 17:41 Morphine 10 Mg/0.5 Ml Oral Syringe SL .Q10MIN PRN AIR HUNGER Ondansetron HCl 4 mg 05/03/18 16:15 Zofran IVPUSH Q4H PRN Nausea Polyethylene Glycol 17 gm 05/03/18 16:15 Miralax PO DAILY PRN Constipation Sodium Chloride 10 ml 05/03/18 15:00 Saline Flush FLUSH ASDIRECTED PRN Keep Vein Open Sodium Chloride 2.5 ml 05/03/18 15:00 Saline Flush FLUSH ASDIRECTED PRN Keep Vein Open Discontinued Medications Generic Name Dose Route Start Last Admin Trade Name Shayla PRN Reason Stop Dose Admin Sodium Chloride 1,000 mls @ 999 mls/hr 05/03/18 15:00 05/03/18 15:36 Normal Saline IV 05/03/18 16:00 999 mls/hr .Bolus ONE Administration Lorazepam 0.5 mg 05/03/18 16:04 05/03/18 16:08 Ativan IVPUSH 05/03/18 16:05 0.5 mg ONETIME ONE Administration Lorazepam Confirm 05/03/18 16:05 05/03/18 16:58 Ativan Administered 05/03/18 16:06 Not Given Dose 2 mg .ROUTE .STK-MED ONE Departure - Departure Time of Disposition: 19:50 Disposition: Home, Self-Care 01 Condition: Good, Critical Clinical Impression: Anoxic brain injury Fall Qualifiers: Encounter type: initial encounter Qualified Code(s): W19.XXXA - Unspecified fall, initial encounter Scalp laceration Qualifiers: Encounter type: initial encounter Qualified Code(s): S01.01XA - Laceration without foreign body of scalp, initial encounter - Discharge Information *PRESCRIPTION DRUG MONITORING PROGRAM REVIEWED*: No *COPY OF PRESCRIPTION DRUG MONITORING REPORT IN PATIENT DAMIÁN: No - My Orders Last 24 Hours: My Active Orders 05/03/18 15:00 Cardiac Monitoring [RC] . DIRECTED UA W/MICROSCOPIC [URIN] Stat Sodium Chloride 0.9% [Saline Flush] 10 ml FLUSH ASDIRECTED PRN Sodium Chloride 0.9% [Saline Flush] 2.5 ml FLUSH ASDIRECTED PRN Saline Lock Insert [OM.PC] Stat - Assessment/Plan Last 24 Hours: My Active Orders 05/03/18 15:00 Cardiac Monitoring [RC] . DIRECTED UA W/MICROSCOPIC [URIN] Stat Sodium Chloride 0.9% [Saline Flush] 10 ml FLUSH ASDIRECTED PRN Sodium Chloride 0.9% [Saline Flush] 2.5 ml FLUSH ASDIRECTED PRN Saline Lock Insert [OM.PC] Stat
--- NOTE | 2018-05-03 15:27 | CT ---
EXAMINATION: Non contrast CT head. Coronal and sagittal reformats. HISTORY: Pain FINDINGS: No evidence of intra or extra axial hemorrhage, mass, midline shift, hydrocephalus or edema. Mild generalized atrophy. Moderate periventricular and subcortical white matter hypodensities noted. No hypoattenuation changes in the major vascular territories to suggest acute infarct. No abnormal intracranial calcifications are detected. No evidence of substantial vascular calcifications. Paranasal sinuses and mastoid air cells are well aerated without substantial findings. Pituitary fossa appears unremarkable. Calvarium is intact. No evidence of skull fracture. IMPRESSION: 1. No acute intracranial findings. 2. Generalized atrophy and small vessel ischemic changes.
--- NOTE | 2018-05-03 15:33 | CT ---
EXAMINATION: CT cervical spine HISTORY: Pain COMPARISON: None TECHNIQUE: Axial CT imaging obtained through the cervical spine without contrast. Coronal and sagittal reconstructions obtained. FINDINGS: The osseous structures appear osteopenic. The cervical spinal alignment is normal. The vertebral body heights appear well maintained. The lung apices are clear. Mild endplate compression deformity noted at T2 and moderately at T4. IMPRESSION: 1. No acute findings noted within the cervical spine. 2. Age-indeterminate mild to moderate compression deformities at T2 and T4. 3. Generalized osteopenia
--- NOTE | 2018-05-03 15:34 | CR ---
EXAMINATION: Portable chest radiograph. HISTORY: Shortness of breath. COMPARISON: 10/06/2017. FINDINGS: The trachea is midline. The heart is normal in size. The cardiomediastinal silhouette is within normal limits. No pulmonary infiltrates, effusions or pneumothorax. Left-sided pacemaker noted. Chronic interstitial prominence. Osseous structures appear osteopenic. IMPRESSION: No acute cardiopulmonary process.
[2018-05-03] MEDS ORDERED: LORazepam 2 MG/ML SDV ONE (16:05)
[2018-05-03] MEDS: LORazepam 2 MG/ML SDV IVPUSH ONE ×3 (16:08→20:13)
[2018-05-03] MEDS ORDERED: Polyethylene Glycol 3350 Powder 17 GM Packet PO PRN (16:15)
[2018-05-03] MEDS ORDERED: Docusate Sodium 100 MG Cap PO PRN (16:15)
[2018-05-03] MEDS ORDERED: Morphine 10 MG/ML Syringe IVPUSH PRN (16:15)
[2018-05-03] MEDS ORDERED: Ondansetron 4 MG/2 ML SDV IVPUSH PRN (16:15)
[2018-05-03] MEDS ORDERED: Atropine 1% Ophth Soln 5 ML BOTTLE SL PRN (16:19)
[2018-05-03 16:28] LABS: CHLORIDE,CL 105 mmol/L (98-107); SODIUM,NA 141 mmol/L (136-145)
[2018-05-03] MEDS ORDERED: LORazepam 2 MG/ML SDV IVPUSH PRN (16:28)
[2018-05-03] MEDS ORDERED: Acetaminophen 325 MG Tab PO PRN (16:31)
[2018-05-03] MEDS ORDERED: Acetaminophen 650 MG Supp RECTAL PRN (16:32)
--- NOTE | 2018-05-03 17:14 | PCM.HP ---
H&P History of Present Illness - General Date of Service: 05/03/18 Admit Problem/Dx: Admission Diagnosis/Problem Admission Diagnosis/Problem Fall - History of Present Illness Initial Comments - Free Text/Narative: Kristin Castro is an 87 y/o female presenting to the ED via EMS after she had a witnessed fall down stairs. She was noted to have oxygen saturation in the 70's on room air and she was alert but incomprehensible. Nonverbal. CT head was negative for any intracranial hemorrhage. She received 1 L bolus of NS. Pupils were reactive bilaterally but she was agitated, moving extremities and incomprehensible. GCS was at best 10. Family decided comfort care measures for her and to be admitted, however, shortly after I was notified by ER staff that the patient had pulled out her IV and her O2 sats were worsening. I placed orders for comfort care measures, pain control, agitation and air hunger. - Related Data Allergies/Adverse Reactions: Allergies Allergy/AdvReac Type Severity Reaction Status Date / Time No Known Allergies Allergy Verified 10/06/17 14:43 Home Medications: Home Meds Aspirin [Adult Low Dose Aspirin EC] 81 mg PO DAILY 04/01/14 [History] Carvedilol [Coreg] 12.5 mg PO DAILY 05/11/17 [History] Vitamin E 400 unit PO DAILY 05/14/17 [History] Acetaminophen [Tylenol Extra Strength] 500 mg PO Q6H PRN tablet 10/02/17 [Rx] Bisacodyl [Dulcolax] 10 mg RECTAL DAILY PRN #10 supp 10/02/17 [Rx] Calcitonin ([place]) [Miacalcin Nasal [place]] 1 spray TARSHA DAILY #1 bottle [Rx] Cyclobenzaprine [Flexeril] 5 mg PO BID PRN #20 tablet 10/02/17 [Rx] Docusate Sodium [Colace] 100 mg PO BID cap 10/02/17 [Rx] Iron Polysaccharides Complex [Ferrex 150] 150 mg PO DAILY #20 cap 10/02/17 [Rx] Acetaminophen/HYDROcodone [[place] 325-5 MG] 1 tab PO Q4H PRN #20 tablet 10/09/17 [Rx] Furosemide 20 mg PO BID #30 tablet 10/09/17 [Rx] traMADol [Ultram] 50 mg PO BID PRN #20 tablet 10/09/17 [Rx] Past Medical History HEENT History: Reports: Cataract Cardiovascular History: Reports: Arrhythmia, Heart Failure, Pacemaker Respiratory History: Reports: None Gastrointestinal History: Reports: None Genitourinary History: Reports: None [employer]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: Musculoskeletal History: Reports: Arthritis Other Musculoskeletal History: back surgery, 20 yrs ago Neurological History: Reports: None Psychiatric History: Reports: None Endocrine/Metabolic History: Reports: None Hematologic History: Reports: None Immunologic History: Reports: None Oncologic (Cancer) History: Reports: None Dermatologic History: Reports: None - Infectious Disease History Infectious Disease History: Reports: Chicken Pox, Measles, Mumps, Rubella, Shingles - Past Surgical History HEENT Surgical History: Reports: Cataract Surgery Cardiovascular Surgical History: Reports: Pacer Social & Family History - Family History Family Medical History: Noncontributory - Caffeine Use Caffeine Use: Reports: None - Living Situation & Occupation Living situation: Reports: Alone Occupation: Retired H&P Review of Systems - Review of Systems: Review Of Systems: Unable To Obtain Exam - Exam Exam: See Below - Exam General: Alert, Severe Distress, Other (incomprehensible, agitated, non verbal.) HEENT: Pupils Equal, Pupils Reactive, Other (There is a posterior scalp laceration.) Lungs: Clear to Auscultation Cardiovascular: Regular Rate, Regular Rhythm GI/Abdominal Exam: Normal Bowel Sounds, Soft, Non-Tender Skin: Warm, Dry Neuro Extensive - Mental Status: Other (GCS of 10) - Patient Data Lab Results Last 24 hrs: Laboratory Results - last 24 hr 05/03/18 05/03/18 Range/Units 15:37 15:37 WBC 6.81 (4.0-11.0) K/uL RBC 3.18 L (4.30-5.90) M/uL Hgb 9.8 L (12.0-16.0) g/dL Hct 29.9 L (36.0-46.0) % MCV 94.0 (80.0-98.0) fL MCH 30.8 (27.0-32.0) pg MCHC 32.8 (31.0-37.0) g/dL RDW Std Deviation 42.8 (28.0-62.0) fl RDW Coeff of Sylwia 13 (11.0-15.0) % Plt Count 130 L (150-400) K/uL MPV 10.80 (7.40-12.00) fL Add Manual Diff YES Neutrophils % (Manual) 72 (48.0-80.0) % Band Neutrophils % 6 % Lymphocytes % (Manual) 20 (16.0-40.0) % Monocytes % (Manual) 2 (0.0-15.0) % Nucleated RBC % 0.7 /100WBC Absolute Seg Neuts 4.9 (1.4-5.7) Band Neutrophils # 0.4 Lymphocytes # (Manual) 1.4 (0.6-2.4) Monocytes # (Manual) 0.1 (0.0-0.8) Nucleated RBCs # 0 K/uL Sodium 141 (136-145) mmol/L Potassium 4.7 (3.5-5.1) mmol/L Chloride 105 (98-107) mmol/L Carbon Dioxide 20.9 L (21.0-32.0) mmol/L BUN 24 H (7.0-18.0) mg/dL Creatinine 1.3 H (0.6-1.0) mg/dL Est Cr Clr Drug Dosing TNP Estimated GFR (MDRD) 38.6 ml/min Glucose 100 (74-106) mg/dL Calcium 9.1 (8.5-10.1) mg/dL Total Bilirubin 0.4 (0.2-1.0) mg/dL AST 32 (15-37) IU/L ALT 45 (14-63) IU/L Alkaline Phosphatase 60 (46-116) U/L Total Protein 6.1 L (6.4-8.2) g/dL Albumin 3.2 L (3.4-5.0) g/dL Globulin 2.9 (2.6-4.0) g/dL Albumin/Globulin Ratio 1.1 (0.9-1.6) Result Diagrams: 05/03/18 15:37 05/03/18 15:37 Problem List Initiated/Reviewed/Updated: Yes Orders Last 24hrs: Active Orders 24 hr Category Date Time Status Patient Status [ADT] Stat ADT 05/03/18 16:02 Active Bedrest Bedside Commode [RC] ASDIRECTED Care 05/03/18 16:15 Active Cardiac Monitoring [RC] . DIRECTED Care 05/03/18 15:00 Inactive Oxygen Therapy [RC] PRN Care 05/03/18 16:15 Active VTE/DVT Education [RC] PER UNIT ROUTINE Care 05/03/18 16:15 Active Regular Diet [DIET] Diet 05/04/18 Breakfast Active UA W/MICROSCOPIC [URIN] Stat Lab 05/03/18 15:00 Ordered Acetaminophen [Tylenol] Med 05/03/18 16:31 Active 650 mg PO Q4H PRN Acetaminophen [Tylenol] Med 05/03/18 16:32 Active 650 mg RECTAL Q4H PRN Atropine 1% [Atropine 1% Ophth Soln] Med 05/03/18 16:19 Active 1 ml SL Q2H PRN Docusate Sodium [Colace] Med 05/03/18 16:15 Active 100 mg PO BID PRN LORazepam [Ativan] Med 05/03/18 16:28 Active 1 mg IVPUSH Q4H PRN Morphine Med 05/03/18 16:15 Active 2 mg IVPUSH Q2H PRN Ondansetron [Zofran] Med 05/03/18 16:15 Active 4 mg IVPUSH Q4H PRN Polyethylene Glycol 3350 [MiraLAX] Med 05/03/18 16:15 Active 17 gm PO DAILY PRN Sodium Chloride 0.9% [Saline Flush] Med 05/03/18 15:00 Active 10 ml FLUSH ASDIRECTED PRN Sodium Chloride 0.9% [Saline Flush] Med 05/03/18 15:00 Active 2.5 ml FLUSH ASDIRECTED PRN Saline Lock Insert [OM.PC] Stat Oth 05/03/18 15:00 Ordered Resuscitation Status Routine Resus Stat 05/03/18 16:15 Ordered Medication Orders Acetaminophen (Tylenol) 650 mg PO Q4H PRN PRN Reason: Fever Acetaminophen (Tylenol) 650 mg RECTAL Q4H PRN PRN Reason: Fever Atropine Sulfate (Atropine 1% Ophth Soln) 1 ml SL Q2H PRN PRN Reason: Other Docusate Sodium (Colace) 100 mg PO BID PRN PRN Reason: Constipation Lorazepam (Ativan) 1 mg IVPUSH Q4H PRN PRN Reason: Anxiety Morphine Sulfate (Morphine) 2 mg IVPUSH Q2H PRN PRN Reason: Pain (severe 7-10) Stop: 01/11/19 16:17 Ondansetron HCl (Zofran) 4 mg IVPUSH Q4H PRN PRN Reason: Nausea Polyethylene Glycol (Miralax) 17 gm PO DAILY PRN PRN Reason: Constipation Sodium Chloride (Saline Flush) 10 ml FLUSH ASDIRECTED PRN PRN Reason: Keep Vein Open Sodium Chloride (Saline Flush) 2.5 ml FLUSH ASDIRECTED PRN PRN Reason: Keep Vein Open Assessment/Plan Comment:: A: 1. Acute encephalopathy s/p fall 2. Acute respiratory failure 3. Scalp laceration P: 1. admit as observation to the medical floor. 2. Comfort care measures. 1. Family has decided to have patient on comfort care measures. I have placed orders to help with pain, air hunger, agitation and secretions. Will stop monitoring O2 sats. Treat symptomatically.
[2018-05-03] MEDS ORDERED: Morphine 10 MG/0.5 ML Oral Syringe SL PRN (17:41)
== END 2018-05-03 19:10 | disposition expired | DRG 951 ==
LOC: MW.ED 14:55 → MW.MS 16:02
PROVIDERS: ADMIT Internal Medicine; ATTEND Internal Medicine
PROC: 0HQ0XZZ Repair Scalp Skin, External Approach (ICD-10-PCS; principal; 2018-05-03)
DX: Z51.5 Encounter for palliative care (principal); J96.00 Acute respiratory failure, unspecified whether with hypoxia or hypercapnia; G93.1 Anoxic brain damage, not elsewhere classified; M48.54XA Collapsed vertebra, not elsewhere classified, thoracic region, initial encounter for fracture; S01.01XA Laceration without foreign body of scalp, initial encounter; I50.9 Heart failure, unspecified; Z66 Do not resuscitate; I49.9 Cardiac arrhythmia, unspecified; M85.88 Other specified disorders of bone density and structure, other site; M19.90 Unspecified osteoarthritis, unspecified site; W10.9XXA Fall (on) (from) unspecified stairs and steps, initial encounter; R29.6 Repeated falls; R40.2423 Glasgow coma scale score 9-12, at hospital admission; Z95.0 Presence of cardiac pacemaker; Z79.899 Other long term (current) drug therapy; Z79.82 Long term (current) use of aspirin
CPT/HCPCS: 12001; 36415; 70450; 71045; 72125; 80053; 85025; J7040; A9270-GY; J2060